=== PATIENT | female | born 1995 | race Caucasian/White ===

== ENCOUNTER → 2017-12-06 08:40 | Outpatient (CLI) | payer OTHER, SELFPAY ==
--- NOTE | 2017-12-06 08:45 | RAD_ITS ---
STUDY: X-RAY - LEFT WRIST REASON FOR EXAM: Female, 22 years old. pain s/p lifting heavy objects at work x3 days. TECHNIQUE: 4 view(s) of the wrist were obtained. COMPARISON: None. FINDINGS: Normal visualized distal radius and ulna. Normal radiocarpal articulation. Normal distal radioulnar articulation. Normal carpal bones. Normal carpal articulations. Normal carpometacarpal articulation of the thumb. Normal second through fifth carpometacarpal articulations. Normal visualized metacarpal bones. The soft tissue structures are unremarkable. RAD/Wrist min 3 Views IMPRESSION: Normal x-ray examination of the wrist. Electronically Signed: Matias Marino MD at 9:11 EDT Tel , Service support ,
== END ==
PROVIDERS: Family Provider Physician Assistant Medical; PCP Physician Assistant Medical; Visit Provider Physician Assistant
DX: M25.531 Pain in right wrist (principal)
CPT/HCPCS: 73110

== ENCOUNTER 2018-02-25 16:30 | Outpatient (RCR) | payer OTHER, SELFPAY ==
--- NOTE | 2018-01-30 18:40 | HP.OTEVAL ---
Patient's Visit Information IVONE SALGADO is a 22 year old F, referred to Occupational Therapy by DASHA Del Angel, with a diagnosis of Wrist Sprain. Date of Evaluation: 01/30/18 Occupational Therapist: Vesta aGrcia - Subjective Subjective: Pt., arrived for OT evaluation. She notd that she sprained wrist back in November. She noted two weeks later got release and another three weeks went back to job she job causing wrist pain intially. Noted that since going back to that job she start having severe pain in R wrist. She is R handed. She noted as of now she is doing other things at this time. Movement casuing back and lifitng overhead. Notes she has been icing every night and has been elvating every night. - Pain Right Wrist 5 Pain Intensity Range: 2, 8 - ROM Forearm: sup R WFL, L WNL increased pain on R to 3/10 Wrist: flexion R 0-49, L 0-79;ext R 0-39 (pain 6/10); L 0-60 Radial Abduction: R 0-63; L 0-60 ROM Comments: Radial dev on R 0-14 with increased pain to 8/10 with visible grimaces and holding breath, L 0-19; Ulnar deviation R 0-15 pain to 8/10 with increased holding breath and grimaces, L 0-30. Notes that she has increased pain with ulnar deviation. Maybe potential involvement of radioulnar ligament as well as additional ligaments. Does not seem to be direct result of injury but repetitive use and does have potential to be tendon related although appears more ligamental at this time. Pt. able to make composite fist is at 6-7/10. If pain does not reside after tx further imaging is recommended. 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 Notes it feels like knifes and needles at hitting my hand. This typically occurs at night. 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 Goal:: Ivone to increased ROM to WFL and similar to L non affected wrists 2/3 trials 75% of the time to promote increased ROM and ability to return to completed ADL/IADLs including all work related tasks by d/c. Goal:: Ivone to have no more than 1/10 pain, especially with radial or ulnar deviation, during fx tasks 4/ 5 trials 80% of the time to promote returning to work and increasing ability to complete tasks at PLOF by d/c. Goal:: Ivone to be (I) to recite and implement joint protection and correct ergonomics of R wrist to help decrease risk of further or reinjury 4/5 trials 80% of the time by d/c . Goal:: Ivone to be (I) to return to all ADl/IADls including all work tasks at PLOF 4/5 traisl 80% of the time with minimal pain by time of d/c. - Rehabilitation General Assessment: hand or fingers pain. Pain symptoms worse with radial and ulnar deviation. Pain increased to 8/10 with such movements. X-rays taken back in November indicates no fractures. ROm is limited compared to L unaffected side and strength is significantly impaired. If symptoms do not resolve by end of treatment she will need to follow up with physician. Rehabilitation Potential: Good - Anticipated Interventions Anticipated Interventions: A/AAROM/PROM, Strengthening, Edema Control, Massage, Modalities, Orthoses, Joint Protection/Energy Conservation, Ergonomic Education, Fine Motor Coord/Rohit, ADL Training, Caregiver Training, Home Program - Visit Plan Frequency: 3x /Week Duration: 4 Weeks General Plan: Ivone to be treated by OT with use of modalities for pain management, fabrication of wrist splint to be in least restrictive device, ROM, progressive strengthening, and functional tasks to promote returning to all ADL/IADls and work related tasks by d/c. TEXT: Thank you for the opportunity to evaluate your patient. For Medicare and Medicare HMO plans, please review the plan of care and approve it. It will need to be FAXED BACK to us at [phone] for Medicare purposes. Please let me know if there are questions or concerns regarding this plan of care. Physician Signature: Date:
--- NOTE | 2018-02-13 17:07 | HP.OTREVAL ---
DASHA Del Angel, It has been my pleasure to treat IVONE SALGADO over the last 7 visits for Wrist Sprain. Please see the progress note below for an update on the occupational therapy plan of care! Subjective: pt states she is doing ok- wear splint at work mostly- pt states she is hopeful to return to work when she sees the doctor 02-14-18. pt states she needs to lift 50# at work but states she doesnt have to lift that much wt. very often. 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 Objective/Function: pt demo a increase pt functional ROM of right-. Right wrist 75/75 initial was 39/49. right radial dev. 20 and ulnar dev. 25 this is a increase from 14 RD and 15 UD-pt states she is out of the splint for about two hours at a time. pt states she is sometimes sleeping with her splint on. Pt states the past two nights she has not been sleeping with her brace-. 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 Goal:: Ivone to increased ROM to WFL and similar to L non affected wrists 2/3 trials 75% of the time to promote increased ROM and ability to return to completed ADL/IADLs including all work related tasks by d/c. Goal:: Ivone to have no more than 1/10 pain, especially with radial or ulnar deviation, during fx tasks 4/ 5 trials 80% of the time to promote returning to work and increasing ability to complete tasks at PLOF by d/c. Goal:: Ivone to be (I) to recite and implement joint protection and correct ergonomics of R wrist to help decrease risk of further or reinjury 4/5 trials 80% of the time by d/c . Goal:: Ivone to be (I) to return to all ADl/IADls including all work tasks at PLOF 4/5 traisl 80% of the time with minimal pain by time of d/c. Anticipated Interventions Anticipated Interventions: A/AAROM/PROM, Strengthening, Edema Control, Massage, Modalities, Orthoses, Joint Protection/Energy Conservation, Ergonomic Education, Fine Motor Coord/Rohit, ADL Training, Caregiver Training, Home Program Please do not hesitate to contact me at [phone] by phone or if you have questions or concerns regarding this new plan of care! Sincerely, Luna Macias, OTR/L, CHT
--- NOTE | 2018-02-25 16:30 | DT_ITS ---
This patient was seen during an EMR downtime February 18, 2018 - February 25, 2018. This patient may have a combination of paper and electronic documentation or all paper documentation. All documentation is viewable within the e-chart portion of [facility] for each patient visit.
--- NOTE | 2018-03-04 14:26 | HP.OTDCSUM ---
HP - OT D/C Summary It has been my pleasure to treat IVONE SALGADO under orders from DASHA Del Angel, for the diagnosis of Wrist Sprain for a total of 8 visit(s). Please see the following information for a summary of their discharge status. - Overall Improvement % Improvement: 85 - Objective Objective/Function: Reassessment occurred on this date. Measurement are as follows: ROM wrist flexion R 0-84, L WNL; wrist ext R 0-54, L WNL. 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 She has progressed since initial evaluation and meant most goals. She will be d/c'd at this time. due to electronic downtime procedure the information from February 18- was electronically scanned into the medical record. 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 Goal:: Ivone to increased ROM to WFL and similar to L non affected wrists 2/3 trials 75% of the time to promote increased ROM and ability to return to completed ADL/IADLs including all work related tasks by d/c. Goal:: Ivone to have no more than 1/10 pain, especially with radial or ulnar deviation, during fx tasks 4/ 5 trials 80% of the time to promote returning to work and increasing ability to complete tasks at PLOF by d/c. Goal:: Ivone to be (I) to recite and implement joint protection and correct ergonomics of R wrist to help decrease risk of further or reinjury 4/5 trials 80% of the time by d/c . Goal:: Ivone to be (I) to return to all ADl/IADls including all work tasks at PLOF 4/5 traisl 80% of the time with minimal pain by time of d/c. - Plan Plan: Ivone will be d/c'd today. She is doing well. She is to continue to wear brace at work and have it off at home. She is to continue HEP for increased stability of wrist and decrease risk of reinjury, Ivone is to call with questions/ concerns. - D/C Information If there are questions or concerns regarding this patient's occupational therapy, please fell free to call me at [phone]. Thank you for the referral of this patient. Sincerely, Vesta Garcia
== END 2018-02-25 19:00 | disposition home or self-care (01) ==
LOC: OT 16:30
PROVIDERS: Family Provider Physician Assistant Medical; PCP Physician Assistant Medical; Visit Provider Physician Assistant
DX: S63.501D Unspecified sprain of right wrist, subsequent encounter (principal)
CPT/HCPCS: 97035; 97110; 97166; 97168; 97530; 97760

== ENCOUNTER → 2019-05-26 | Outpatient (CLI) | payer BC, SELFPAY ==
[2018-02-14 15:11] VITALS: BMI 32.8
== END | disposition home or self-care (01) ==
LOC: LABSPEC 17:09
PROVIDERS: Family Provider Physician Assistant Medical; PCP Physician Assistant Medical; Referring Provider Obstetrics & Gynecology; Visit Provider Obstetrics & Gynecology
DX: Z12.4 Encounter for screening for malignant neoplasm of cervix (principal)
CPT/HCPCS: 88175; G0145

== ENCOUNTER 2020-04-14 08:17 | Emergency (ER) | payer BC, SELFPAY ==
[2020-04-14 08:18] VITALS: BP 165/95; PULSE 90; RESP 16; TEMP 36.6; O2SAT 99; BMI 38.2
[2020-04-14 08:34] VITALS: BP 165/95; PULSE 90; RESP 16; TEMP 36.6; O2SAT 99
[2020-04-14 08:36] LABS: Mucous, Urine 0 SEEN /hpf (<or=2+); Red Blood Cells-Urine 0 SEEN /hpf (0-5); White Blood Cells 0 SEEN /hpf (0-5)
[2020-04-14 08:43] LABS: Absolute Lymphocyte Count 1.58 X10^3/uL (0.83-4.51); Absolute Neutrophil Count 3.9 X10^3/uL (2.0-7.7); Basophil# 0.03 X10^3/uL; Basophil% 0.5 % (0-1); Eosinophil# 0.05 X10^3/uL; Eosinophils% 0.8 % (0-5); Hemoglobin 13.2 g/dL (12.0-15.0); Lymphocyte # 1.58 X10^3/ul (4.0); Lymphocyte % 26.6 % (19-41); Mean Corpuscular Hgb 30.1 pg (27.0-32.0); Mean Corpuscular Volume 91.1 fL (81-99); Mean Platelet Vol. 10.6 fl (6.2-12.0); Monocyte% 6.7 % (0-10); NRBC Flagged by Analyzer 0 % (0-5); Neutrophil # 3.88 X10^3/uL (2.7-7.7); Neutrophil % 65.2 % (47-70); Platelet Count 217 K/mm3 (150-450); RBC Distribution Width CV 12.2 % (11.6-14.6); RBC Distribution Width SD 40.6 fl (35.1-43.9); Red Blood Count 4.39 M/mm3 (4.2-5.4)
[2020-04-14 08:48] LABS: Color, Urine Yellow (Yellow); Glucose, Dipstick Normal (Normal); Ketone-Dipstick Negative (Negative); Leukocyte Esterase-Dipstick Negative /ul (Negative); Nitrite-Dipstick Negative (Negative); Occult Blood-Urine Negative /ul (Negative); Protein-Dipstick Negative (Negative); Urine Bilirubin Dipstick Negative (Negative); Urine Clarity Clear (Clear); Urine Urobilinogen Normal (Normal)
[2020-04-14 08:51] LABS: Internal QC Validated? YES +Cl - CLEAR BKGD; Pregnancy, Serum, hCG Quali. NEGATIVE Negative
[2020-04-14 08:56] LABS: Anion Gap 3 (5-15); BUN 9 mg/dL (7-18); Calcium,Total 8.6 mg/dL (8.5-10.1); Chloride 112 mmol/L (98-107); Creatinine, Serum 0.75 mg/dL (0.55-1.02); EST Glomerular Filtration Rate 101 mL/min (>60); Est Glom Filt Rate - Afr Amer 122 mL/min (>60); Estimated Creatinine Clearance 104.98 ml/min; Glucose 92 mg/dL (74-106); Potassium 3.6 mmol/L (3.5-5.1); Sodium Level 142 mmol/L (136-145)
[2020-04-14 08:59] LABS: Squamous Epithelial Cells - UA 0-5 SEEN /hpf (5-10)
[2020-04-14 09:01] LABS: Bacteria RARE /hpf (None Seen)
--- NOTE | 2020-04-14 09:10 | CT_ITS ---
STUDY: CT ABDOMEN AND PELVIS WITHOUT CONTRAST REASON FOR EXAM: Female, 24 years old. RLQ AND RIGHT FLANK PAIN RADIATION DOSAGE (If Supplied By Facility): CTDIvol = ( 17.80 ) mGy, DLP = ( 2172.17 ) mGycm TECHNIQUE: Transaxial images were obtained from the dome of the diaphragm to the symphysis pubis without oral contrast, and without intravenous contrast. Sagittal and coronal images were reconstructed. Individualized dose optimization techniques were used for this CT. COMPARISON: None. FINDINGS: The visualized lung bases are unremarkable. The visualized portions of the heart are within normal limits. Normal liver. Normal gallbladder and extrahepatic biliary system. There is a 1 cm cyst along the inferior lateral aspect of the spleen. Mild splenomegaly. Normal pancreas. Normal bilateral adrenal glands. Normal right kidney. Normal left kidney. Normal visualized stomach. Normal small intestine. Normal colon. The appendix is visualized and appears normal. Normal abdominal aorta. Normal inferior vena cava. Normal retroperitoneum. Normal urinary bladder. A dominant follicle measuring 1.3 cm is seen in the right ovary. Normal abdominal wall. Normal osseous structures. CT/Abdomen/Pelvis W IV Cont ONLY IMPRESSION: Dominant follicle seen in the right ovary. Electronically Signed: Sudhakar Garcia, at 9:56 EDT , Service support ,
--- NOTE | 2020-04-14 09:11 | ED.VIS.GEN ---
History of Present Illness Chief Complaint: Flank Pain Informant: Patient Narrative: 24-year-old female with no reported medical problems presents with right-sided abdominal pain. She states is in her right lower quadrant. It was gradually building up over the last couple of days. Patient has not had a fever. Today she states that she had an episode of nausea and vomiting prior to arrival. She does admit to some urinary symptoms and possibly frequency. She does not have hematuria. She has no concern for . No previous surgeries in the abdomen. She has no vaginal complaints. Constipation or diarrhea. Past Medical History - Allergies and Home Meds Allergies/Adverse Reactions: Allergies No Known Allergies Allergy (Verified 04/14/20 08:17) Primary Care Physician: Lynn Davis PA [Primary Care Provider] - Prior records reviewed: Yes Surgical History: no surgical history Lives: With Family Smoking Status: Never smoker Alcohol: None Drugs: None Review of Systems General: Denies: Chills, Fever, Sweats Eyes: Denies: Visual changes - bilaterally, Diplopia ENT: Denies: Rhinorrhea, Sore throat Cardiovascular: Denies: Chest pain, Palpitations Respiratory: Denies: Dyspnea, Cough, Dyspnea on exertion Gastrointestinal: Reports: Abdominal pain, Nausea, Vomiting. Denies: Diarrhea, Melena, Hematochezia Genitourinary: Denies: Dysuria, Hematuria, Frequency Musculoskeletal: Denies: Back pain, Extremity Pain Skin: Denies: Rash, Wounds Neurological: Denies: Headache, Weakness, Numbness Physical Exam Vital Signs/Narrative: Vital Signs Temp Pulse Resp BP Pulse Ox 04/14/20 08:34 98 F 90 16 165/95 H 99 04/14/20 08:18 98 F 90 16 165/95 H 99 Inital Vital Signs reviewed: Yes General: Well nourished, Well developed, No Acute Distress Head: Normocephalic, Atraumatic Eyes: Perrl, EOMI ENT: Moist mucous membranes, No rhinorrhea Neck: Supple, Nontender Cardiovascular: Regular rate, Regular rhythm Respiratory: No distress Abdomen: Soft, Nondistended, Tender - Numbness to palpation in the right flank and right lower quadrant. Back: Nontender, Normal Inspection Extremities: Nontender, No edema Skin: Normal color, No rash Neurological: Alert, Oriented x3 Psychological: Normal affect, Normal Mood Diagnostic/Tx/Re-eval Clinical Impression(s) from Imaging Studies Abdomen/Pelvis CT 04/14/20 09:10 IMPRESSION: Dominant follicle seen in the right ovary. Electronically Signed: Sudhakar Garcia, at 9:56 EDT , Service support , Transvaginal US 04/14/20 10:03 IMPRESSION: Dominant follicle in the right ovary measuring 1.4 cm x 1.2 cm x 0.7 cm. Electronically Signed: Sudhakar Garcia, at 11:14 EDT , Service support , Laboratory Data 04/14/20 04/14/20 04/14/20 08:25 08:32 08:32 WBC 6.0 RBC 4.39 Hgb 13.2 Hct 40.0 MCV 91.1 MCH 30.1 MCHC 33.0 RDW Std Deviation 40.6 RDW Coeff of Belle 12.2 Plt Count 217 MPV 10.6 Immature Gran % (Auto) 0.200 Neut % (Auto) 65.2 Lymph % (Auto) 26.6 [place] % (Auto) 6.7 Eos % (Auto) 0.8 Baso % (Auto) 0.5 Absolute Neuts (auto) 3.9 Absolute Lymphs (auto) 1.58 Nucleated RBC % 0 Sodium 142 Potassium 3.6 Chloride 112 H Carbon Dioxide 27.0 Anion Gap 3 L BUN 9 Creatinine 0.75 Estim Creat Clear Calc 104.98 Est GFR (MDRD) Af Amer 122 Est GFR (MDRD) Non-Af 101 BUN/Creatinine Ratio 12.0 Glucose 92 Calcium 8.6 Serum , Qual Urine Color Yellow Urine Clarity Clear Urine pH 8.0 Ur Specific [place] 1.010 Urine Protein Negative Urine Glucose (UA) Normal Urine Ketones Negative Urine Occult Blood Negative Urine Nitrite Negative Urine Bilirubin Negative Urine Urobilinogen Normal Ur Leukocyte Esterase Negative Urine RBC 0 SEEN Urine WBC 0 SEEN Ur Squamous Epith Cells 0-5 SEEN Urine Bacteria RARE Urine Mucus 0 SEEN 04/14/20 08:32 WBC RBC Hgb Hct MCV MCH MCHC RDW Std Deviation RDW Coeff of [place] Plt Count MPV Immature Gran % (Auto) Neut % (Auto) Lymph % (Auto) [place] % (Auto) Eos % (Auto) Baso % (Auto) Absolute Neuts (auto) Absolute Lymphs (auto) Nucleated RBC % Sodium Potassium Chloride Carbon Dioxide Anion Gap BUN Creatinine Estim Creat Clear Calc Est GFR (MDRD) Af Amer Est GFR (MDRD) Non-Af BUN/Creatinine Ratio Glucose Calcium Serum , Qual NEGATIVE Urine Color Urine Clarity Urine pH Ur Specific [place] Urine Protein Urine Glucose (UA) Urine Ketones Urine Occult Blood Urine Nitrite Urine Bilirubin Urine Urobilinogen Ur Leukocyte Esterase Urine RBC Urine WBC Ur Squamous Epith Cells Urine Bacteria Urine Mucus - Medical Decision Making Patient was seen and evaluated on arrival for right-sided abdominal pain. Initially she was complaining of urinary complaints and I thought she could have pyelonephritis however urinalysis is clean. There is no blood or bacteria. At this point I did work-up for appendicitis. Her lab work was normal. Her CT abdomen pelvis showed an ovarian follicle. I did offer her ultrasound to better elucidate this and she did wish to have it. After ultrasound was performed the digit show an ovarian follicle. 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 If she has any worsening problems she should return to the ER. She was amenable to this plan. Patient stable for discharge. Impression: 1. Ovarian follicle 2. Abdominal pain ED Disposition - Plan for ED Patient: Disposition: Home or Assisted Living Diagnosis: Follicle cyst Prescriptions: Ibuprofen 600 mg PO Q8H PRN PRN #30 tab PRN Reason: pain Transmission Status: Received by [id number] Ondansetron [Zofran Odt] 4 mg PO Q8H PRN PRN #10 tab PRN Reason: Nausea Transmission Status: Received by [facility] Referrals: Lynn Davis PA [Primary Care Provider] -
[2020-04-14] MEDS: Ondansetron 4 MG/2 ML Vial IM (09:16)
[2020-04-14] MEDS: 0.9% Normal Saline 1,000 ML 999 ML IV (09:16)
[2020-04-14] MEDS: Morphine 4 MG/ML Syringe IV (09:16)
--- NOTE | 2020-04-14 10:03 | US_ITS ---
STUDY: ULTRASOUND OF THE FEMALE PELVIS - COMPLETE REASON FOR EXAM: Female, 24 years old. RT FLANK PAIN -- F/U CT LMP: 03/26/2020. TECHNIQUE: Transvaginal TECHNICAL QUALITY: Adequate. COMPARISON: Comparison is made with prior CT scan the abdomen and pelvis done earlier in the day. FINDINGS: The uterus is anteverted and is in a midline position. The uterus measures 6.3 cm x 3.6 cm x 2.2 cm. There is a Nabothian cyst of the cervix. The endometrium measures 8.0 mm in thickness, and is hyperechoic. There is no demonstrated endometrial mass. There is no demonstrated myometrial mass. I.U.D. - The patient does not have an I.U.D. The right ovary is visualized. The right ovary measures 3.7 cm x 3.4 cm x 2.0 cm. A dominant follicle is seen within the ovary. It measures 1.4 cm x 1.2 cm x 0.7 cm. There is no visualized right adnexal mass or complex lesion. There is normal arterial and normal venous vascularity. The left ovary is visualized. The left ovary measures 1.8 cm x 2.1 cm x 2.4 cm. There is no left ovarian cyst or ovarian mass. There is no visualized left adnexal mass or complex lesion. There is normal arterial and normal venous vascularity. There is no fluid in the cul-de-sac. US/Transvaginal Non- IMPRESSION: Dominant follicle in the right ovary measuring 1.4 cm x 1.2 cm x 0.7 cm. Electronically Signed: Sudhakar Garcia, at 11:14 EDT , Service support ,
[2020-04-14 12:04] VITALS: BP 121/65; PULSE 77; RESP 14; O2SAT 99
== END 2020-04-14 12:06 | disposition home or self-care (01) ==
PROVIDERS: Emergency Provider Student in an Organized Health Care Education/Training Program; PCP Physician Assistant Medical
DX: N83.8 Other noninflammatory disorders of ovary, fallopian tube and broad ligament (principal); R10.9 Unspecified abdominal pain
CPT/HCPCS: 74177; 76830; 80048; 81001; 84703; 85025; 93976; 96361; 96372; 96374; 99283; J7030; Q9967; A4216; J2405

== ENCOUNTER 2020-06-19 08:39 | Emergency (ER) | payer SELFPAY ==
[2020-06-19 08:40] VITALS: BP 147/82; PULSE 99; RESP 17; TEMP 37.2; O2SAT 100; BMI 38.2
--- NOTE | 2020-06-19 08:52 | ED.DCSUM_ITS ---
- ER Visit Summary Date of Service: 06/19/20 Chief Complaint: Abdominal pain History of Present Illness: The patient is a [address] Davis and Dr. Mohan. She reports that she had intermittent abdominal pain for approximately 1 month. States it lasts approximately 1 minute when it comes on. It is epigastric in location. She describes it as a sharp pain. Pain is 0 out of 10 currently and 10 out of 10 at worst. It seems to be worsened by spicy foods and relieved by milk. Reports that she is been nausea and vomited 3 times. No blood in her emesis. Her last bowel was today. Typically she goes every 2 days. She complains of frequent urination, but denies dysuria. States her last menstrual period was 4-1/2 weeks ago. She denies any vaginal bleeding or discharge. She does report she could be . She is a G0, P0. Physical Examination: Vitals: Stable. Afebrile. General: Well-nourished and well-developed. Head: Normocephalic atraumatic. Neck: Supple, no lymphadenopathy. No JVD. Nontender. Cardiovascular: Regular rate and rhythm. No murmurs. Respiratory: No respiratory distress. Clear to auscultation bilaterally. Abdominal: Soft, mild diffuse tenderness palpation that is worse in the epigastric region. No localized tenderness in the right upper or lower quadrants, nondistended, normal bowel sounds. No guarding, rebound, or peritoneal signs. Back: Nontender. Extremities: Nontender, no edema. Skin: Normal color, no rash. Neurologic: Alert and oriented ?3. Cranial nerves II through XII are intact. Normal strength and sensation. Psych: Normal affect. Test Results: CBC is normal. Chem-7 shows a chloride of 110 glucose 131. LFTs show an AST of 13. Lipase is 50. UA is negative. test is positive. Quantitative hCG shows 216. Emergency Department Course and Treatment: Patient had an IV placed. She was given Zofran IV and a GI cocktail p.o. She is resting more comfortably. Patient has no vaginal bleeding or lower abdominal pain that would be indicative of an ectopic . I do not think that an ultrasound is indicated at this time. Treatment Plan: Patient was discussed with Dr. Amanda Enrique. She will be discharged with a repeat quant in 2 days and instructed follow-up with Dr. Mohan for further evaluation. The signs and symptoms of a ectopic were discussed. She is instructed return for these. She will be discharged with Zofran and Pepcid. Disposition: To home in improved and stable condition. Impression: 1. . This note was generated with [employer] software. It may contain incorrect words, spelling, and punctuation that were not noted in review of the chart prior to signing ED Disposition - Plan for ED Patient: Instructions: ED Established Normal Symptoms Prescriptions: Famotidine [Pepcid] 20 mg PO BID #28 tab Ondansetron [Zofran Odt] 4 mg PO Q8H PRN PRN #10 tab PRN Reason: Nausea Referrals: Gerard Mohan MD [STAFF PHYSICIAN] - 2 Days
[2020-06-19 08:56] LABS: Bacteria 0 SEEN /hpf (None Seen); Mucous, Urine 0 SEEN /hpf (<or=2+); Red Blood Cells-Urine 0 SEEN /hpf (0-5)
[2020-06-19 08:57] LABS: Color, Urine Yellow (Yellow); Glucose, Dipstick Normal (Normal); Ketone-Dipstick Negative (Negative); Leukocyte Esterase-Dipstick 25 /ul (Negative); Nitrite-Dipstick Negative (Negative); Occult Blood-Urine Negative /ul (Negative); Protein-Dipstick Negative (Negative); Urine Bilirubin Dipstick Negative (Negative); Urine Clarity Clear (Clear); Urine Urobilinogen Normal (Normal)
[2020-06-19 09:03] LABS: Squamous Epithelial Cells - UA 5-10 SEEN /hpf (5-10); White Blood Cells 0-5 SEEN /hpf (0-5)
[2020-06-19] MEDS: Mag Hydrox/Al Hydrox/Simeth 30 ML UDC PO (09:04)
[2020-06-19] MEDS: 0.9% Normal Saline 1,000 ML 1000 ML IV (09:04)
[2020-06-19] MEDS: Ondansetron 4 MG/2 ML Vial IV (09:04)
[2020-06-19 09:13] LABS: Absolute Lymphocyte Count 1.63 X10^3/uL (0.83-4.51); Absolute Neutrophil Count 5.2 X10^3/uL (2.0-7.7); Basophil# 0.03 X10^3/uL; Basophil% 0.4 % (0-1); Eosinophils% 1.3 % (0-5); Hematocrit 39.7 % (37-47); Hemoglobin 12.9 g/dL (12.0-15.0); Lymphocyte # 1.63 X10^3/ul (4.0); Lymphocyte % 21.6 % (19-41); Mean Corp Hgb Conc 32.5 g/dL (32-36); Mean Corpuscular Hgb 29.9 pg (27.0-32.0); Mean Corpuscular Volume 91.9 fL (81-99); Mean Platelet Vol. 9.8 fl (6.2-12.0); Monocyte# 0.57 X10^3/uL; Monocyte% 7.5 % (0-10); NRBC Flagged by Analyzer 0 % (0-5); Neutrophil # 5.19 X10^3/uL (2.7-7.7); Neutrophil % 68.8 % (47-70); Platelet Count 249 K/mm3 (150-450); RBC Distribution Width CV 12.9 % (11.6-14.6); Red Blood Count 4.32 M/mm3 (4.2-5.4); White Blood Count 7.6 K/mm3 (4.4-11.0)
[2020-06-19 09:29] LABS: Internal QC Validated? YES +Cl - CLEAR BKGD
[2020-06-19 09:32] LABS: Pregnancy, Serum, hCG Quali. POSITIVE Negative
[2020-06-19 09:34] LABS: AST(SGOT) 13 U/L (15-37); Alanine Aminotransfer ALT/SGPT 33 U/L (13-56); Albumin, Serum 3.6 g/dL (3.2-5.0); Alkaline Phosphatase 67 U/L (45-117); Anion Gap 5 (5-15); BUN 13 mg/dL (7-18); BUN/Creat Ratio 15.7 RATIO (10-20); Calcium,Total 9.1 mg/dL (8.5-10.1); Chloride 110 mmol/L (98-107); Creatinine, Serum 0.83 mg/dL (0.55-1.02); EST Glomerular Filtration Rate 90 mL/min (>60); Est Glom Filt Rate - Afr Amer 109 mL/min (>60); Estimated Creatinine Clearance 94.86 ml/min; Globulin 3.7 g/dL (2.2-4.2); Glucose 131 mg/dL (74-106); Lipase 50 U/L (73-393); Potassium 3.9 mmol/L (3.5-5.1); Protein, Total 7.3 g/dL (6.4-8.2); Sodium Level 141 mmol/L (136-145)
[2020-06-19 09:57] LABS: hCG Titer Quant., Serum 216 mIU/mL (1-3)
== END 2020-06-19 10:30 | disposition home or self-care (01) ==
LOC: ED 09:16
PROVIDERS: Emergency Provider Emergency Medicine; PCP Physician Assistant Medical
DX: O26.899 Other specified pregnancy related conditions, unspecified trimester (principal); R10.13 Epigastric pain; Z3A.00 Weeks of gestation of pregnancy not specified
CPT/HCPCS: 80053; 81001; 83690; 84702; 84703; 85025; 96361; 96374; 99283; J7030; J2405

== ENCOUNTER → 2020-06-21 | Outpatient (CLI) | payer BC, SELFPAY ==
[2020-06-19 08:40] VITALS: BMI 38.2
[2020-06-21 11:10] LABS: hCG Titer Quant., Serum 507 mIU/mL (1-3)
== END | disposition home or self-care (01) ==
LOC: WOBLAB 09:18
PROVIDERS: PCP Physician Assistant Medical; Visit Provider Obstetrics & Gynecology
DX: N91.2 Amenorrhea, unspecified (principal)
CPT/HCPCS: 36415; 84702

== ENCOUNTER → 2020-07-05 | Outpatient (CLI) | payer BC, SELFPAY ==
[2020-06-19 08:40] VITALS: BMI 38.2
[2020-07-08 03:07] LABS: Chlamydia By Nucleic Acid AMP Negative (Negative)
[2020-07-08 08:27] LABS: Gonococcus By Nucleic Acid AMP Negative (Negative)
== END | disposition home or self-care (01) ==
PROVIDERS: Obstetrics & Gynecology
DX: Z12.4 Encounter for screening for malignant neoplasm of cervix (principal); Z11.3 Encounter for screening for infections with a predominantly sexual mode of transmission
CPT/HCPCS: 87491; 87591; 88175; G0145

== ENCOUNTER 2020-07-21 13:43 | Day surgery (SDC) | payer MEDICAID, SELFPAY ==
[2020-07-19 14:37] LABS: Hematocrit 37.1 % (37-47); Mean Corp Hgb Conc 32.3 g/dL (32-36); Mean Corpuscular Hgb 29.6 pg (27.0-32.0); Mean Corpuscular Volume 91.4 fL (81-99); Platelet Count 236 K/mm3 (150-450); RBC Distribution Width CV 12.6 % (11.6-14.6); RBC Distribution Width SD 42.3 fl (35.1-43.9); Red Blood Count 4.06 M/mm3 (4.2-5.4); White Blood Count 9.7 K/mm3 (4.4-11.0)
--- NOTE | 2020-07-21 08:54 | PCM.HP.BLA ---
History and Physical Date of Admission: 07/21/20 Date: 07/19/2020 Name: IVONE SALGADO Age: 25 Date of : 1995 HISTORY OF PRESENT ILLNESS: On 07/19/2020, Ivone Salgado, a 25 year old female 0 0 1 0 0, presented for: -- Inevitable Miscarriage -- Ivone is being seen for follow up visit. FOB is with pt for visit today. Pt had US prior to visit that showed nonviable IUP. Dr. Mohan to go over US with pt. Pt and FOB opted to do D and C. Procedure consents were signed and reviewed with pt. Medications and allergies are up tod date. ALLERGIES: No Known Allergies MEDICATIONS HISTORY: Current medications prescribed by our practice are: 1. promethazine 12.5 mg tablet, 1 or 2 pills by mouth every 6 hours as needed for nausea REVIEW OF SYSTEMS: GENERAL - Denies fever, or chills SKIN - Denies skin changes EYES - Denies visual changes EARS - Denies difficulty hearing NOSE - Denies nasal congestion or bleeding MOUTH - Denies sore throat or difficulty swallowing NECK - Denies pain or swelling RESPIRATORY - Denies shortness of breath or wheezing CARDIOVASCULAR - Denies palpitations or chest pain GASTROINTESTINAL - Denies nausea, vomiting, diarrhea, constipation GENITOURINARY - Denies dysuria, frequency of urination, incontinence of urine MUSCULOSKELETAL - Denies joint or muscle pain NEUROLOGICAL - Denies localized numbness or weakness PSYCHIATRIC - Denies depression or anxiety ENDOCRINE - Denies heat or cold intolerance, weight loss or gain HEMATO-IMMUNOLOGIC - Denies excesive bleeding with cuts PAST HISTORY: Breast/Ovarian/Colon Cancers - Maternal Grandmother had Breast Cancer approximately age 50-60 Infections - Varacella Vaccine Illnesses - no serious past illnesses Accidents - None History of Abnormal PAPS - Denies Hospitalizations - see surgery SURGICAL HISTORY: 1. T and A, 2005 2. 2012 [place] Teeth Removal MENSTRUAL HISTORY: LMP Known?- DefiniteAmount/Duration - 5 days, Regularity - Regular, Frequency - monthly days, LMP - 05/19/20, Age Onset Menarche - 13 PAST PREGNANCIES: Total Pregnancies - 1; Full Term Pregnancies - 0; Premature - 0; Abortions, Induced - 0; Abortions, Spontaneous - 1; Ectopics - 0; Multiple Births - 0; Living Children - 0 FAMILY HISTORY: MaternalGrandparent - Carcinoma of breast; MaternalGrandparent - Type 2 Diabetes; SOCIAL HISTORY: Alcohol Use - RARELY Smoking - Never Diet - no special diet Lifestyle - moderate stress lifestyle and single Exercise - active work Seat Belt Use - always Employer - [employer] 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 Threaten Antepart PLAN BY DIAGNOSIS: 1. Inevitable Miscarriage. Reviewed u/s with patient and showing 8w2d IUP without FHTs. Discussed options for treatment including expectant management vs proceeding with suction D and E and pt desires the surgery. Discussed RBAs and all questions answered.
[2020-07-21 14:01] VITALS: BP 129/78; PULSE 85; RESP 16; TEMP 36; O2SAT 99; BMI 41.8
[2020-07-21] MEDS: Lactated Ringers 1,000 ML 100 ML IV (14:26)
--- NOTE | 2020-07-21 15:15 | POC_PTH ---
PATIENT: CHUCKY PALACIOS LOC: [facility] [place] U#:[id number] AGE/SX: 25/F ROOM: RE07/21/[address]: Dr. Gerard Mohan MD : 1995 BED: DIS: 07/21/2020 SPEC #: [id number] RECD: 07/22/20 07:34 STATUS: JAMAAL REMontez #: [id number] ALMA ROSA: 07/21/20 15:[address]: Gerard Mohan DEPT: SURGICAL PATHOLOGY RECD BY: Mary Quiroz ENTERED: 07/22/20 09:01 SP TYPE: PROD CONC OTHR DR: DASHA Chery Tissues: Product of conception, NOS Procedures: Surgery Specimen Level IV HEADER OPERATION: Suction D & C PRE-OP DIAGNOSIS: Inevitable miscarriage TISSUE SUBMITTED: Products of conception MICROSCOPIC DIAGNOSIS Products of conception: Decidua and immature chorionic villi (products of conception). SJ:reena 07/23/20 MICROSCOPIC DESCRIPTION Slides are reviewed. GROSS DESCRIPTION Received in fixative is one container labeled with the patient's name and designated products of conception. The specimen consists of multiple fragments of pink hemorrhagic soft tissue that in aggregate measure 5.5 x 5 x 2 cm. tissue is not identified. Insurance Verification Specialist sections are submitted in three cassettes. / SJ:reena 07/22/20 TC:5 CPT: 39331
--- NOTE | 2020-07-21 15:19 | PCM.OPRPT ---
Report of Operation Date of Procedure: 07/21/20 Pre-Operative Diagnosis: Inevitable Miscarriage Post-Operative Diagnosis: Inevitable Miscarriage Surgery/Procedure Performed:: Suction Dilation and Evacuation Description of Surgical Findings:: 10 cm endometrial cavity with products of conception present. Type of Anesthesia:: General - LMA Anesthesiologist: Alpesh Castro Specimen's removed: Products of conception Estimated Blood Loss (mL): Minimal Fluids Replaced: Crystalloid Description of Procedure: Surgeon: Gerard Mohan MD, FACOG Indication: 25 year old patient with incomplete AB at 8 weeks 6-day weeks gestation with a 8-week 2-day IUP without FHTs. Pt has been counseled regarding the risks, benefits, and alternatives of this procedure and all questions were answered. Procedure: Patient was taken to the operating room where she was given IV sedation. The patient was prepped and draped in the usual sterile fashion. The anterior cervix was grasped with a tenaculum and cervix was dilated. An 9 mm suction curette was inserted into the cervix and all contents removed. Uterus was gently curetted and remaining tissue was removed by reinserting the suction curette. The patient tolerated the procedure well and was taken to the recovery room in satisfactory condition. Sponge, instruments and needle counts were all correct. There were no apparent complications of the surgery. Grafts/Implants Used: None - Complications None - Admit VTE Documentation VTE Present on Admission: Yes VTE Mechan Device Prophylaxis: SCD's
--- NOTE | 2020-07-21 15:23 | DCINST_ITS ---
Discharge Diet: No Restrictions Discharge Activity: Return to Normal Activity, May Shower, May Take a Tub Bath May resume sexual activity in: 2 weeks Call your doctor if you observe: Fever of 101 or Higher, Inability to urinate, Inability to have a bowel movement, Using more than one pad per hour Allergies/Adverse Reactions: Allergies No Known Allergies Allergy (Verified 07/21/20 13:58) Medications to take at Discharge Famotidine [Pepcid] 20 mg PO BID #28 tab 06/19/20 proMETHazine tablet [Phenergan tablet] 12.5 mg PO PRN PRN 07/19/20 Primary Care Physician: Lynn Davis, PA [Primary Care Provider] - Test Results: Test results from this visit will be discussed in further detail at your follow- up appointment, if applicable. Please Follow Up With: Gerard Mohan MD When: 2-3 weeks
[2020-07-21] MEDS: Lubricating Jelly 60 GM Tube 30 GM TOPICAL (15:31)
[2020-07-21 15:51] VITALS: BP 129/78; BP 145/85; PULSE 105; RESP 20; TEMP 36.2; O2SAT 99
[2020-07-21 15:55] VITALS: BP 129/78; BP 150/81; PULSE 91; RESP 18; O2SAT 100
[2020-07-21 16:00] VITALS: BP 129/78; BP 139/70; PULSE 89; RESP 16; O2SAT 100
[2020-07-21 16:05] VITALS: BP 128/82; BP 129/78; PULSE 73; RESP 16; TEMP 36.5; O2SAT 100
[2020-07-21] MEDS: HYDROcodone Bitartrate/Apap 5/325 Tablet PO (16:22)
[2020-07-21 17:29] VITALS: BP 127/76; BP 129/78; PULSE 85; RESP 16; TEMP 37.2; O2SAT 99
== END 2020-07-21 17:32 | disposition home or self-care (01) ==
LOC: SDC 13:44 → AC 13:45
PROVIDERS: PCP Physician Assistant Medical; Referring Provider Obstetrics & Gynecology; Visit Provider Obstetrics & Gynecology
PROC: (CPT 59812; principal; 2020-07-21 15:00)
DX: O03.4 Incomplete spontaneous abortion without complication (principal); K21.9 Gastro-esophageal reflux disease without esophagitis; Z79.899 Other long term (current) drug therapy
CPT/HCPCS: 01965; 59812; 36415; 85027; 86850; 86900; 86901; 87426; 88305; C9803; J2405

== ENCOUNTER 2020-09-15 12:18 | Emergency (ER) | payer BC, SELFPAY ==
[2020-09-15 12:19] VITALS: BP 162/87; PULSE 110; RESP 17; TEMP 37.6; O2SAT 98; BMI 43.2
--- NOTE | 2020-09-15 12:41 | RAD_ITS ---
STUDY: X-RAY CHEST REASON FOR EXAM: Female, 25 years old. COUGH, SHORTNESS OF BREATH X SEVERAL DAYS TECHNIQUE: Single AP portable view of the chest. COMPARISON: None. FINDINGS: The lungs are clear and expanded. There is no demonstrated pleural abnormality. Normal size heart. Normal mediastinum and renae. Normal visualized pulmonary arteries. Normal visualized aortic arch and descending thoracic aorta. Normal visualized thoracic spine. Normal visualized ribs, clavicles, and shoulders. There is no demonstrated abnormality of the visualized soft tissue structures of the upper abdomen. RAD/Chest 1 View (Portable) IMPRESSION: Normal x-ray examination of the chest. Electronically Signed: Glen Harrington, at 13:36 EST Tel , Service support ,
--- NOTE | 2020-09-15 12:43 | ED.DCSUM_ITS ---
- ER Visit Summary Date of Service: 09/15/20 Chief Complaint: Cough and sore throat History of Present Illness: The patient is a 25 F who presents with cough and sore throat that is been getting worse over the past 2 days. Patient states she has some rhinorrhea and is coughing up some sputum. Patient is unsure of the color. Patient states she is having some heaviness in her chest. Patient also admits to some palpitations. Patient admits to nausea but denies any vomiting. Patient admits to chills but denies any fevers. Patient also admits to a headache. Patient denies any loss of taste or smell. Physical Examination: Vital signs are stable except for mild tachycardia of 110. Patient is afebrile. Patient is in no acute distress. Oral mucosa is pink and moist. Oropharynx showed some mild postnasal drainage. There are no exudates. Neck is supple. Trachea is midline. There is no JVD. Heart was regular and slightly tachycardic. Lungs are clear but diminished bilaterally. There is good respiratory effort. Abdomen is soft. Bowel sounds are normal. There is no tenderness. Cranial nerves II through XII are intact. There are no focal motor or sensory deficits. Test Results: Portable 1 view chest x-ray was obtained. On my interpretation, lung richmond are clear. There is normal cardiac silhouette. Bony thorax is normal. There is no acute process noted. Radiologist also interpreted the x- ray and agrees. CBC and comprehensive metabolic profile were within normal limits. D-dimer was normal. Covid 19 rapid antigen was negative. Influenza swab was negative. Emergency Department Course and Treatment: Patient was given albuterol inhaler. Patient was feeling better on reevaluation. Patient was instructed to use her albuterol as needed. Patient was instructed to follow-up with her primary care physician in 5 to 7 days. Patient understood and was agreeable with the plan. All questions were answered. Disposition: Discharge home Impression: 1. Viral illness This note was generated with [employer] dictation software. It may contain incorrect words, spelling, and punctuation that were not noted in review of the chart prior to signing ED Disposition - Plan for ED Patient: Disposition: Home or Assisted Living Diagnosis: Viral upper respiratory tract infection with cough Instructions: ED URI, Viral, No Abx (Adult) Referrals: Susan,Lynn PA, PA [Primary Care Provider] - 3-5 Days
[2020-09-15 13:18] LABS: D-Dimer Quantitative (DVT/PE) <= 0.27 FEU/ug/m (0.27-0.49)
[2020-09-15 13:25] LABS: AST(SGOT) 21 U/L (15-37); Alanine Aminotransfer ALT/SGPT 42 U/L (13-56); Albumin, Serum 3.7 g/dL (3.2-5.0); Alkaline Phosphatase 85 U/L (45-117); Anion Gap 4 (5-15); BUN 15 mg/dL (7-18); Calcium,Total 8.8 mg/dL (8.5-10.1); Chloride 110 mmol/L (98-107); Creatinine, Serum 0.71 mg/dL (0.55-1.02); EST Glomerular Filtration Rate 107 mL/min (>60); Est Glom Filt Rate - Afr Amer 129 mL/min (>60); Estimated Creatinine Clearance 109.94 ml/min; Globulin 3.6 g/dL (2.2-4.2); Glucose 106 mg/dL (74-106); Potassium 3.9 mmol/L (3.5-5.1); Protein, Total 7.3 g/dL (6.4-8.2); Sodium Level 142 mmol/L (136-145)
[2020-09-15 13:30] VITALS: PULSE 103; RESP 15
[2020-09-15 13:45] LABS: Absolute Lymphocyte Count 1.17 X10^3/uL (0.83-4.51); Basophil# 0.02 X10^3/uL; Basophil% 0.2 % (0-1); Eosinophil# 0.21 X10^3/uL; Eosinophils% 2.6 % (0-5); Hematocrit 39.6 % (37-47); Hemoglobin 12.8 g/dL (12.0-15.0); Lymphocyte # 1.17 X10^3/ul (4.0); Lymphocyte % 14.3 % (19-41); Mean Corp Hgb Conc 32.3 g/dL (32-36); Mean Corpuscular Hgb 29.6 pg (27.0-32.0); Mean Corpuscular Volume 91.5 fL (81-99); Mean Platelet Vol. 10.5 fl (6.2-12.0); Monocyte# 0.84 X10^3/uL; Monocyte% 10.2 % (0-10); NRBC Flagged by Analyzer 0 % (0-5); Neutrophil # 5.95 X10^3/uL (2.7-7.7); Neutrophil % 72.5 % (47-70); Platelet Count 251 K/mm3 (150-450); RBC Distribution Width CV 13.1 % (11.6-14.6); RBC Distribution Width SD 42.9 fl (35.1-43.9); Red Blood Count 4.33 M/mm3 (4.2-5.4); White Blood Count 8.2 K/mm3 (4.4-11.0)
[2020-09-15 14:59] VITALS: BP 147/79; PULSE 103; RESP 21; O2SAT 96
== END 2020-09-15 15:00 | disposition home or self-care (01) ==
PROVIDERS: Emergency Provider Emergency Medicine; PCP Physician Assistant Medical
DX: J06.9 Acute upper respiratory infection, unspecified (principal)
CPT/HCPCS: 71045; 80053; 85025; 85379; 87426; 87804; 94640; 99285; A4216

== ENCOUNTER 2021-01-10 14:50 | Emergency (ER) | payer OTHER, SELFPAY ==
[2021-01-10 14:52] VITALS: BP 158/86; PULSE 98; RESP 18; TEMP 36.8; O2SAT 100; BMI 43.2
[2021-01-10 16:09] LABS: Absolute Lymphocyte Count 2.17 X10^3/uL (0.83-4.51); Basophil# 0.04 X10^3/uL; Basophil% 0.3 % (0-1); Eosinophil# 0.18 X10^3/uL; Eosinophils% 1.4 % (0-5); Hematocrit 37.3 % (37-47); Hemoglobin 12.4 g/dL (12.0-15.0); Lymphocyte # 2.17 X10^3/ul (0.83-4.51); Lymphocyte % 16.4 % (19-41); Mean Corp Hgb Conc 33.2 g/dL (32-36); Mean Corpuscular Hgb 29.3 pg (27.0-32.0); Mean Corpuscular Volume 88.2 fL (81-99); Mean Platelet Vol. 9.9 fl (6.2-12.0); Monocyte# 0.73 X10^3/uL; Monocyte% 5.5 % (0-10); NRBC Flagged by Analyzer 0 % (0-5); Neutrophil # 10.02 X10^3/uL (2.7-7.7); Neutrophil % 75.9 % (47-70); Platelet Count 241 K/mm3 (150-450); RBC Distribution Width SD 42.1 fl (35.1-43.9); Red Blood Count 4.23 M/mm3 (4.2-5.4); White Blood Count 13.2 K/mm3 (4.4-11.0)
[2021-01-10] MEDS: Ondansetron 4 MG/2 ML Vial IV (16:10)
[2021-01-10] MEDS: Acetaminophen 500 MG Tablet 1000 MG PO (16:10)
[2021-01-10] MEDS: 0.9% Normal Saline 1,000 ML 1000 ML IV (16:10)
[2021-01-10 16:12] LABS: Mucous, Urine 0 SEEN /hpf (<or=2+); Red Blood Cells-Urine 0 SEEN /hpf (0-5); White Blood Cells 0 SEEN /hpf (0-5)
[2021-01-10 16:20] LABS: Color, Urine Yellow (Yellow); Glucose, Dipstick Normal (Normal); Ketone-Dipstick Negative (Negative); Leukocyte Esterase-Dipstick Negative /ul (Negative); Nitrite-Dipstick Negative (Negative); Occult Blood-Urine Negative /ul (Negative); Protein-Dipstick Negative (Negative); Urine Bilirubin Dipstick Negative (Negative); Urine Clarity Clear (Clear); Urine Urobilinogen Normal (Normal); Urine pH 6.5 (5.0 - 8.0)
[2021-01-10 16:28] LABS: Bacteria 1+ /hpf (None Seen); Squamous Epithelial Cells - UA 0-5 SEEN /hpf (5-10)
[2021-01-10 16:40] LABS: ALB/GLOB Ratio 0.9 RATIO (0.9-2.4); AST(SGOT) 6 U/L (15-37); Alanine Aminotransfer ALT/SGPT 17 U/L (13-56); Albumin, Serum 3.4 g/dL (3.2-5.0); Alkaline Phosphatase 65 U/L (45-117); Anion Gap 9 (5-15); BUN 6 mg/dL (7-18); BUN/Creat Ratio 10.2 RATIO (10-20); Calcium,Total 8.8 mg/dL (8.5-10.1); Chloride 106 mmol/L (98-107); Creatinine, Serum 0.59 mg/dL (0.55-1.02); EST Glomerular Filtration Rate 133 mL/min (>60); Est Glom Filt Rate - Afr Amer 161 mL/min (>60); Globulin 3.9 g/dL (2.2-4.2); Glucose 76 mg/dL (74-106); Potassium 3.3 mmol/L (3.5-5.1); Protein, Total 7.3 g/dL (6.4-8.2); Sodium Level 139 mmol/L (136-145)
--- NOTE | 2021-01-10 16:59 | ED.VISSUMM ---
- ER Visit Summary Date of Service: 01/10/21 Chief Complaint: Abdominal pain History of Present Illness: The patient is a [address] Davis. She is a G2, P0 at 12 weeks 6 days by ultrasound. She sees Dr. Mohan for this. She reports that approximately 10 hours ago she had the onset of a sharp suprapubic pain. States it will last 30 to 40 seconds at a time. Pain Zeta 10 at worst and 5-10 currently. Is worsened by movement and bending over. Is relieved by remaining still and laying flat. She reports that she was nauseated and vomited last night. She has not vomited today, but she does remain nauseated. No diarrhea. Her last problem was today. No melena hematochezia. No dysuria or frequency. No vaginal bleeding or discharge. Physical Examination: Vitals: Stable. Afebrile. General: Well-nourished and well-developed. Head: Normocephalic atraumatic. Neck: Supple, no lymphadenopathy. No JVD. Nontender. Cardiovascular: Regular rate and rhythm. No murmurs. Respiratory: No respiratory distress. Clear to auscultation bilaterally. Abdominal: Soft, mild suprapubic tenderness to palpation, nondistended, normal bowel sounds. No guarding, rebound, or peritoneal signs. Back: Nontender. Extremities: Nontender, no edema. Skin: Normal color, no rash. Neurologic: Alert and oriented ?3. Cranial nerves II through XII are intact. Normal strength and sensation. Psych: Normal affect. Test Results: CBC shows a white count of 13.2 with 76 segmented neutrophils and 16 lymphocytes. Chem-7 shows a potassium of 3.3 and BUN of 6. LFTs show an AST of 6. UA shows 1+ bacteria but no evidence of infection otherwise. This was sent for culture. Emergency Department Course and Treatment: Patient had an IV placed. She is given a liter normal saline. She was given Zofran IV and Tylenol p.o. She is resting comfortably. heart tones were 152. Treatment Plan: Patient will be discharged with Zofran. Instructed to follow-up with her primary care physician in 1 to 2 days if not improving. Return to the emergency department for any worsening symptoms. Disposition: To home in improved and stable condition. Impression: 1. Abdominal pain, uncertain cause. 2. First trimester . This note was generated with [employer] software. It may contain incorrect words, spelling, and punctuation that were not noted in review of the chart prior to signing ED Disposition - Plan for ED Patient: Disposition: Home or Assisted Living Instructions: ED Abdominal Pain Unkn Cause Fem Prescriptions: Ondansetron [Zofran Odt] 4 mg PO Q8H PRN PRN #10 tablet PRN Reason: Nausea Prescription Printed Referrals: Gerard Mohan MD [STAFF PHYSICIAN] - 1-2 Days if not improving Lynn Davis PA [Primary Care Provider] - 1-2 Days if not improving
[2021-01-10 17:35] VITALS: BP 133/58; PULSE 92; RESP 18; O2SAT 100
== END 2021-01-10 17:41 | disposition home or self-care (01) ==
LOC: ED 15:49
PROVIDERS: Emergency Provider Emergency Medicine; PCP Physician Assistant Medical
DX: O26.891 Other specified pregnancy related conditions, first trimester (principal); R10.30 Lower abdominal pain, unspecified; Z3A.12 12 weeks gestation of pregnancy
CPT/HCPCS: 80053; 81001; 85025; 96361; 96374; 99285; J7030; A4216; J2405

== ENCOUNTER 2021-01-31 22:06 | Emergency (ER) | payer OTHER, SELFPAY ==
[2021-01-31 22:07] VITALS: BP 136/91; PULSE 101; RESP 16; TEMP 36.4; O2SAT 98; BMI 44.6
--- NOTE | 2021-01-31 22:42 | US_ITS ---
STUDY: SECOND AND THIRD TRIMESTER OBSTETRICAL ULTRASOUND REASON FOR EXAM: Female, 25 years old spotting and cramps today TECHNIQUE: Transvaginal PRIOR ULTRASOUND: None. FINDINGS: There is a single intrauterine fetus. The fetus is in a cephalic presentation. There is demonstrated cardiac activity with a heart rate of 162 bpm. There is a normal amniotic fluid volume. The largest amniotic fluid pocket measures 4.3 cm. The placenta is posterior and not low-lying. There are Grade 0 placental changes. The cervix measures 3 cm in length. Trace free fluid within the endocervical canal. The adnexal regions are not visualized. BPD: 3.2 cm = 16 weeks, 0 day(s) HC: 12.9 cm = 13 weeks, 3 day(s) AC: 10.2 cm = 16 weeks, 1 day(s) FL: 1.9cm = 15 weeks, 5 day(s) EGA by ultrasound: 16 weeks 0 day(s) PABLO by ultrasound: 07/18/21 Estimated weight: 141 grams Weight percentile: 49% US/Transvaginal w/Preg US IMPRESSION: Living intrauterine with estimated gestational age of 16 weeks and 0 days. Trace free fluid within the endocervical canal. Cervical os is closed. Electronically Signed: Pablo Real MD at 23:49 EDT Tel , Service support ,
--- NOTE | 2021-01-31 22:48 | NURSING ---
Reports she was bit by lab rat at work and started on atb - see med list
--- NOTE | 2021-01-31 23:22 | ED.VIS.FEGU ---
HPI HPI - Female History of Present Illness Chief Complaint: Vag Bleeding Informant: patient Pain Pain: Positive for Pelvic Pain and Vaginal Pain Onset: Today and Hours Context: Sudden Onset Timing: Continuous and Waxes and wanes Quality: Positive for Cramping (Described as severe menstrual cramp) Location: - (Lower pelvic/abdominal area centrally) Current Severity: Mild Maximum Severity: Severe Worsened by: - (Nothing) Relieved by: - (Nothing) Bleeding Issue: Positive for Vaginal bleeding; Negative for Passing clots and Passing tissue Onset: Hours Context: Sudden Onset Timing: Continuous Current Severity: Spotting Severity: Mild Maximum Severity: Spotting Associated Symptoms Associated Symptoms: Positive for Frequency; Negative for Dysuria, Urgency and Hematuria Test: Positive and Serum Sexually: Positive for Active and Single Partner Control: No control P: 0 Ab: 1 Narrative Narrative: Patient is a 25-year-old G2, P0 AB 1 (spontaneous) female with a positive blood who presents with cramping lower pelvic abdominal pain that started at approximately 2030. She has had vaginal spotting since. She denies passage of clots or tissue. She denies history of STD. She reports nothing makes the pain better or worse. She does report nausea without vomiting or diarrhea. She does report frequency without dysuria or hematuria. She denies aura the staff symptoms. She denies cardiac respiratory symptoms. Prior similar symptoms: No Recent Illness/Hospitalization: No PFSH [facility] Medical History (Updated 02/01/21 @ 00:[address] Cristi Guadarrama MD) Spontaneous Home Medications famotidine 20 mg PO BID #28 tab 06/19/20 [Rx Last Taken Unknown] clindamycin HCl 300 mg PO Q8H 01/31/21 [History Last Taken Unknown] Allergy/AdvReac Type Severity Reaction Status Date / Time No Known Allergies Allergy Verified 01/31/21 22:10 Social History (Updated 01/31/21 @ 23:[address] Cristi Guadarrama MD) household members: significant other Smoking Status: Never smoker alcohol intake: never substance use type: does not use ROS ROS ED Constitutional Constitutional ED: Denies chills, fever(s), subjective or sweats Eyes Eyes: Denies blurry vision or change in vision ENT ENT ED: Denies ear pain, rhinorrhea or sore throat Cardiovascular Cardiovascular: Denies chest pain or palpitations Respiratory/Chest Respiratory/Chest: Denies cough, dyspnea or dyspnea on exertion Gastrointestinal Gastrointestinal: Reports abdominal pain and nausea; Denies constipation, diarrhea, melena or vomiting Genitourinary Genitourinary ED: Reports urinary frequency and vaginal bleeding; Denies dysuria or hematuria Musculoskeletal Musculoskeletal: Denies arthralgias, myalgias or neck pain Integumentary Denies rash Neurologic Neurologic: Denies headache(s), paresthesias or weakness Endocrine Endocrinology: Denies polydipsia, polyphagia or polyuria Hematologic/Lymphatic Hematologic/Lymphatic: Denies easy bleeding or easy bruising EXAM Physical Exam Const Vital Signs: 01/31/21 22:07 Temperature 97.5 F L Temperature Source Temporal Pulse Rate 101 H Respiratory Rate 16 Blood Pressure 136/91 H Blood Pressure Mean 106 Pulse Ox 98 Oxygen Delivery Method Room Air Positive well nourished, well developed and obese General Appearance ED: well developed and NAD Nutritional Appearance: obese HEENT Reports moist mucous membranes HEENT Narrative: Nares patent without discharge. Right and left ear appear normal. Posterior pharynx unremarkable. Eyes PERRL and EOMs intact bilaterally General Eye ED: Negative for pale conjunctiva or scleral icterus Neck no lymphadenopathy, supple and no JVD Resp normal respiratory effort and clear to auscultation bilaterally Cardio regular rate, regular rhythm, S1 normal heart sound, no murmurs and no JVD GI soft to palpation, non-distended and no masses Auscultation: normoactive bowel sounds Palpation: tender suprapubic; Negative for guarding or rigid no CVA tenderness and external exam normal Narrative: The service is oblong. There is no active bleeding. There is scant amount of blood in the vaginal vault. Patient has significant discomfort on bimanual exam. Due to body habitus and discomfort bimanual exam is limited. External Female Exam: normal appearance of the urethra; Negative for inguinal lymphadenopathy Speculum Exam - Vagina: vaginal bleeding; Negative for tissue present in vagina or vaginal mass Speculum Exam - Cervix: nulliparous Bimanual Exam - Vag & Uterus: other Limited as previously described Back/Spine no CVA tenderness Thoracic Spine / Upper Back: thoracic spinal tenderness Lumbar Spine / Lower Back: lumbar spinal tenderness Neuro oriented x3 and no sensory deficits noted Sensorium / Orientation: alert Motor Exam: strength 5/5 throughout Psych mental status grossly normal Skin no rashes or lesions noted and no wounds MDM MDM MDM Narrative Medical decision making narrative: Ultrasound was obtained to assess for viability, position of placenta and if there is any other abnormality noted. Patient has a positive blood. RhoGam is not needed. Radiography Diagnostic Testing: Radiology Impression Obstetrics Ultrasound 01/31/21 22:42 IMPRESSION: Living intrauterine with estimated gestational age of 16 weeks and 0 days. Trace free fluid within the endocervical canal. Cervical os is closed. Electronically Signed: Pablo Real MD at 23:49 EDT Tel , Service support , Ultrasound reveals a single live intrauterine . The cervical os is closed. There is trace of fluid noted in the endocervical canal. 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 Discharge Plan Triage Chief Complaint: Vag Bleeding ED Provider: Cristi Guadarrama Dx/Rx/DC Orders Clinical Impression: Threatened in second trimester Instructions: Bleeding During Early Prescriptions: No Action famotidine 20 MG tablet 20 mg PO BID Qty: 28 RF: 0 clindamycin HCl 300 mg Capsule 300 mg PO Q8H RF: 0 Primary Care Provider: Lynn Davis Referrals: Gerard Mohan MD [STAFF PHYSICIAN] - 1 Week Lynn Davis PA [Primary Care Provider] - Disposition Disposition: Home, self care
[2021-02-01 00:26] VITALS: PULSE 98; RESP 16; TEMP 36.6; O2SAT 98
[2021-02-01 00:28] VITALS: BP 129/73; PULSE 88; RESP 14; TEMP 36.7; O2SAT 99
== END 2021-02-01 00:56 | disposition home or self-care (01) ==
LOC: ED 02-01 00:49
PROVIDERS: Emergency Provider Emergency Medicine; PCP Physician Assistant Medical
DX: O20.0 Threatened abortion (principal); O99.212 Obesity complicating pregnancy, second trimester; Z3A.16 16 weeks gestation of pregnancy
CPT/HCPCS: 76817; 99284; A4216

== ENCOUNTER 2021-02-07 09:00 | Emergency (ER) | payer OTHER, SELFPAY ==
[2021-02-07 09:00] VITALS: BP 138/87; PULSE 95; RESP 18; TEMP 36.6; O2SAT 100; BMI 44.6
[2021-02-07 09:02] VITALS: BP 138/87; PULSE 95; RESP 18; TEMP 36.6; O2SAT 100
--- NOTE | 2021-02-07 09:18 | ED.VIS.FEGU ---
HPI HPI - Female History of Present Illness Chief Complaint: Complaint Informant: patient Narrative Narrative: Patient presents with urinary retention and dysuria. She states that around 3 AM she stopped urinating. She was having dysuria yesterday. And now she has not been able to urinate. She is having some lower abdominal discomfort. She denies any history of urinary tract infections in the past but she is currently 17 weeks gestation. She has had no issues with this up until now. She denies having a fever. No nausea or vomiting. [facility] Medical History Spontaneous Home Medications famotidine 20 mg PO BID #28 tab 06/19/20 [Rx Last Taken Unknown] clindamycin HCl 300 mg PO Q8H 01/31/21 [History Last Taken Unknown] Allergy/AdvReac Type Severity Reaction Status Date / Time No Known Allergies Allergy Verified 02/07/21 09:02 Social History household members: significant other Smoking Status: Never smoker alcohol intake: never substance use type: does not use ROS ROS ED Constitutional Constitutional ED: Denies chills or fever(s) Eyes Eyes: Denies blurry vision, change in vision or diplopia ENT ENT ED: Denies ear pain, rhinorrhea or sore throat Cardiovascular Cardiovascular: Denies chest pain or palpitations Respiratory/Chest Respiratory/Chest: Denies cough, dyspnea or sputum Gastrointestinal Gastrointestinal: Denies abdominal pain, diarrhea, nausea or vomiting Genitourinary Genitourinary ED: Reports dysuria and other Details: Urinary retention Musculoskeletal Musculoskeletal: Denies back pain or neck pain Integumentary Denies change in pigmentation or rash Neurologic Neurologic: Denies headache(s), numbness or weakness Psychiatric Psychiatric: Denies anxiety or depression Endocrine Endocrinology: Denies polydipsia or polyuria EXAM Physical Exam Const Vital Signs: 02/07/21 09:00 02/07/21 09:02 Temperature 98 F 98 F Temperature Source Temporal Temporal Pulse Rate 95 95 Respiratory Rate 18 18 Blood Pressure 138/87 H 138/87 H Blood Pressure Mean 104 104 Pulse Ox 100 100 Oxygen Delivery Method Room Air Room Air Positive well nourished and well developed General Appearance ED: well developed and NAD HEENT Reports moist mucous membranes normocephalic and atraumatic; Negative for tenderness Eyes PERRL and EOMs intact bilaterally Neck supple and no JVD Chest Wall Chest: Negative for tenderness Resp normal respiratory effort and clear to auscultation bilaterally Effort and Inspection: Negative for respiratory distress Cardio regular rate, regular rhythm and no murmurs Rate: regular rate Rhythm: regular rhythm GI soft to palpation GI Narrative: Gravid appropriate to dates. There is some suprapubic tenderness. Palpation: soft Back/Spine no CVA tenderness and no thoracic nor lumbar tenderness Cervical Spine: Negative for cervical spine tenderness Extremity normal to inspection and full ROM General Extremety ED: Negative for tenderness Neuro oriented x3, CN's II-XII intact bilaterally and no sensory deficits noted Sensorium / Orientation: awake and alert Motor Exam: strength 5/5 throughout Psych mental status grossly normal Skin no rashes or lesions noted MDM MDM MDM Narrative Medical decision making narrative: I did a bedside ultrasound and it shows the bladder is pretty full of urine. The fetus still has good movement. heart tones were around 145. Noble catheter was placed and she had 1300 cc of urine that returned. Urinalysis has no white blood cells, no bacteria, no leukocytes or nitrates. I did discuss with Dr. Yessi Blair, on-call for [employer]. They will follow up with the patient later this week. The patient will go home with a Noble catheter and leg bag. Lab Data Labs: Laboratory Results - last 24 hr 02/07/21 09:34 Urine Color Yellow Urine Clarity Clear Urine pH 7.0 Ur Specific [place] 1.010 Urine Protein Negative Urine Glucose (UA) Normal Urine Ketones Negative Urine Occult Blood Negative Urine Nitrite Negative Urine Bilirubin Negative Urine Urobilinogen Normal Ur Leukocyte Esterase Negative Urine RBC 0 SEEN Urine WBC 0 SEEN Ur Squamous Epith Cells 0 SEEN Urine Bacteria 0 SEEN Urine Mucus 0 SEEN Discharge Plan Triage Chief Complaint: Complaint ED Provider: Fredo Proctor Dx/Rx/DC Orders Clinical Impression: Acute urinary retention Instructions: ED Urinary Retention, Female Prescriptions: No Action famotidine 20 MG tablet 20 mg PO BID Qty: 28 RF: 0 clindamycin HCl 300 mg Capsule 300 mg PO Q8H RF: 0 Primary Care Provider: Lynn Davis Referrals: Yessi Blair DO [STAFF PHYSICIAN] - Lynn Davis PA [Primary Care Provider] - Disposition Disposition: Home, self care
[2021-02-07 09:43] LABS: Bacteria 0 SEEN /hpf (None Seen); Mucous, Urine 0 SEEN /hpf (<or=2+); Red Blood Cells-Urine 0 SEEN /hpf (0-5); Squamous Epithelial Cells - UA 0 SEEN /hpf (5-10); White Blood Cells 0 SEEN /hpf (0-5)
[2021-02-07 09:44] LABS: Color, Urine Yellow (Yellow); Glucose, Dipstick Normal (Normal); Ketone-Dipstick Negative (Negative); Leukocyte Esterase-Dipstick Negative /ul (Negative); Nitrite-Dipstick Negative (Negative); Occult Blood-Urine Negative /ul (Negative); Protein-Dipstick Negative (Negative); Urine Bilirubin Dipstick Negative (Negative); Urine Clarity Clear (Clear); Urine Urobilinogen Normal (Normal)
[2021-02-07 10:56] VITALS: BP 141/74; PULSE 98; RESP 16; O2SAT 100
== END 2021-02-07 10:58 | disposition home or self-care (01) ==
PROVIDERS: Emergency Provider Emergency Medicine; PCP Physician Assistant Medical
DX: O26.892 Other specified pregnancy related conditions, second trimester (principal); R33.9 Retention of urine, unspecified; Z3A.17 17 weeks gestation of pregnancy
CPT/HCPCS: 51702; 81001; 99283

== ENCOUNTER → 2021-03-28 16:34 | Outpatient (CLI) | payer OTHER, SELFPAY ==
[2021-03-28 16:37] LABS: Mucous, Urine 0 SEEN /hpf (<or=2+); Red Blood Cells-Urine 0 SEEN /hpf (0-5); Squamous Epithelial Cells - UA 0 SEEN /hpf (5-10); White Blood Cells 0 SEEN /hpf (0-5)
[2021-03-28 17:04] LABS: Color, Urine Straw (Yellow); Glucose, Dipstick Normal (Normal); Ketone-Dipstick Negative (Negative); Leukocyte Esterase-Dipstick Negative /ul (Negative); Nitrite-Dipstick Negative (Negative); Occult Blood-Urine 10 /ul (Negative); Protein-Dipstick Negative (Negative); Specific Gravity, Urine 1.015 (1.002-1.030); Urine Bilirubin Dipstick Negative (Negative); Urine Clarity Clear (Clear); Urine Urobilinogen Normal (Normal)
[2021-03-28 17:21] LABS: Bacteria RARE /hpf (None Seen)
== END ==
PROVIDERS: PCP Physician Assistant Medical; Visit Provider Obstetrics & Gynecology
DX: O26.892 Other specified pregnancy related conditions, second trimester (principal); R30.0 Dysuria; R25.2 Cramp and spasm; Z3A.00 Weeks of gestation of pregnancy not specified
CPT/HCPCS: 81001; 87086; 87088

== ENCOUNTER 2021-05-12 19:45 | Outpatient (CLI) | payer OTHER, SELFPAY ==
[2021-05-12 20:09] VITALS: BP 136/63; PULSE 106; TEMP 37.3
[2021-05-12 20:14] VITALS: BMI 48.2
--- NOTE | 2021-05-13 09:14 | OB.TRI.NOTE ---
HPI - General HPI Narrative CHUCKY SALGADO, is a 25 F who presents to labor and delivery at 30+ weeks gestation due to decreased movement. At work early in the day she had a cage door hit her in the abdomen and she was concerned that this may have caused the decreased movement. She denies any vaginal bleeding or leaking of fluid and is having very minimal contractions. PFSH PFSH Medical History Spontaneous Home Medications famotidine 20 mg PO BID #28 tab 06/19/20 [Rx Last Taken Unknown] clindamycin HCl 300 mg PO Q8H 01/31/21 [History Last Taken Unknown] Allergy/AdvReac Type Severity Reaction Status Date / Time No Known Allergies Allergy Verified 05/12/21 20:15 Social History household members: significant other Smoking Status: Never smoker alcohol intake: never substance use type: does not use NST FHR Rate Baby A NST Reactive:: Yes FHR Category:: Category I Assessment & Plan (1) Decreased movement: PLAN: 30+ week intrauterine with decreased movement. Reactive nonstress test. No evidence of trauma. Maternal blood type is a positive. Home-going instructions given. Continue present appointment schedule in the office.
== END 2021-05-12 20:45 | disposition home or self-care (01) ==
LOC: WPOUT 19:50 → WP 19:51
PROVIDERS: PCP Physician Assistant Medical; Visit Provider Obstetrics & Gynecology
DX: O36.8190 Decreased fetal movements, unspecified trimester, not applicable or unspecified (principal); Z3A.30 30 weeks gestation of pregnancy
CPT/HCPCS: 59025; 59050; 99218; G0378

== ENCOUNTER 2021-05-26 16:40 | Outpatient (CLI) | payer OTHER, SELFPAY ==
[2021-05-26 17:20] VITALS: TEMP 36.7; O2SAT 98
[2021-05-26 17:21] VITALS: BP 141/66; PULSE 97
[2021-05-26 17:40] VITALS: BMI 48.6
[2021-05-26 18:04] LABS: ROM Internal Control Test YES-OK TO RESULT pt. (Internal QC); ROM Patient Test Negative (Negative)
--- NOTE | 2021-05-26 20:00 | OB.TRI.HP_ITS ---
HPI - General HPI Narrative CHUCKY SALGADO, is a 25 F who presents with c/o leaking of fluid at 31 2/7wga [facility] Medical History Spontaneous Home Medications ferrous sulfate [iron] 325 mg PO DAILY 05/26/21 [History Last Taken 06/22/21 06:00] vit-iron fum-folic ac [ Fa] 1 tab PO DAILY 05/26/21 [History Last Taken 06/22/21 06:00] famotidine 20 mg PO BID 06/22/21 [History Last Taken 06/22/21 06:00] Allergy/AdvReac Type Severity Reaction Status Date / Time No Known Allergies Allergy Verified 05/26/21 17:42 Social History household members: significant other Smoking Status: Never smoker alcohol intake: never substance use type: does not use NST FHR Rate Baby A Baseline: 135 Variability:: Moderate Accelerations:: None and 15 x 15 Decelerations:: None NST Reactive:: Yes FHR Category:: Category I Uterine Activity:: 0/10 Assessment & Plan (1) : QUALIFIERS: Weeks of gestation: 32 weeks Qualified Code(s): Z3A.32 - 32 weeks gestation of PLAN: ROM plus neg No labor d/c home
== END 2021-05-26 18:43 | disposition home or self-care (01) ==
LOC: WPOUT 16:53 → WP 16:53
PROVIDERS: Visit Provider Obstetrics & Gynecology
DX: Z34.83 Encounter for supervision of other normal pregnancy, third trimester (principal); Z3A.32 32 weeks gestation of pregnancy
CPT/HCPCS: 59025; 59050; 84112; 99218; G0378

== ENCOUNTER 2021-06-07 14:20 | Outpatient (CLI) | payer OTHER, SELFPAY ==
[2021-06-07] VITALS (7 sets, daily range): BP systolic 121–149; BP diastolic 57–73; PULSE 89–97; TEMP 36.3–36.8; O2SAT 99–100; BMI 49.1
[2021-06-07 15:13] LABS: ROM Internal Control Test YES-OK TO RESULT pt. (Internal QC); ROM Patient Test Negative (Negative)
[2021-06-07 16:29] LABS: Mucous, Urine 0 SEEN /hpf (<or=2+); Red Blood Cells-Urine 0 SEEN /hpf (0-5); White Blood Cells 0 SEEN /hpf (0-5)
[2021-06-07 16:38] LABS: Color, Urine Straw (Yellow); Glucose, Dipstick Normal (Normal); Ketone-Dipstick Negative (Negative); Leukocyte Esterase-Dipstick Negative /ul (Negative); Nitrite-Dipstick Negative (Negative); Occult Blood-Urine 10 /ul (Negative); Protein-Dipstick Negative (Negative); Urine Bilirubin Dipstick Negative (Negative); Urine Clarity Clear (Clear); Urine Urobilinogen Normal (Normal)
[2021-06-07 16:48] LABS: Bacteria 1+ /hpf (None Seen); Squamous Epithelial Cells - UA 0-5 SEEN /hpf (5-10)
--- NOTE | 2021-06-07 20:30 | OB.TRI.NOTE ---
HPI - General HPI Narrative CHUCKY SALGADO, is a 25 F who presents at 34 weeks gestation with c/o leaking of fluid. PFSH PFSH Medical History Spontaneous Home Medications ferrous sulfate [iron] 325 mg PO DAILY 05/26/21 [History Last Taken 06/22/21 06:00] vit-iron fum-folic ac [ Fa] 1 tab PO DAILY 05/26/21 [History Last Taken 06/22/21 06:00] famotidine 20 mg PO BID 06/22/21 [History Last Taken 06/22/21 06:00] Allergy/AdvReac Type Severity Reaction Status Date / Time No Known Allergies Allergy Verified 05/26/21 17:42 Social History household members: significant other Smoking Status: Never smoker alcohol intake: never substance use type: does not use NST FHR Rate Baby A Baseline: 140 Variability:: Moderate Accelerations:: 15 x 15 Decelerations:: None NST Reactive:: Yes FHR Category:: Category I Uterine Activity:: 0/10 Assessment & Plan (1) : QUALIFIERS: Weeks of gestation: 34 weeks Qualified Code(s): Z3A.34 - 34 weeks gestation of PLAN: U/A neg ROM plus negative False labor d/c home
== END 2021-06-07 17:20 | disposition home or self-care (01) ==
LOC: WPOUT 14:27 → WP 14:27
PROVIDERS: Referring Provider Obstetrics & Gynecology; Visit Provider Obstetrics & Gynecology
DX: O47.03 False labor before 37 completed weeks of gestation, third trimester (principal); Z3A.34 34 weeks gestation of pregnancy
CPT/HCPCS: 59025; 59050; 81001; 84112; 87086; 87088; 99218; G0378

== ENCOUNTER 2021-06-22 08:30 | Outpatient (CLI) | payer OTHER, SELFPAY ==
[2021-06-22 09:12] VITALS: BP 139/76; PULSE 95
[2021-06-22 09:20] VITALS: BMI 48.9
--- NOTE | 2021-06-22 18:08 | OB.TRI.NOTE ---
HPI - General HPI Narrative CHUCKY SALGADO, is a 25 F who presents to labor and delivery at 36+ weeks gestation with some contractions. She is concerned that she has in labor. PFSH PFSH Medical History Spontaneous Home Medications ferrous sulfate [iron] 325 mg PO DAILY 05/26/21 [History Last Taken 06/22/21 06:00] vit-iron fum-folic ac [ Fa] 1 tab PO DAILY 05/26/21 [History Last Taken 06/22/21 06:00] famotidine 20 mg PO BID 06/22/21 [History Last Taken 06/22/21 06:00] Allergy/AdvReac Type Severity Reaction Status Date / Time No Known Allergies Allergy Verified 05/26/21 17:42 Social History household members: significant other Smoking Status: Never smoker alcohol intake: never substance use type: does not use NST FHR Rate Baby A NST Reactive:: Yes FHR Category:: Category I Uterine Activity:: Minimal activity noted Assessment & Plan (1) False labor, antepartum: PLAN: 36+ week intrauterine with some false labor. No change of cervix after monitoring. Reactive nonstress test. There was a small deceleration noted and biophysical is to be done in the office today. Labor instructions given.
== END 2021-06-22 10:15 | disposition home or self-care (01) ==
LOC: WPOUT 08:34 → WP 08:35
PROVIDERS: Referring Provider Obstetrics & Gynecology; Visit Provider Obstetrics & Gynecology
DX: O47.03 False labor before 37 completed weeks of gestation, third trimester (principal); Z3A.36 36 weeks gestation of pregnancy
CPT/HCPCS: 59025; 59050; 99218; G0378

== ENCOUNTER 2021-07-04 09:25 | Outpatient (CLI) | payer OTHER, SELFPAY ==
[2021-07-04 09:37] VITALS: BMI 49.5
[2021-07-04 09:53] VITALS: BP 135/72; PULSE 100; TEMP 36.6; O2SAT 98
[2021-07-04 09:54] VITALS: PULSE 94; O2SAT 97
[2021-07-04 10:16] LABS: ROM Internal Control Test YES-OK TO RESULT pt. (Internal QC); ROM Patient Test Negative (Negative)
[2021-07-04 10:38] VITALS: BP 128/71; PULSE 86
[2021-07-04] MEDS: Acetaminophen 500 MG Tablet 1000 MG PO (10:46)
[2021-07-04 11:02] VITALS: BP 131/60; PULSE 87
[2021-07-04 11:39] VITALS: BP 130/74; PULSE 86
[2021-07-04 11:59] VITALS: BP 129/60; PULSE 86
[2021-07-04 13:46] LABS: Absolute Lymphocyte Count 1.78 X10^3/uL (0.83-4.51); Absolute Neutrophil Count 9.2 X10^3/uL (2.0-7.7); Basophil# 0.04 X10^3/uL; Basophil% 0.3 % (0-1); Eosinophil# 0.05 X10^3/uL; Eosinophils% 0.4 % (0-5); Hematocrit 36.8 % (37-47); Hemoglobin 12.1 g/dL (12.0-15.0); Lymphocyte # 1.78 X10^3/ul (0.83-4.51); Lymphocyte % 14.9 % (19-41); Mean Corp Hgb Conc 32.9 g/dL (32-36); Mean Corpuscular Hgb 28.3 pg (27.0-32.0); Mean Corpuscular Volume 86.2 fL (81-99); Mean Platelet Vol. 10.1 fl (6.2-12.0); Monocyte# 0.81 X10^3/uL; Monocyte% 6.8 % (0-10); NRBC Flagged by Analyzer 0 % (0-5); Neutrophil # 9.21 X10^3/uL (2.7-7.7); Neutrophil % 76.8 % (47-70); Platelet Count 232 K/mm3 (150-450); RBC Distribution Width CV 14.3 % (11.6-14.6); RBC Distribution Width SD 44.7 fl (35.1-43.9); Red Blood Count 4.27 M/mm3 (4.2-5.4)
[2021-07-04 13:52] LABS: Bacteria 0 SEEN /hpf (None Seen); Mucous, Urine 0 SEEN /hpf (<or=2+); White Blood Cells 0 SEEN /hpf (0-5)
[2021-07-04 14:03] LABS: Color, Urine Yellow (Yellow); Glucose, Dipstick Normal (Normal); Ketone-Dipstick Negative (Negative); Leukocyte Esterase-Dipstick Negative /ul (Negative); Nitrite-Dipstick Negative (Negative); Occult Blood-Urine 10 /ul (Negative); Protein-Dipstick Negative (Negative); Specific Gravity, Urine 1.015 (1.002-1.030); Urine Bilirubin Dipstick Negative (Negative); Urine Clarity Sl. Cloudy (Clear); Urine Urobilinogen Normal (Normal)
[2021-07-04 14:06] LABS: Protein, Urine (Random) < 6.0 mg/dL (<11.9); Protein:Creat Ratio 122 mg/g CRE (0-200)
[2021-07-04 14:07] LABS: ALB/GLOB Ratio 0.6 RATIO (0.9-2.4); AST(SGOT) 10 U/L (15-37); Alanine Aminotransfer ALT/SGPT 12 U/L (13-56); Albumin, Serum 2.5 g/dL (3.2-5.0); Alkaline Phosphatase 101 U/L (45-117); Anion Gap 8 (5-15); BUN 8 mg/dL (7-18); BUN/Creat Ratio 14.5 RATIO (10-20); Calcium,Total 8.9 mg/dL (8.5-10.1); Chloride 109 mmol/L (98-107); Creatinine, Serum 0.55 mg/dL (0.55-1.02); EST Glomerular Filtration Rate 143 mL/min (>60); Est Glom Filt Rate - Afr Amer 173 mL/min (>60); Estimated Creatinine Clearance 141.92 ml/min; Globulin 4.3 g/dL (2.2-4.2); Glucose 114 mg/dL (74-106); LDH 164 U/L (84-246); Potassium 3.6 mmol/L (3.5-5.1); Protein, Total 6.8 g/dL (6.4-8.2); Sodium Level 138 mmol/L (136-145)
[2021-07-04 14:09] LABS: Red Blood Cells-Urine 0-5 SEEN /hpf (0-5); Squamous Epithelial Cells - UA 0-5 SEEN /hpf (5-10)
[2021-07-04] MEDS: cycloBENZAPRine HCl 10 MG Tablet PO (14:11)
--- NOTE | 2021-07-05 16:13 | PCM.PN.BLA ---
Progress Note Patient presenting to rule out spontaneous rupture membranes. ROM negative. Patient also reporting headache, described as surrounding a tight band around the head. Reports vision changes that have been present for several weeks, related to prescription of glasses. Denies nausea, vomiting, chest pain, shortness of breath, right upper quadrant pain. Patient seen and examined by myself. Reflexes 2 out of 4, no clonus, no right upper quadrant tenderness. Cervix 1 cm. status reassuring, no regular contractions. Cervix unchanged after several hours. CBC, CMP, LDH, urine protein creatinine ratio are within normal limits. No evidence of labor or preeclampsia. Discharge home with follow-up this week.
== END 2021-07-04 15:39 | disposition home or self-care (01) ==
LOC: WPOUT 09:34 → WP 09:34
PROVIDERS: Referring Provider Student in an Organized Health Care Education/Training Program; Visit Provider Student in an Organized Health Care Education/Training Program
DX: O26.899 Other specified pregnancy related conditions, unspecified trimester (principal); R51.9 Headache, unspecified; Z3A.00 Weeks of gestation of pregnancy not specified
CPT/HCPCS: 59025; 59050; 80053; 81001; 82570; 83615; 84112; 84156; 85025; 99218; G0378

== ENCOUNTER 2021-07-07 06:55 | Inpatient (IN) | payer OTHER, SELFPAY ==
[2021-07-07] VITALS (8 sets, daily range): BP systolic 136–147; BP diastolic 66–85; PULSE 86–98; TEMP 36.4–37.2; O2SAT 100; BMI 49.8
[2021-07-07] MEDS: Lactated Ringers 1,000 ML 50 ML IV (07:55)
[2021-07-07 08:13] LABS: Absolute Lymphocyte Count 1.33 X10^3/uL (0.83-4.51); Absolute Neutrophil Count 9.5 X10^3/uL (2.0-7.7); Basophil# 0.03 X10^3/uL; Basophil% 0.3 % (0-1); Eosinophil# 0.07 X10^3/uL; Eosinophils% 0.6 % (0-5); Hemoglobin 12.6 g/dL (12.0-15.0); Lymphocyte # 1.33 X10^3/ul (0.83-4.51); Lymphocyte % 11.4 % (19-41); Mean Corp Hgb Conc 32.3 g/dL (32-36); Mean Corpuscular Hgb 28.1 pg (27.0-32.0); Mean Corpuscular Volume 87.1 fL (81-99); Mean Platelet Vol. 10.7 fl (6.2-12.0); Monocyte% 5.2 % (0-10); NRBC Flagged by Analyzer 0 % (0-5); Neutrophil # 9.51 X10^3/uL (2.7-7.7); Neutrophil % 81.6 % (47-70); Platelet Count 242 K/mm3 (150-450); RBC Distribution Width CV 14.1 % (11.6-14.6); Red Blood Count 4.48 M/mm3 (4.2-5.4); White Blood Count 11.6 K/mm3 (4.4-11.0)
[2021-07-07 08:20] LABS: Bedside Glucose 175 mg/dL (70-110)
[2021-07-07 08:28] LABS: ALB/GLOB Ratio 0.6 RATIO (0.9-2.4); AST(SGOT) 10 U/L (15-37); Alanine Aminotransfer ALT/SGPT 14 U/L (13-56); Albumin, Serum 2.6 g/dL (3.2-5.0); Alkaline Phosphatase 98 U/L (45-117); Anion Gap 11 (5-15); BUN 10 mg/dL (7-18); BUN/Creat Ratio 14.9 RATIO (10-20); Calcium,Total 9.2 mg/dL (8.5-10.1); Chloride 108 mmol/L (98-107); Creatinine, Serum 0.67 mg/dL (0.55-1.02); EST Glomerular Filtration Rate 114 mL/min (>60); Est Glom Filt Rate - Afr Amer 138 mL/min (>60); Globulin 4.1 g/dL (2.2-4.2); Glucose 198 mg/dL (74-106); LDH 144 U/L (84-246); Potassium 3.7 mmol/L (3.5-5.1); Protein, Total 6.7 g/dL (6.4-8.2); Sodium Level 139 mmol/L (136-145)
[2021-07-07] MEDS: miSOPROStol 25 MCG TABLET PO ×4 (08:38→22:11)
[2021-07-07 09:46] LABS: Bedside Glucose 113 mg/dL (70-110)
[2021-07-07 10:58] LABS: Bedside Glucose 81 mg/dL (70-110)
[2021-07-07] MEDS: Acetaminophen 500 MG Tablet PO ×2 (12:45→18:55)
[2021-07-07] MEDS: Mag Hydrox/Al Hydrox/Simeth 30 ML UDC PO ×2 (15:36→19:31)
[2021-07-07 15:46] LABS: Bedside Glucose 85 mg/dL (70-110)
[2021-07-07 17:25] LABS: Bedside Glucose 85 mg/dL (70-110)
[2021-07-07] MEDS: Ondansetron 4 MG/2 ML Vial IV (17:41)
[2021-07-07] MEDS: 0.9% Saline Lock 10 ML Syringe IV (17:41)
[2021-07-07 22:10] LABS: Bedside Glucose 102 mg/dL (70-110)
[2021-07-08] VITALS (44 sets, daily range): BP systolic 114–156; BP diastolic 55–88; PULSE 80–109; TEMP 36.1–37.2; O2SAT 94–100
[2021-07-08] MEDS: Acetaminophen 500 MG Tablet PO ×2 (01:01→15:47)
[2021-07-08] MEDS: Mag Hydrox/Al Hydrox/Simeth 30 ML UDC PO ×5 (01:01→20:24)
[2021-07-08] MEDS: Lactated Ringers 1,000 ML 50 ML IV (01:02)
[2021-07-08] MEDS: miSOPROStol 25 MCG TABLET PO (02:06)
[2021-07-08 02:15] LABS: Bedside Glucose 88 mg/dL (70-110)
[2021-07-08 06:55] LABS: Bedside Glucose 98 mg/dL (70-110)
[2021-07-08] MEDS: Ondansetron 4 MG/2 ML Vial IV ×2 (07:08→15:50)
[2021-07-08] MEDS: Oxytocin 30 units/NS 500 ml 30 UNITS/500 ML IV.SOLN IV (08:30)
--- NOTE | 2021-07-08 08:43 | HP.PCM_ITS ---
History and Physical Date of Admission: 07/07/21 ACOG ANTEPARTUM RECORD - HISTORY AND PHYSICAL (07/08/2021) Name: IVONE SALGADO History of this : This is a 25 year old [id number] presents at 38 wks + 2 days gestation for induction for uncontrolled blood sugars and gestational diabetes. Patient initially had a negative gestational diabetes screen but recent ultrasound showed edema of the scalp and repeat gestational diabetes screen was positive. Given this it was decided to proceed with induction. OB Physician: Gerard Mohan MD 's Physician: UNDECIDED ...................................................................... : 1995 Age: 25 Address: [address] [place] [address] [place] [address] Phone: H) [phone] (O) [phone] Insurance Carrier: VLADIMIR [id number] Emergency Contact: REYNALDO CEDEÑO [phone] ...................................................................... Final PABLO: 07/19/21 By Ultrasound: 6 weeks 6 days PARITY: (G-Total Pregnancies P-Fullterm,Premature,Induced AB,Spont AB, Ectopics, Multiple,Living) PABLO CONFIRMATION: By LMP: 09/30/20 Final PABLO: 07/19/21 OB PROBLEM LIST: and epidural planned; office chilbirth and classes enc. Declines genetic screening and carrier Past depression/anxiety with treatment Past hx of UTI's Presumed GDM noted 38+ weeks SO/FOB has a 5 year old son Tested positive for COVID mid-November 2020 ALLERGIES: No Known Allergies MEDICATIONS: cephalexin 500 mg tablet four times daily for 1 week nystatin-triamcinolone 100,000 unit/gram-0.1 % topical ointment Apply to affected area twice daily and massage for 2 minutes Pepcid 40 mg tablet Gummies 400 mcg-35 mg-25 mg-5 mg chewable tablet daily SOCIAL HISTORY: Smoking - Never Alcohol Use - denies drinking Diet - no special diet Lifestyle - moderate stress lifestyle and single Exercise - active work Employer - 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 Illicit Drug Use - None Sexual Activity - [employer] Residence - lives with boyfriend Place of - [place], [place] Hours Worked - 40 hours per week Spouse-Sig Other Name - Larry Plunkett Spouse-Sig Other Occupation - [employer] Spouse-Sig Other Phone No - [phone] PRIOR DELIVERY HISTORY DEL DATE GEST LAB WT LB WT OZ TYPE ANES LABOR TX 04 Nov 20 8 0 0 0 Sab General D+E ANTEPARTUM FLOW CHART VISIT GE RTC FU F F CT U U DATE WK MD WKS HT PN HR M SS BP ED WT CT GL D EF ST __ ____ ___ __ __ ___ __ __ __ ___ __ __ __ ___ __ 20 Jun 38 JMW 1 37 V + + 108/84 0 305 - - 1 75 -2 15 Oct 37 + + 112/56 sl 304 - - 13 Jun 37 JMW 1 37 V + + 134/70 1+ 305 - - ft 50 -2 08 Oct 36 CM 1 V + + 128/76 sl 299 - 3+ 06 Oct 36 JMW 1 36 V + + 130/86 sl 298 - - 29 Sep 35 JMW 1 35 + + 100/86 sl 298 - - 15 May 33 JMW 2 35 + + 134/76 sl 298 - - May 16 JMW 2 30 + + 126/80 sl 291 tr - 10 May 14 SHM 2 30 ? + + 138/76 sl 287 ne ne Apr 08 SHM 4 24 ? + + 134/80 sl 282 - - 14 Mar 05 JMW 4 20 + + 116/74 sl 274 - - January 31 JMW 3 17 + + 132/74 0 266 - - January 28 CM 4 +U ? 136/74 0 268 ne ne Dec 25 JM 4 10 - on 132/76 0 265 ne ne Nov 20 JM 4 6 - on 110/70 261 tr - ANTEPARTUM NOTE(S): Jul 06 2021: induce for uncontrlled GDM; BPP 04/24Jul 01 2021: Jun 29 2021: 1 hour PG today; GBS done; weekly NST Jun 24 2021: Jun 22 2021: BPP Today,Good FM for last 2 hrs, BPP 04/24Jun 15 2021: feeling lightheaded today and having hastings. AM Jun 01 2021: Feeling tired,occasional cramping May 11 2021: Low Backache,low pressure after working her shift Apr 26 2021: Mar 28 2021: see note Feb 28 2021: L ankle pain/edema, US OK Feb 09 2021: ER follow-up/[facility] Cath removed Jan 24 2021: Dec 27 2020: Nov 29 2020: see note COMPREHENSIVE ANTEPARTUM NOTE(S): Jul 06 2021: Ivone here for PNV. FM good. Edema check good. Still having nausea. CB Jul 06 2021: Ivone is here with her mother at 38.1 weeks for visit and NST for GDM. NST done w some difficulty due to body habitus. Nurse remained w her during entire time to maintain tracing by holding US. Ivone was LF for NST causing unexpected N& V. NST reactive per Dr BATES. Scheduled for cytotec induction for 07-07-21 at 0700 with pt to call [facility] at 0500. Understanding voiced. All induction papers Jul 01 2021: Ivone is here for a NST at 37 w 3 d. She states that she is doing well, but is tired and has been noticing increase in mild irregular cramping and BH ctx's. She has noted small amounts of ight brown spotting when she wipes since Sunday , when she had a vaginal exam. No red vaginal discharge. She denies LoF. Slight edema noted below knees and hands. She denies headaches/visual disturbances/epi Jun 29 2021: Ivone here PNV 37 weeks. FM good. Still having nausea. Has some concerns with vision issues for the past 2-3 weeks. She is sweating a lot. Slight edema from socks. CB Jun 24 2021: 36/3w. NST today for scalp and abdominal edema seen on US Sunday. REACTIVE. REpeat US done today - BPP 04/24. On US today scalp edema vs mass of right maxillary region/right face noted. Unable to determine if this is a mass vs. large cheek vs dependent scalp edema pooling due to position. Discussed with Dr. Roberto THIBODEAUX - [facility], prepare for weekend adm Jun 24 2021: Ivone is here for a NST at 36 w 3 d. She states familiarity with NST/EEFM . Ivone state she feels good FM. She denies spotting/LoF. She feels irregular cramping. Slight edema noted below knees. She spent some time in [facility] on 06/22/2021, and had a PNV and BPP that day as well in the office. She states that since Sunday, she has been nauseated, but is able to eat and drinks, she has not vo Jun 01 2021: Ivone presents here today for PNV and reports that she is tired from working the way she has to at work everyday. She wears multiple layers of PPE and has excessive sweating due to same and has a hard time hydrating with only two breaks and lunch(which she adds that she does not always get). Otherwise doing well. [place] May 26 2021: Ivone calling @ 32 wks 2 days w/concerns of possible leaking fluid, has changed a pantyliner 6 x today d/t being wet. Feeling more pelvic pressure, back pain. Good FM. No spotting. Discussion w/Dr. Raquel Obrien going to OB. Sent to OB for evaluation May 11 2021: Ivone presents here today with spouse for PNV. Reports that she has been having increased low backache/low abdominal pressure mainly noted after her 8 hour shift at work, as she does a lot of lifting, bending and w alking with her job. We had already provider her with a lifting restriction of 20-25 pounds earlier in this . Denies burning/pain with urination or other concerns at this time Apr 27 2021: Entry for 04/26/21: Pt also c/o external vaginal irritation. Exam performed, findings c/w yeast and associated dermatitis. Rx nystatin/TAC cream provided. US - EFW 1159g (38th%), heart and spine views seen and normal appearing Apr 26 2021: Ivone is here for PNV following US. Feeling well with good FM. Is having some problems with heartburn. Pepcid works only briefly but does help to drink milk. Also, having problems with constipation. Takes a Colace at HS. Has had to strain for BMs and is causing some bleeding when she wipes. Slight edema noted. States that is definitely a problem when she works as she is on her feet all d Apr 26 2021: A pos. Glucola, CBC today. Plan weekly monitoring at 34w given maternal BMI >40 per ACOG. Mar 28 2021: Ivone is being seen for PNV. Mother is with pt today. 23 weeks and 6 days. Pt states she is very tired and having sharp pains in lower back going down right leg. Pt also states she had cramping 03/26. AM Mar 28 2021: Urine dip shows trace blood. Sent to [facility] with pt being agreeable to this as [facility] already picked up labs today, has [employer] insurance. Urine sent for urinalysis and culture. LMT Mar 28 2021: Reports intermittent cramping over the weekend and dysuria. No cramping today. Prior hx UTI. Send U/A, Ucx today. PTL precautions reviewed. Discussed labor analgesia, epidural planned. Pt to take childbirth class soon. Feb 28 2021: Ivone is here for a PNV at 19 wks w/ mother. Good FM. Sl edema present in L ankle only. Pt states ankle is painful to touch, concerned about sl discoloration on L foot that has been present for 1 week. No other concerns expressed. Baby is a girl. MK Feb 09 2021: Ivone presents here today for PNV and ED follow-up from [facility] Catheter placed due to urinary retention and low back pain. Reports feeling better with not being at work this week, with all the walking and bending she does at work. 100 cc clear urine urine removed from catheter and urine sent for C and S to [facility]. 14 fr [facility] Catheter with 8 cc water in bulb removed, and catheter removed without Jan 24 2021: Ivone is here with SO for PNV. States she is not able to hydrate like she wants due to work. Still with some occasional N/V. Having c/o lower abd pain and cramping but no vag discharge or LOF. Urine neg/neg. LSS Jan 24 2021: 14/6w visit. Patient with many questions. Addressed cramping - reassurance provided occasional cramping is normal. If cramping worsens or becomes more consistent she is to notify office/provider. Back pain - recommend stretching and yoga, can try belly band for some support. Work concerns - discussed not being in the radiation area at work. Encouraged water intake, if not able at work every day to Dec 27 2020: Ivone is here for PNV. States that her N/V is manageable. Able to eat and take fluids. Does have some vomiting with vitamin. Is now taking it at night and cause less N/V. Discussed small freq meals all day rather than 3 larger meals. Keeping crackers at bedside. No complaints for today. Genetic packet given. Urine neg/neg. LSS Dec 27 2020: 10wk, PNP wnl. Pt given letter for light duty and hydration at work as work is not letting her hydrate. BONNIE Dec 03 2020: TELEHEALTH NOB VISIT, 40 MINUTE DURATION. Ivone is a 25 year old A1 with an PABLO of 07/19/2021, current GA is 7 w 3 d. She resides with SO/FOB, Larry Plunkett. Larry has a 5 year old son from a previous relationship, and he has his son every other weekend. Ivone states that they are happy about the . Ivone is currently staying at home from her job at [employer], as she REVIEW OF SYSTEMS: GENERAL - Denies fever, or chills SKIN - Denies rash, new skin lesions, or change in moles EYES - Denies blurred vision, or change in visual acuity EARS - Denies ear pain, or difficulty hearing NOSE - Denies nasal congestion, discharge, or bleeding MOUTH - Denies sore throat, or difficulty swallowing NECK - Denies pain or swelling RESPIRATORY - Denies shortness of breath, cough, wheezing CARDIOVASCULAR - Denies palpitations, chest pain, orthopnea, PND, peripheral edema, syncope or claudication GASTROINTESTINAL - Denies nausea, vomiting, diarrhea, constipation, Denies abdominal pain, melena and or bright red blood GENITOURINARY - Denies dysuria, frequency of urination, urgency, or hesitancy MUSCULOSKELETAL - Denies joint or muscle pain, or back pain NEUROLOGICAL - Denies localized numbness, weakness, or tingling PSYCHIATRIC - Denies depression, anxiety, substance abuse or suicide attempts ENDOCRINE - Denies heat or cold intolerance, weight loss or gain, increasing thirst HEMATO-IMMUNOLOGIC - Denies easy bruising, bleeding, oral ulcerations or recurrent infections GENETICS SCREENING: Age 35+ years: No Thalassemia: No Neural Tube Defect: No Down Syndrome: No KEYANA-SACHS: No Sickle Cell Disease: No Hemophilia: No Musc. Dystrophy: No Cystic Fibrosis: No-declines screening Isabelle Chorea: No Mental Retardation: No Fragile X: No Other genetic: No Other defects: No SABs/still births: No Drugs since LMP: No INFECTION HISTORY: High risk AIDS: No High risk Hepatitis: No Exposed to TB: No Exposed to Herpes: No Rash/viral illness since LMP: No History of STD: No MENSTRUAL HISTORY: *Menses Amount/Duration: 7 to 10 daysMenses Regularity: RegularFrequency: monthlyMenarche (Age Onset): 13* PAST SUMMARY: PARITY: 1. Total Pregnancies............ 2 2. Full Term Pregnancies........ 0 3. Premature.................... 0 4. Abortions - Induced.......... 0 5. Abortions - Spontaneous...... 1 6. Ectopics..................... 0 7. Multiple Births.............. 0 8. Living Children.............. 0 PAST #1: Date of :.................. 07/21/20 Gestation Weeks:................ 8 Length of labor(hours):......... 0 Sex:............................ Weight-lbs:............... 0 Weight-oz:................ 0 Type of Delivery:............... Sab Type of Anesthesia:............. General Place of Delivery:.............. [facility] Treatment of Labor?:.... D+E Comment: PHYSICAL EXAMINATION General Appearence: 25 yo female in no acute distress Vital Signs: AF, VSS Heart: RRR without rubs or gallops Lungs: CTA x 2 Breasts: deferred Abdomen: gravid Pelvis: Cervix: FT/50 Presentation: cephalic Station: -2 Fetus: Size: AGA Movement: present Heart: present LAB TEST(S) ORDERED SINCE:10/22/20 07/08/2021 BEDSIDE GLUCOSE 07/07/2021 TYPE AND SCREEN 07/07/2021 LDH 07/07/2021 COVID 19 AG RAPID (RN COLLECT) 07/07/2021 COMPREHENSIVE METABOLIC PROFIL 07/07/2021 CBC W/DIFF, AUTOMATED 07/07/2021 BEDSIDE GLUCOSE 07/04/2021 URINALYSIS, COMPLETE 07/04/2021 TEST CODE CHANGE 07/04/2021 STREP GP B CULTURE 07/04/2021 PROTEIN+CREATININE RATIO,URINE 07/04/2021 LDH 07/04/2021 GEST. DIABETES 1-HR SCREEN 07/04/2021 COMPREHENSIVE METABOLIC PROFIL 07/04/2021 CBC WITH DIFFERENTIAL/PLATELET 07/04/2021 CBC W/DIFF, AUTOMATED 07/04/2021 (ROM) RUPTURE OF MEMBRANES 06/09/2021 URINE CULTURE 06/07/2021 URINALYSIS, COMPLETE 06/07/2021 (ROM) RUPTURE OF MEMBRANES 05/26/2021 (ROM) RUPTURE OF MEMBRANES 04/27/2021 GEST. DIABETES 1-HR SCREEN 04/27/2021 CBC WITH DIFFERENTIAL/PLATELET 03/30/2021 URINE CULTURE 03/28/2021 URINALYSIS, COMPLETE 02/11/2021 URINE CULTURE, ROUTINE 12/01/2020 NTI URINE TUBE (SHIELDS) 12/01/2020 MICROSCOPIC EXAMINATION 12/01/2020 CBC/D/PLT+RPR+UA+RH+ABO+RUB... 11/25/2020 CHLAMYDIA/GC AMPLIFICATION == ==== Order Observation Description Value Ref_Range A* Site == ==== BEDSIDE GLUCOSE NOTE [facility] BEDSIDE GLUCOSE FINGERSTICK GLU 98 mg/dL 70-110 POCL MANAGEMENT OF PATIENT CARE PER NURSING PROTOCOL BEDSIDE GLUCOSE NOTE [facility] BEDSIDE GLUCOSE FINGERSTICK GLU 88 mg/dL 70-110 POCL MANAGEMENT OF PATIENT CARE PER NURSING PROTOCOL BEDSIDE GLUCOSE NOTE [facility] BEDSIDE GLUCOSE FINGERSTICK GLU 102 mg/dL 70-110 POCL MANAGEMENT OF PATIENT CARE PER NURSING PROTOCOL BEDSIDE GLUCOSE NOTE [facility] BEDSIDE GLUCOSE FINGERSTICK GLU 85 mg/dL 70-110 POCL MANAGEMENT OF PATIENT CARE PER NURSING PROTOCOL BEDSIDE GLUCOSE NOTE [facility] BEDSIDE GLUCOSE FINGERSTICK GLU 85 mg/dL 70-110 POCL MANAGEMENT OF PATIENT CARE PER NURSING PROTOCOL BEDSIDE GLUCOSE NOTE [facility] BEDSIDE GLUCOSE FINGERSTICK GLU 81 mg/dL 70-110 POCL MANAGEMENT OF PATIENT CARE PER NURSING PROTOCOL BEDSIDE GLUCOSE NOTE [facility] BEDSIDE GLUCOSE FINGERSTICK GLU 113 mg/dL 70-110 H POCL MANAGEMENT OF PATIENT CARE PER NURSING PROTOCOL BEDSIDE GLUCOSE NOTE [facility] BEDSIDE GLUCOSE FINGERSTICK GLU 175 mg/dL 70-110 H POCL MANAGEMENT OF PATIENT CARE PER NURSING PROTOCOL Labor [facility]~[address] [place], [address]~ TYPE AND SCRE AB SCREEN GEL NEGATIVE ML LDH NOTE [facility] LDH LDH 144 U/L 84-246 ML COMPREHENSIVE M NOTE [facility] COMPREHENSIVE M GLU 198 mg/dL 74-106 H ML Fasting Glucose result greater than or equal to 126 mg/dL suggests DIABETES MELLITUS per A.D.A. criteria. Please note revised GLUCOSE reference range effective 10/19/2017. COMPREHENSIVE M BUN 10 mg/dL 7-18 ML COMPREHENSIVE M CREAT,SERUM 0.67 mg/dL 0.55-1.02 ML The validity of the calculated GFR GFRAA in patients over 70 years has not been determined. Clinical correlation is essential. COMPREHENSIVE M EST GFR 114 mL/min >60 ML Non- GFR Calc COMPREHENSIVE M EST GFR - AA 138 mL/min >60 ML GFR Calc COMPREHENSIVE M ECRCL 116.50 ml/min ML COMPREHENSIVE M BUN/CRE 14.9 RATIO 10-20 ML COMPREHENSIVE M T PROT 6.7 g/dL 6.4-8.2 ML COMPREHENSIVE M ALB 2.6 g/dL 3.2-5.0 L ML COMPREHENSIVE M GLOB 4.1 g/dL 2.2-4.2 ML COMPREHENSIVE M A/G 0.6 RATIO 0.9-2.4 L ML COMPREHENSIVE M CA,TOTAL 9.2 mg/dL 8.5-10.1 ML COMPREHENSIVE M AST 10 U/L 15-37 L ML COMPREHENSIVE M ALK P 98 U/L 45-117 ML COMPREHENSIVE M ALT 14 U/L 13-56 ML COMPREHENSIVE M T BILI 0.20 mg/dL 0.20-1.00 ML For patients on eltrombopag therapy, use of Dimension [place] TBIL is not recommended. COMPREHENSIVE M NA 139 mmol/L 136-145 ML COMPREHENSIVE M POTASSIUM 3.7 mmol/L 3.5-5.1 ML COMPREHENSIVE M CL 108 mmol/L 98-107 H ML COMPREHENSIVE M CO2 20.0 mmol/L 21.0-32.0 L ML COMPREHENSIVE M GAP 11 5-15 ML COVID 19 AG RAP NOTE [facility] CBC W/DIFF, AUT NOTE [facility] CBC W/DIFF, AUT WBC 11.6 K/mm3 4.4-11.0 H ML CBC W/DIFF, AUT RBC 4.48 M/mm3 4.2-5.4 ML CBC W/DIFF, AUT HGB 12.6 g/dL 12.0-15.0 ML CBC W/DIFF, AUT HCT 39.0 37-47 ML CBC W/DIFF, AUT MCV 87.1 fL 81-99 ML CBC W/DIFF, AUT MCH 28.1 pg 27.0-32.0 ML CBC W/DIFF, AUT MCHC 32.3 g/dL 32-36 ML CBC W/DIFF, AUT RDW CV 14.1 11.6-14.6 ML CBC W/DIFF, AUT RDW SD 45.0 fl 35.1-43.9 H ML CBC W/DIFF, AUT PLT 242 K/mm3 150-450 ML CBC W/DIFF, AUT MPV 10.7 fl 6.2-12.0 ML CBC W/DIFF, AUT NEUT% 81.6 47-70 H ML CBC W/DIFF, AUT LY% 11.4 19-41 L ML CBC W/DIFF, AUT MONO% 5.2 0-10 ML CBC W/DIFF, AUT EO% 0.6 0-5 ML CBC W/DIFF, AUT BASO% 0.3 0-1 ML CBC W/DIFF, AUT IG% 0.900 0.0-0.9 ML IG% - Immature Granulocytes (promyelocytes, myelocytes and metamyelocytes) > 1% indicates that a LEFT SHIFT is Present. CBC W/DIFF, AUT ABSOLUTE NEUT 9.5 X10 3/uL 2.0-7.7 H ML CBC W/DIFF, AUT ABSOLUTE LYMPH 1.33 X10 3/uL 0.83-4.51 ML CBC W/DIFF, AUT NUCLEATED RBC 0 0-5 ML URINALYSIS, COM NOTE [facility] URINALYSIS, COM WBC 0 SEEN /hpf 0-5 ML URINALYSIS, COM RBC 0-5 SEEN /hpf 0-5 ML URINALYSIS, COM EPI,SQUAMOUS 0-5 SEEN /hpf 5-10 ML URINALYSIS, COM BACTERIA 0 SEEN /hpf None Seen ML URINALYSIS, COM MUCUS 0 SEEN /hpf <or=2+ ML PROTEIN+CREATIN NOTE [facility] PROTEIN+CREATIN UR CREAT 47.70 mg/dL NO RANGE EST. ML PROTEIN+CREATIN PROTEIN,UR.RAN. < 6.0 mg/dL <11.9 ML PROTEIN+CREATIN PROT:CRE RATIO 122 mg/g CRE 0-200 ML CBC W/DIFF, AUT NOTE [facility] CBC W/DIFF, AUT WBC 12.0 K/mm3 4.4-11.0 H ML CBC W/DIFF, AUT RBC 4.27 M/mm3 4.2-5.4 ML CBC W/DIFF, AUT HGB 12.1 g/dL 12.0-15.0 ML CBC W/DIFF, AUT HCT 36.8 37-47 L ML CBC W/DIFF, AUT MCV 86.2 fL 81-99 ML CBC W/DIFF, AUT MCH 28.3 pg 27.0-32.0 ML CBC W/DIFF, AUT MCHC 32.9 g/dL 32-36 ML CBC W/DIFF, AUT RDW CV 14.3 11.6-14.6 ML CBC W/DIFF, AUT RDW SD 44.7 fl 35.1-43.9 H ML CBC W/DIFF, AUT PLT 232 K/mm3 150-450 ML CBC W/DIFF, AUT MPV 10.1 fl 6.2-12.0 ML CBC W/DIFF, AUT NEUT% 76.8 47-70 H ML CBC W/DIFF, AUT LY% 14.9 19-41 L ML CBC W/DIFF, AUT MONO% 6.8 0-10 ML CBC W/DIFF, AUT EO% 0.4 0-5 ML CBC W/DIFF, AUT BASO% 0.3 0-1 ML CBC W/DIFF, AUT IG% 0.800 0.0-0.9 ML IG% - Immature Granulocytes (promyelocytes, myelocytes and metamyelocytes) > 1% indicates that a LEFT SHIFT is Present. CBC W/DIFF, AUT ABSOLUTE NEUT 9.2 X10 3/uL 2.0-7.7 H ML CBC W/DIFF, AUT ABSOLUTE LYMPH 1.78 X10 3/uL 0.83-4.51 ML CBC W/DIFF, AUT NUCLEATED RBC 0 0-5 ML LDH NOTE [facility] LDH LDH 164 U/L 84-246 ML COMPREHENSIVE M NOTE [facility] COMPREHENSIVE M GLU 114 mg/dL 74-106 H ML Fasting Glucose result from 100 to 125 mg/dL suggests IMPAIRED HOMEOSTASIS per A.D.A. criteria. Please note revised GLUCOSE reference range effective 10/19/2017. [facility] M BUN 8 mg/dL 7-18 ML COMPREHENSIVE M CREAT,SERUM 0.55 mg/dL 0.55-1.02 ML The validity of the calculated GFR GFRAA in patients over 70 years has not been determined. Clinical correlation is essential. [facility] M EST GFR 143 mL/min >60 ML Non- GFR Calc COMPREHENSIVE M EST GFR - AA 173 mL/min >60 ML GFR Calc COMPREHENSIVE M ECRCL 141.92 ml/min ML COMPREHENSIVE M BUN/CRE 14.5 RATIO 10-20 ML COMPREHENSIVE M T PROT 6.8 g/dL 6.4-8.2 ML COMPREHENSIVE M ALB 2.5 g/dL 3.2-5.0 L ML COMPREHENSIVE M GLOB 4.3 g/dL 2.2-4.2 H ML [facility] M A/G 0.6 RATIO 0.9-2.4 L ML COMPREHENSIVE M CA,TOTAL 8.9 mg/dL 8.5-10.1 ML COMPREHENSIVE M AST 10 U/L 15-37 L ML COMPREHENSIVE M ALK P 101 U/L 45-117 ML COMPREHENSIVE M ALT 12 U/L 13-56 L ML COMPREHENSIVE M T BILI 0.30 mg/dL 0.20-1.00 ML For patients on eltrombopag therapy, use of Dimension [place] TBIL is not recommended. COMPREHENSIVE M NA 138 mmol/L 136-145 ML COMPREHENSIVE M POTASSIUM 3.6 mmol/L 3.5-5.1 ML COMPREHENSIVE M CL 109 mmol/L 98-107 H ML COMPREHENSIVE M CO2 21.0 mmol/L 21.0-32.0 ML COMPREHENSIVE M GAP 8 5-15 ML (ROM) RUPTURE O NOTE [facility] (ROM) RUPTURE O ROM Negative Negative ML Amniotic fluid not present indicates No Rupture of Membranes at time of specimen collection. CBC WITH DIFFER WBC 12.4 x10E3/uL 3.4-10.8 H LC_CB CBC WITH DIFFER RBC 4.09 x10E6/uL 3.77-5.28 LC_CB CBC WITH DIFFER HEMOGLOBIN 11.9 g/dL 11.1-15.9 LC_CB CBC WITH DIFFER HEMATOCRIT 36.1 % 34.0-46.6 LC_CB CBC WITH DIFFER MCV 88 fL 79-97 LC_CB CBC WITH DIFFER MCH 29.1 pg 26.6-33.0 LC_CB CBC WITH DIFFER MCHC 33.0 g/dL 31.5-35.7 LC_CB CBC WITH DIFFER RDW 14.1 % 11.7-15.4 LC_CB CBC WITH DIFFER PLATELETS 243 x10E3/uL 150-450 LC_CB CBC WITH DIFFER NEUTROPHILS 80 % Not Estab. LC_CB CBC WITH DIFFER LYMPHS 13 % Not Estab. LC_CB CBC WITH DIFFER MONOCYTES 5 % Not Estab. LC_CB CBC WITH DIFFER EOS 1 % Not Estab. LC_CB CBC WITH DIFFER BASOS 0 % Not Estab. LC_CB CBC WITH DIFFER IMMATURE CELLS LC_CB CBC WITH DIFFER NEUTROPHILS (ABSOLUTE) 9.9 x10E3/uL 1.4-7.0 H LC_CB CBC WITH DIFFER LYMPHS (ABSOLUTE) 1.7 x10E3/uL 0.7-3.1 LC_CB CBC WITH DIFFER MONOCYTES(ABSOLUTE) 0.6 x10E3/uL 0.1-0.9 LC_CB CBC WITH DIFFER EOS (ABSOLUTE) 0.1 x10E3/uL 0.0-0.4 LC_CB CBC WITH DIFFER BASO (ABSOLUTE) 0.0 x10E3/uL 0.0-0.2 LC_CB CBC WITH DIFFER IMMATURE GRANULOCYTES 1 % Not Estab. LC_CB CBC WITH DIFFER IMMATURE GRANS (ABS) 0.1 x10E3/uL 0.0-0.1 LC_CB CBC WITH DIFFER NRBC LC_CB CBC WITH DIFFER HEMATOLOGY COMMENTS: LC_CB GEST. DIABETES GESTATIONAL DIABETES SCR 163 mg/dL 65-139 H LC_CB According to ADA, a glucose threshold of >139 mg/dL after 50-gram load identifies approximately 80% of women with gestational diabetes mellitus, while the sensitivity is further increased to approximately 90% by a threshold of >129 mg/dL. STREP GP B CULT STREP GP B CULTURE Negative Negative LC_CB Centers for Disease Control and Prevention (CDC) and [place] [employer] Gynec[employer] (ACOG) guidelines for prevention of group B streptococcal (GBS) disease specify co-collection of a vaginal and rectal swab specimen to maximize sensitivity of GBS detection. Per the CDC and ACOG, swabbing both the lower vagina and rectum substantially increases the yield of detection compared with sampling the vagina alone. . Penicillin G, ampicillin, or cefazolin are indicated for intrapartum prophylaxis of GBS colonization. Reflex susceptibility testing should be performed prior to use of clindamycin only on GBS isolates from penicillin-allergic women who are considered a high risk for anaphylaxis. Treatment with vancomycin without additional testing is warranted if resistance to clindamycin is noted. TEST CODE [place] TEST CODE CHANGE LC_CB Please note that the Microbiology test code was changed to reflect the specimen source or transport received. URINE CULTURE NOTE [facility] URINALYSIS, COM NOTE [facility] URINALYSIS, COM WBC 0 SEEN /hpf 0-5 ML URINALYSIS, COM RBC 0 SEEN /hpf 0-5 ML URINALYSIS, COM EPI,SQUAMOUS 0-5 SEEN /hpf 5-10 ML URINALYSIS, COM BACTERIA 1+ /hpf None Seen ML URINALYSIS, COM MUCUS 0 SEEN /hpf <or=2+ ML (ROM) RUPTURE O NOTE [facility] (ROM) RUPTURE O ROM Negative Negative ML Amniotic fluid not present indicates No Rupture of Membranes at time of specimen collection. (ROM) RUPTURE O NOTE [facility] (ROM) RUPTURE O ROM Negative Negative ML Amniotic fluid not present indicates No Rupture of Membranes at time of specimen collection. CBC WITH DIFFER WBC 11.4 x10E3/uL 3.4-10.8 H LC_CB CBC WITH DIFFER RBC 3.89 x10E6/uL 3.77-5.28 LC_CB CBC WITH DIFFER HEMOGLOBIN 11.4 g/dL 11.1-15.9 LC_CB CBC WITH DIFFER HEMATOCRIT 33.4 % 34.0-46.6 L LC_CB CBC WITH DIFFER MCV 86 fL 79-97 LC_CB CBC WITH DIFFER MCH 29.3 pg 26.6-33.0 LC_CB CBC WITH DIFFER MCHC 34.1 g/dL 31.5-35.7 LC_CB CBC WITH DIFFER RDW 13.0 % 11.7-15.4 LC_CB CBC WITH DIFFER PLATELETS 226 x10E3/uL 150-450 LC_CB CBC WITH DIFFER NEUTROPHILS 78 % Not Estab. LC_CB CBC WITH DIFFER LYMPHS 15 % Not Estab. LC_CB CBC WITH DIFFER MONOCYTES 5 % Not Estab. LC_CB CBC WITH DIFFER EOS 1 % Not Estab. LC_CB CBC WITH DIFFER BASOS 0 % Not Estab. LC_CB CBC WITH DIFFER IMMATURE CELLS LC_CB CBC WITH DIFFER NEUTROPHILS (ABSOLUTE) 8.9 x10E3/uL 1.4-7.0 H LC_CB CBC WITH DIFFER LYMPHS (ABSOLUTE) 1.7 x10E3/uL 0.7-3.1 LC_CB CBC WITH DIFFER MONOCYTES(ABSOLUTE) 0.6 x10E3/uL 0.1-0.9 LC_CB CBC WITH DIFFER EOS (ABSOLUTE) 0.1 x10E3/uL 0.0-0.4 LC_CB CBC WITH DIFFER BASO (ABSOLUTE) 0.0 x10E3/uL 0.0-0.2 LC_CB CBC WITH DIFFER IMMATURE GRANULOCYTES 1 % Not Estab. LC_CB CBC WITH DIFFER IMMATURE GRANS (ABS) 0.1 x10E3/uL 0.0-0.1 LC_CB CBC WITH DIFFER NRBC LC_CB CBC WITH DIFFER HEMATOLOGY COMMENTS: LC_CB GEST. DIABETES GESTATIONAL DIABETES SCR 126 mg/dL 65-139 LC_CB According to ADA, a glucose threshold of >139 mg/dL after 50-gram load identifies approximately 80% of women with gestational diabetes mellitus, while the sensitivity is further increased to approximately 90% by a threshold of >129 mg/dL. URINE CULTURE NOTE GORDON URINALYSIS, COM NOTE GORDON URINALYSIS, COM WBC 0 SEEN /hpf 0-5 ML URINALYSIS, COM RBC 0 SEEN /hpf 0-5 ML URINALYSIS, COM EPI,SQUAMOUS 0 SEEN /hpf 5-10 ML URINALYSIS, COM BACTERIA RARE /hpf None Seen ML URINALYSIS, COM MUCUS 0 SEEN /hpf <or=2+ ML URINE CULTURE, URINE CULTURE, ROUTINE Final report A LC_CB URINE CULTURE, RESULT 1 Escherichia coli A LC_CB Greater than 100,000 colony forming units per mL Cefazolin <=4 ug/mL Cefazolin with an KARIE <=16 predicts susceptibility to the oral agents cefaclor, cefdinir, cefpodoxime, cefprozil, cefuroxime, cephalexin, and loracarbef when used for therapy of uncomplicated urinary tract infections due to E. coli, Klebsiella pneumoniae, and Proteus mirabilis. URINE CULTURE, ANTIMICROBIAL SUSCEPTIBI LC_CB S = Susceptible; I = Intermediate; R = Resistant P = Positive; N = Negative MICS are expressed in micrograms per mL Antibiotic RSLT#1 RSLT#2 RSLT#3 RSLT#4 Amoxicillin/Clavulanic Acid S Ampicillin S Cefepime S Ceftriaxone S Cefuroxime S Ciprofloxacin S Ertapenem S Gentamicin S Imipenem S Levofloxacin S Meropenem S Nitrofurantoin S Piperacillin/Tazobactam S Tetracycline R Tobramycin S Trimethoprim/Sulfa S CBC/D/PLT+RPR+U TSH 0.619 uIU/mL 0.450-4.500 LC_CB CBC/D/PLT+RPR+U HBSAG SCREEN Negative Negative LC_CB CBC/D/PLT+RPR+U RPR Non Reactive Non Reactive LC_CB CBC/D/PLT+RPR+U RUBELLA ANTIBODIES, IGG 1.33 index Immune >0.99 LC_CB Non-immune <0.90 Equivocal 0.90 - 0.99 Immune >0.99 CBC/D/PLT+RPR+U ABO GROUPING A LC_CB CBC/D/PLT+RPR+U RH FACTOR Positive LC_CB Please note: Prior records for this patient's ABO / Rh type are not available for additional verification. CBC/D/PLT+RPR+U ANTIBODY SCREEN Negative Negative LC_CB CBC/D/PLT+RPR+U HIV SCREEN 4TH GENERATIO Non Reactive Non Reactive LC_CB CBC/D/PLT+RPR+U WBC 7.6 x10E3/uL 3.4-10.8 LC_CB CBC/D/PLT+RPR+U RBC 4.43 x10E6/uL 3.77-5.28 LC_CB CBC/D/PLT+RPR+U HEMOGLOBIN 12.9 g/dL 11.1-15.9 LC_CB CBC/D/PLT+RPR+U HEMATOCRIT 39.0 % 34.0-46.6 LC_CB CBC/D/PLT+RPR+U MCV 88 fL 79-97 LC_CB CBC/D/PLT+RPR+U MCH 29.1 pg 26.6-33.0 LC_CB CBC/D/PLT+RPR+U MCHC 33.1 g/dL 31.5-35.7 LC_CB CBC/D/PLT+RPR+U RDW 13.2 % 11.7-15.4 LC_CB CBC/D/PLT+RPR+U PLATELETS 276 x10E3/uL 150-450 LC_CB CBC/D/PLT+RPR+U NEUTROPHILS 70 % Not Estab. LC_CB CBC/D/PLT+RPR+U LYMPHS 22 % Not Estab. LC_CB CBC/D/PLT+RPR+U MONOCYTES 6 % Not Estab. LC_CB CBC/D/PLT+RPR+U EOS 1 % Not Estab. LC_CB CBC/D/PLT+RPR+U BASOS 0 % Not Estab. LC_CB CBC/D/PLT+RPR+U IMMATURE CELLS LC_CB CBC/D/PLT+RPR+U NEUTROPHILS (ABSOLUTE) 5.4 x10E3/uL 1.4-7.0 LC_CB CBC/D/PLT+RPR+U LYMPHS (ABSOLUTE) 1.7 x10E3/uL 0.7-3.1 LC_CB CBC/D/PLT+RPR+U MONOCYTES(ABSOLUTE) 0.5 x10E3/uL 0.1-0.9 LC_CB CBC/D/PLT+RPR+U EOS (ABSOLUTE) 0.1 x10E3/uL 0.0-0.4 LC_CB CBC/D/PLT+RPR+U BASO (ABSOLUTE) 0.0 x10E3/uL 0.0-0.2 LC_CB CBC/D/PLT+RPR+U IMMATURE GRANULOCYTES 1 % Not Estab. LC_CB CBC/D/PLT+RPR+U IMMATURE GRANS (ABS) 0.0 x10E3/uL 0.0-0.1 LC_CB CBC/D/PLT+RPR+U NRBC LC_CB CBC/D/PLT+RPR+U HEMATOLOGY COMMENTS: LC_CB CBC/D/PLT+RPR+U SPECIFIC GRAVITY 1.008 1.005-1.030 LC_CB CBC/D/PLT+RPR+U PH 7.0 5.0-7.5 LC_CB CBC/D/PLT+RPR+U URINE-COLOR Yellow Yellow LC_CB CBC/D/PLT+RPR+U APPEARANCE Clear Clear LC_CB CBC/D/PLT+RPR+U WBC ESTERASE Trace Negative A LC_CB CBC/D/PLT+RPR+U PROTEIN Negative Negative/Trace LC_CB CBC/D/PLT+RPR+U GLUCOSE Negative Negative LC_CB CBC/D/PLT+RPR+U KETONES Negative Negative LC_CB CBC/D/PLT+RPR+U OCCULT BLOOD Negative Negative LC_CB CBC/D/PLT+RPR+U BILIRUBIN Negative Negative LC_CB CBC/D/PLT+RPR+U UROBILINOGEN,SEMI-QN 0.2 mg/dL 0.2-1.0 LC_CB CBC/D/PLT+RPR+U NITRITE, URINE Negative Negative LC_CB CBC/D/PLT+RPR+U MICROSCOPIC EXAMINATION See below: LC_CB Microscopic was indicated and was performed. MICROSCOPIC EXA WBC 0-5 /hpf 0 - 5 LC_CB MICROSCOPIC EXA RBC None seen /hpf 0 - 2 LC_CB MICROSCOPIC EXA EPITHELIAL CELLS (NON RE 0-10 /hpf 0 - 10 LC_CB MICROSCOPIC EXA EPITHELIAL CELLS (RENAL) LC_CB MICROSCOPIC EXA CASTS LC_CB MICROSCOPIC EXA CAST TYPE LC_CB MICROSCOPIC EXA CRYSTALS LC_CB MICROSCOPIC EXA CRYSTAL TYPE LC_CB MICROSCOPIC EXA MUCUS THREADS Present Not Estab. LC_CB MICROSCOPIC EXA BACTERIA Few None seen/Few LC_CB MICROSCOPIC EXA YEAST LC_CB MICROSCOPIC EXA TRICHOMONAS LC_CB NTI URINE TUBE NTI URINE TUBE (SHIELDS) LC_CB . A urine culture transport was received with no test indicated. If testing is required on this specimen, please contact the [facility] Client Inquiry/Technical Services Department to obtain a Request for Written Authorization Form. CHLAMYDIA/GC AM CHLAMYDIA TRACHOMATIS, N Negative Negative LC_=G CHLAMYDIA/GC AM NEISSERIA GONORRHOEAE, N Negative Negative LC_=G == ==== Impression /Plan: 38 wks + 3 days intrauterine for Cytotec induction. Preparations in progress for delivery.
[2021-07-08] MEDS: Lactated Ringers 500 ML 999 ML IV (09:48)
[2021-07-08 10:31] LABS: Bedside Glucose 85 mg/dL (70-110)
[2021-07-08] MEDS: fentaNYL-bupivacaine (epidural) 100 ML BAG EPIDURAL ×3 (10:47→20:26)
[2021-07-08 12:59] LABS: Hepatitis C Antibody Non-Reactive (Nonreactive)
[2021-07-08] MEDS: Lactated Ringers 1,000 ML 200 ML IV ×3 (13:46→23:21)
[2021-07-08 15:15] LABS: Bedside Glucose 68 mg/dL (70-110)
[2021-07-08 18:41] LABS: Bedside Glucose 80 mg/dL (70-110)
[2021-07-08] MEDS: 0.9% Saline Lock 10 ML Syringe IV (20:24)
[2021-07-08 22:35] LABS: Bedside Glucose 79 mg/dL (70-110)
[2021-07-09] VITALS (34 sets, daily range): BP systolic 85–147; BP diastolic 34–76; PULSE 94–147; RESP 16–18; TEMP 36.1–38.4; O2SAT 16–100
[2021-07-09] MEDS: fentaNYL-bupivacaine (epidural) 100 ML BAG EPIDURAL ×2 (00:47→05:52)
[2021-07-09] MEDS: Lactated Ringers 500 ML 999 ML IV ×2 (00:48→14:31)
[2021-07-09 02:01] LABS: Bedside Glucose 79 mg/dL (70-110)
--- NOTE | 2021-07-09 02:08 | PCM.PN.OB ---
Subjective Subjective Patient has progressed to approximately 5 to 6 cm and 75% effaced but still -2 station. Pitocin at 20 throughout the day after rupture of membranes at approximately 08 30. Penicillin prophylaxis started late last evening when it became apparent delivery was not eminent soon. Given increasing maternal fatigue and Pitocin at 20 units throughout the day it was decided to stop the Pitocin during the night and restart at 5 AM. At present heart tones are reassuring but in the 1 60-1 65 range. Patient is sleeping comfortably now. If no progress will need to consider . Objective Data Objective Data Vital Signs: Vital Signs Temp Pulse BP Pulse Ox 99.1 F 107 H 138/64 H 98 07/09/21 01:55 07/09/21 01:55 07/09/21 01:55 07/09/21 01:55 Weight: 299 lb 13.259 oz Body Mass Index (BMI) 49.8 Intake & Output: Intake and Output for Last 24 Hours 07/07/21 07/08/21 07/09/21 23:59 23:59 23:59 Intake Total 7016.99 / 7016.99 635 / 635 Output Total 1000 / 1000 Balance 6016.99 / 6016.99 635 / 635 Lab / Micro Data Result Diagrams: 07/07/21 07:55 07/07/21 07:55 Labs: Laboratory Results - last 24 hr 07/07/21 15:30: Hepatitis C Antibody Non-Reactive 07/08/21 01:59: POC Glucose 88 07/08/21 06:31: POC Glucose 98 07/08/21 10:22: POC Glucose 85 07/08/21 14:49: POC Glucose 68 L 07/08/21 18:26: POC Glucose 80 07/08/21 22:27: POC Glucose 79 07/09/21 01:57: POC Glucose 79 Micro: Microbiology 07/07/21 07:55 Nasal Secretion SARS-CoV-2 Antigen (Rapid) - Final
[2021-07-09] MEDS: Penicillin G 3,000,000 Units 50 ML 100 UNITS IV ×2 (03:28→08:41)
[2021-07-09] MEDS: Ondansetron 4 MG/2 ML Vial IV ×3 (03:58→18:43)
[2021-07-09] MEDS: 0.9% Saline Lock 10 ML Syringe IV (03:58)
[2021-07-09] MEDS: Mag Hydrox/Al Hydrox/Simeth 30 ML UDC PO ×2 (04:08→09:16)
[2021-07-09] MEDS: Lactated Ringers 1,000 ML 200 ML IV ×3 (04:49→21:13)
[2021-07-09 07:10] LABS: Bedside Glucose 113 mg/dL (70-110)
[2021-07-09] MEDS: Acetaminophen 500 MG Tablet PO (08:13)
[2021-07-09 10:15] LABS: Bedside Glucose 127 mg/dL (70-110)
--- NOTE | 2021-07-09 10:29 | PN.OBGYN_ITS ---
Subjective Subjective Patient has progressed to 7 cm but still at -2 station. Now with occasional late decelerations and maternal fever of 101. Given no prospect of delivery soon with failure to descend will proceed with section for failure to progress and increasing stress. Patient and family agree. Discussed risks, bene fits, alternatives of procedure and all questions were answered. Objective Data Objective Data Vital Signs: Vital Signs Temp Pulse Resp BP Pulse Ox 97.9 F 136 H 16 147/64 H 100 07/09/21 10:10 07/09/21 10:10 07/09/21 10:10 07/09/21 10:10 07/09/21 10:10 Oxygen Delivery Method Room Air Weight: 299 lb 13.259 oz Body Mass Index (BMI) 49.8 Intake & Output: Intake and Output for Last 24 Hours 07/07/21 07/08/21 07/09/21 23:59 23:59 23:59 Intake Total 7016.99 / 7016.99 3034.53 / 3034.53 Output Total 1000 / 1000 600 / 600 Balance 6016.99 / 6016.99 2434.53 / 2434.53 Lab / Micro Data Result Diagrams: 07/07/21 07:55 07/07/21 07:55 Labs: Laboratory Results - last 24 hr 07/07/21 15:30: Hepatitis C Antibody Non-Reactive 07/08/21 10:22: POC Glucose 85 07/08/21 14:49: POC Glucose 68 L 07/08/21 18:26: POC Glucose 80 07/08/21 22:27: POC Glucose 79 07/09/21 01:57: POC Glucose 79 07/09/21 06:54: POC Glucose 113 H 07/09/21 10:03: POC Glucose 127 H Micro: Microbiology 07/07/21 07:55 Nasal Secretion SARS-CoV-2 Antigen (Rapid) - Final
[2021-07-09] MEDS: Methylergonovine 0.2 MG/ML Ampul IM (10:55)
--- NOTE | 2021-07-09 11:34 | EX.PCM.OBRPT ---
Assessment & Plan (1) Acute post-operative pain: Maternal Data Information Final PABLO: 07/19/21 Final PABLO Source: US <20 weeks Gestational age: 38w 4d [place] Doctor Who Attended Delivery: Axel Betts Details Operative Information Date of Procedure: 07/09/21 Pre-Operative Diagnosis: Failure to Progress, Increasing Stress, Gestational Diabetes Post-Operative Diagnosis: Failure to Progress, Increasing Stress, Gestational Diabetes Indications for : Arrrest of Descent, Nonreassuring Status and Isolated Maternal Fever Classification: GET Procedure Type: low transverse sales director #1: Claudine Toro Type of Anesthesia: Epidural Anesthesiologist: Talon Howard Antibiotic Given: Ancef 3 grams IV x1 and Zithromax 500 mg/5 mL X1 Drain: Noble to straight drain Estimated Blood Loss: 750 cc Fluids Replaced: Crystalloid Findings Description of Procedure: Surgeon: Gerard Mohan MD, FACOG Indication: This is a 25-year-old who presented for induction for gestational diabetes with kak-ay-epcwbid blood sugars. Baby was also noted to have edematous scalp on ultrasound recently. Given this it was decided to proceed with the Cytotec and rupture of membranes induction which started 2 days ago. Rupture of membranes was completed approximately 26 hours ago. Patient slowly progressed to 7 cm but station did not progress past -2 station. Further, there was increasing issues with occasional late deceleration and very recently maternal temperature was 101 ?F. The patient has been counseled regarding the risk and indications of this procedure including the possibility of bleeding infection and injury to surrounding structures such as bowel bladder. All questions were answered. Procedure: Patient was taken to the operating room where after spinal anesthesia was placed, the patient was prepped and draped in usual sterile fashion and a Noble catheter was placed. The abdomen was entered through a Pfannenstiel incision and peritoneum was entered bluntly. After developing a bladder flap on the lower uterine segment a low transverse incision was made on the uterus and head was easily delivered onto the operative field the nose mouth and oropharynx were bulb suctioned. Subsequently a viable female infant was born with Apgars of 4/6/8. The infant was noted to cry move all extremities vigorously on the operative field. The umbilical cord was doubly clamped and ligated and handed to the nursery personnel who were present for the delivery. Placenta was meconium-stained and delivered and noted to be 3 vessels and normal otherwise. Uterus was exteriorized and remaining placental tissue was removed. The uterus was then closed in 2 layers first with running locked 0 Vicryl suture followed by a second imbricating layer with 0 Vicryl suture. 0 Vicryl suture was then used in a horizontal mattress interrupted fashion to affect final hemostasis of the uterine incision line. Normal fallopian tubes and ovaries were visualized and the uterus was returned to the pelvis. Hemostasis was noted and rectus abdominis muscles were reapproximated in the midline with interrupted Number 0 Vicryl suture in a horizontal mattress fashion. Fascia was closed with running Number 1 PDS Strata fix suture. Subcutaneous tissue was irrigated with copious amounts of saline solution and then closed in 2 layers with running 3-0 Vicryl suture. Skin was closed with 4-0 monocryl suture in a running subcuticular fashion. Steri strips and a Mepilex dressing were placed across the incision. The patient tolerated the procedure well and was taken to the recovery room in satisfactory condition. Sponge, needle, and instrument counts were all reportedly correct. EBL was 750 cc. Ancef 3 gms and azithromycin IV were given prior to the procedure. Spicemen to Pathology: Meconium stained placenta to be sent with transport team Complications: None Presentation: Positive for Vertex Amniotic Membrane Rupture Type: Artificial Amniotic Fluid Description: Moderate meconium Placental Delivery Description: Spontaneous Placenta Disposition: Sent with transport team Specimen(s) Sent to Pathology: None Cord Vessel Description: 3 Vessels Cord Entanglement: Around neck x 1, loose Cord Gases: ABG and VBG Infant A Gender: Female (1 minute): 4 (5 minute): 6 ( 8 at 10 minutes) Complications Risks of Surgery Discussed w/Patient: Bleeding, Infection and Injury to surrounding structure(s) including bowel and bladder Complications: None
--- NOTE | 2021-07-09 11:44 | PCM.DC ---
Discharge Instructions Diet Discharge Diet: No restrictions Activity May resume sexual activity in: 4-6 weeks Lifting Restrictions: 20 pounds Dressing / Incision Call your doctor if your incision/area has: Continuous Slow Oozing, Sudden Increased Bleeding, Increased Pain/ Swelling, Increased Redness and Foul Smelling Discharge Call your doctor if you observe: Fever of 101 or Higher, Inability to urinate, Inability to have a bowel movement and Using more than 1 pad per hour Follow Up Care Please Follow Up With: Gerard Mohan MD When: Call [phone] for appointment to be seen in 2 weeks. Test Results: Test results from this visit will be discussed in further detail at your follow-up appointment, if applicable. Discharge Plan Admission Admit Date/Time: 07/07/21 06:55 Primary Reason for Your Visit: Obstetrical Delivery Attending Provider: Daren Blair Primary Care Provider: Care Physician,Wendy Primary Discharge Orders/Prescriptions Prescriptions: New oxycodone 5 mg capsule 5 mg PO Q6H PRN (Reason: pain) 7 Days Qty: 14 RF: 0 docusate sodium 100 mg tablet 100 mg PO BID PRN (Reason: constipation) Qty: 60 RF: 1 Continued vit-iron fum-folic ac 60 mg iron-1 mg Tablet 1 tab PO DAILY RF: 0 ferrous sulfate [iron] 325 mg (65 mg iron) Tablet 325 mg PO DAILY RF: 0 famotidine 20 MG tablet 20 mg PO BID RF: 0 Referrals / Follow Up: Care Physician,No Primary [Primary Care Provider] - Disposition Disposition (needs filled in before D/C Order can be placed): Home, Self Care
[2021-07-09] MEDS: Oxytocin 30 units/NS 500 ml 30 UNITS/500 ML IV.SOLN 167 UNITS IV (11:50)
[2021-07-09 12:40] LABS: Absolute Lymphocyte Count 0.19 X10^3/uL (0.83-4.51); Absolute Neutrophil Count 4.6 X10^3/uL (2.0-7.7); Basophil# 0.01 X10^3/uL; Basophil% 0.2 % (0-1); Hematocrit 33.6 % (37-47); Lymphocyte # 0.19 X10^3/ul (0.83-4.51); Lymphocyte % 3.9 % (19-41); Mean Corp Hgb Conc 32.7 g/dL (32-36); Mean Corpuscular Hgb 28.4 pg (27.0-32.0); Mean Corpuscular Volume 86.8 fL (81-99); Mean Platelet Vol. 10.5 fl (6.2-12.0); Monocyte# 0.02 X10^3/uL; Monocyte% 0.4 % (0-10); NRBC Flagged by Analyzer 0 % (0-5); Neutrophil # 4.59 X10^3/uL (2.7-7.7); Neutrophil % 94.5 % (47-70); POSITIVE DIFFERENTIAL YES; POSITIVE MORPHOLOGY YES; Platelet Count 162 K/mm3 (150-450); RBC Distribution Width CV 14.3 % (11.6-14.6); RBC Distribution Width SD 45.3 fl (35.1-43.9); Red Blood Count 3.87 M/mm3 (4.2-5.4); White Blood Count 4.9 K/mm3 (4.4-11.0)
[2021-07-09 12:41] LABS: Differential Indicated SCAN CRITERIA MET
[2021-07-09] MEDS: Acetaminophen 500 MG Tablet 1000 MG PO ×2 (12:44→18:00)
[2021-07-09] MEDS: Ketorolac 30 MG/ML Syringe IV ×2 (12:44→18:01)
[2021-07-09 12:57] LABS: Differential Comment SCANNED
[2021-07-09 13:51] LABS: Bedside Glucose 89 mg/dL (70-110)
[2021-07-09] MEDS: Lactated Ringers 1,000 ML 100 ML IV (13:52)
[2021-07-09 15:04] LABS: Lactic Acid 3.7 mmol/L (0.4-1.9)
--- NOTE | 2021-07-09 15:45 | NURSING ---
pt instructed on how to use inc spirometer. and using it at this time.
--- NOTE | 2021-07-09 16:07 | NURSING ---
updated on lactic acid results, order to give a 500cc bolus bolus given
[2021-07-09] MEDS: Cefazolin 1 GM/50 ML BAG IV (17:48)
--- NOTE | 2021-07-09 18:25 | PCM.PN.OB ---
Subjective Subjective Patient feeling better after feeling poorly immediately after surgery. Blood pressures have stabilized after approximately 1-1/2 L of IV fluid. Lactic acid elevated just after surgery and plan to repeat in the next 1 to 2 hours with CBC. Patient skin turned bright red immediately after returning to her room. Suspicious for reaction to azithromycin. Now afebrile. Continuing Ancef 2 more doses postoperatively and will continue to monitor closely. Objective Data Objective Data Vital Signs: Vital Signs Temp Pulse Resp BP Pulse Ox 97.7 F L 108 H 16 107/42 L 99 07/09/21 17:37 07/09/21 17:37 07/09/21 17:37 07/09/21 17:37 07/09/21 17:37 Oxygen Delivery Method Room Air Weight: 299 lb 13.259 oz Body Mass Index (BMI) 49.8 Intake & Output: Intake and Output for Last 24 Hours 07/07/21 07/08/21 07/09/21 23:59 23:59 23:59 Intake Total 7016.99 / 7016.99 5642.86 / 5642.86 Output Total 1000 / 1000 950 / 950 Balance 6016.99 / 6016.99 4692.86 / 4692.86 Lab / Micro Data Result Diagrams: 07/09/21 12:13 07/07/21 07:55 Labs: Laboratory Results - last 24 hr 07/08/21 18:26: POC Glucose 80 07/08/21 22:27: POC Glucose 79 07/09/21 01:57: POC Glucose 79 07/09/21 06:54: POC Glucose 113 H 07/09/21 10:03: POC Glucose 127 H 07/09/21 12:13: WBC 4.9, RBC 3.87 L, Hgb 11.0 L, Hct 33.6 L, MCV 86.8, MCH 28.4, MCHC 32.7, RDW Std Deviation 45.3 H, RDW Coeff of Belle 14.3, Plt Count 162, MPV 10.5, Immature Gran % (Auto) 1.000 H, Neut % (Auto) 94.5 H, Lymph % (Auto) 3.9 L, [place] % (Auto) 0.4, Eos % (Auto) 0.0, Baso % (Auto) 0.2, Absolute Neuts (auto) 4.6, Absolute Lymphs (auto) 0.19 L, Nucleated RBC % 0, Differential Comment SCANNED 07/09/21 13:20: POC Glucose 89 07/09/21 14:26: Lactic Acid 3.7 H* Micro: Microbiology 07/07/21 07:55 Nasal Secretion SARS-CoV-2 Antigen (Rapid) - Final
[2021-07-09 18:30] LABS: Reflex Lactate? Y
[2021-07-09] MEDS: Pantoprazole Sodium 20 MG Tablet PO (18:43)
[2021-07-09 19:17] LABS: Absolute Lymphocyte Count 0.32 X10^3/uL (0.83-4.51); Absolute Neutrophil Count 15.9 X10^3/uL (2.0-7.7); Basophil# 0.05 X10^3/uL; Basophil% 0.3 % (0-1); Eosinophil# 0.18 X10^3/uL; Hematocrit 33.4 % (37-47); Hemoglobin 10.6 g/dL (12.0-15.0); Lymphocyte # 0.32 X10^3/ul (0.83-4.51); Lymphocyte % 1.8 % (19-41); Mean Corp Hgb Conc 31.7 g/dL (32-36); Mean Corpuscular Hgb 28.3 pg (27.0-32.0); Mean Corpuscular Volume 89.1 fL (81-99); Mean Platelet Vol. 10.2 fl (6.2-12.0); Monocyte# 0.66 X10^3/uL; Monocyte% 3.8 % (0-10); NRBC Flagged by Analyzer 0 % (0-5); Neutrophil % 91.7 % (47-70); POSITIVE DIFFERENTIAL YES; POSITIVE MORPHOLOGY YES; Platelet Count 165 K/mm3 (150-450); RBC Distribution Width CV 14.5 % (11.6-14.6); RBC Distribution Width SD 46.9 fl (35.1-43.9); Red Blood Count 3.75 M/mm3 (4.2-5.4); White Blood Count 17.4 K/mm3 (4.4-11.0)
[2021-07-09 19:21] LABS: Differential Indicated SCAN CRITERIA MET
[2021-07-09 19:55] LABS: Lactic Acid 2.8 mmol/L (0.4-1.9)
[2021-07-09] MEDS: Enoxaparin 40 MG/0.4 ML Syringe SC (23:19)
[2021-07-10] VITALS (11 sets, daily range): BP systolic 99–117; BP diastolic 51–64; PULSE 84–99; RESP 16–18; TEMP 36.1–37.1; O2SAT 96–100
[2021-07-10] MEDS: Ketorolac 30 MG/ML Syringe IV ×2 (00:13→06:18)
[2021-07-10] MEDS: Acetaminophen 500 MG Tablet 1000 MG PO ×4 (00:13→22:26)
--- NOTE | 2021-07-10 00:39 | NURSING ---
This RN encouraged pt to pump multiple times when in room, pump set up at bedside. Education provided on importance of starting to pump if planning to breastfeed infant, pt verbalized understanding and declined at this time.
[2021-07-10 01:30] LABS: Absolute Lymphocyte Count 0.63 X10^3/uL (0.83-4.51); Absolute Neutrophil Count 16.8 X10^3/uL (2.0-7.7); Basophil# 0.07 X10^3/uL; Basophil% 0.4 % (0-1); Hematocrit 29.3 % (37-47); Hemoglobin 9.3 g/dL (12.0-15.0); Lymphocyte # 0.63 X10^3/ul (0.83-4.51); Lymphocyte % 3.4 % (19-41); Mean Corp Hgb Conc 31.7 g/dL (32-36); Mean Corpuscular Hgb 28.4 pg (27.0-32.0); Mean Corpuscular Volume 89.6 fL (81-99); Mean Platelet Vol. 10.7 fl (6.2-12.0); Monocyte% 3.8 % (0-10); NRBC Flagged by Analyzer 0 % (0-5); Neutrophil # 16.84 X10^3/uL (2.7-7.7); Neutrophil % 90.3 % (47-70); POSITIVE MORPHOLOGY YES; Platelet Count 137 K/mm3 (150-450); RBC Distribution Width CV 14.6 % (11.6-14.6); RBC Distribution Width SD 48.3 fl (35.1-43.9); Red Blood Count 3.27 M/mm3 (4.2-5.4); White Blood Count 18.6 K/mm3 (4.4-11.0)
[2021-07-10 01:34] LABS: Differential Indicated SCAN CRITERIA MET
[2021-07-10 01:39] LABS: Lactic Acid 2.6 mmol/L (0.4-1.9)
[2021-07-10] MEDS: Cefazolin 1 GM/50 ML BAG IV (01:51)
[2021-07-10 02:03] LABS: Differential Comment SCANNED
[2021-07-10] MEDS: Lactated Ringers 1,000 ML 200 ML IV (02:13)
[2021-07-10] MEDS: Lactated Ringers 1,000 ML 100 ML IV (04:28)
[2021-07-10 05:09] LABS: Reflex Lactate? Y
[2021-07-10 06:45] LABS: Bedside Glucose 93 mg/dL (70-110)
[2021-07-10] MEDS: Pantoprazole Sodium 20 MG Tablet PO ×2 (08:15→22:26)
--- NOTE | 2021-07-10 09:45 | PCM.PN.OB ---
Subjective Subjective Patient without complaints. Tolerating diet well. Positive flatus. Minimal vaginal bleeding. Feeling much better today. Objective Data Objective Data Hemoglobin stable. White count appropriate. Lactic acid decreasing appropriately. No fevers since delivery and good urine output. Vital Signs: Vital Signs Temp Pulse Resp BP Pulse Ox 97.5 F L 86 16 101/60 100 07/10/21 07:50 07/10/21 07:50 07/10/21 07:50 07/10/21 07:50 07/10/21 07:50 Oxygen Delivery Method Room Air Weight: 299 lb 13.259 oz Body Mass Index (BMI) 49.8 Intake & Output: Intake and Output for Last 24 Hours 07/08/21 07/09/21 07/10/21 23:59 23:59 23:59 Intake Total 7016.99 / 7016.99 6927.86 / 6927.86 1696.67 / 1696.67 Output Total 1000 / 1000 1750 / 1750 1000 / 1000 Balance 6016.99 / 6016.99 5177.86 / 5177.86 696.67 / 696.67 Lab / Micro Data Result Diagrams: 07/10/21 01:06 07/07/21 07:55 Labs: Laboratory Results - last 24 hr 07/09/21 10:03: POC Glucose 127 H 07/09/21 12:13: WBC 4.9, RBC 3.87 L, Hgb 11.0 L, Hct 33.6 L, MCV 86.8, MCH 28.4, MCHC 32.7, RDW Std Deviation 45.3 H, RDW Coeff of Belle 14.3, Plt Count 162, MPV 10.5, Immature Gran % (Auto) 1.000 H, Neut % (Auto) 94.5 H, Lymph % (Auto) 3.9 L, [place] % (Auto) 0.4, Eos % (Auto) 0.0, Baso % (Auto) 0.2, Absolute Neuts (auto) 4.6, Absolute Lymphs (auto) 0.19 L, Nucleated RBC % 0, Differential Comment SCANNED 07/09/21 13:20: POC Glucose 89 07/09/21 14:26: Lactic Acid 3.7 H* 07/09/21 19:05: WBC 17.4 H, RBC 3.75 L, Hgb 10.6 L, Hct 33.4 L, MCV 89.1, MCH 28.3, MCHC 31.7 L, RDW Std Deviation 46.9 H, RDW Coeff of Belle 14.5, Plt Count 165, MPV 10.2, Immature Gran % (Auto) 1.400 H, Neut % (Auto) 91.7 H, Lymph % (Auto) 1.8 L, [place] % (Auto) 3.8, Eos % (Auto) 1.0, Baso % (Auto) 0.3, Absolute Neuts (auto) 15.9 H, Absolute Lymphs (auto) 0.32 L, Nucleated RBC % 0, Differential Comment 07/09/21 19:05: Lactic Acid 2.8 H* 07/10/21 01:06: WBC 18.6 H, RBC 3.27 L, Hgb 9.3 L, Hct 29.3 L, MCV 89.6, MCH 28.4, MCHC 31.7 L, RDW Std Deviation 48.3 H, RDW Coeff of Belle 14.6, Plt Count 137 L, MPV 10.7, Immature Gran % (Auto) 2.100 H, Neut % (Auto) 90.3 H, Lymph % (Auto) 3.4 L, [place] % (Auto) 3.8, Eos % (Auto) 0.0, Baso % (Auto) 0.4, Absolute Neuts (auto) 16.8 H, Absolute Lymphs (auto) 0.63 L, Nucleated RBC % 0, Differential Comment SCANNED 07/10/21 01:06: Lactic Acid 2.6 H* 07/10/21 06:24: POC Glucose 93 Micro: Microbiology 07/07/21 07:55 Nasal Secretion SARS-CoV-2 Antigen (Rapid) - Final Assessment & Plan (1) Failure of descent in labor, delivered, current hospitalization: (2) delivery delivered: PLAN: Doing well postoperative day #1 status post section for increasing stress and failure to descend. Fever noted immediately pre and postop has resolved. Continue to monitor closely. Anticipate release tomorrow if good progress continues. We will repeat CBC and lactic acid tomorrow a.m. to confirm stable and improving.
[2021-07-10] MEDS: Senna/Docusate Sodium 1 Tablet PO (09:49)
[2021-07-10] MEDS: oxyCODONE 5 MG Tablet PO ×2 (12:08→17:12)
[2021-07-10] MEDS: Ibuprofen 600 MG Tablet PO ×2 (13:10→19:57)
[2021-07-10] MEDS: Enoxaparin 40 MG/0.4 ML Syringe SC (22:29)
[2021-07-11] MEDS: Ibuprofen 600 MG Tablet PO ×3 (01:14→12:57)
[2021-07-11 01:15] VITALS: BP 114/61; PULSE 102; RESP 18; TEMP 36.8; O2SAT 97
[2021-07-11] MEDS: Acetaminophen 500 MG Tablet 1000 MG PO ×2 (05:12→11:06)
[2021-07-11 05:58] VITALS: BP 117/55; PULSE 101; RESP 18; O2SAT 98
--- NOTE | 2021-07-11 07:30 | NURSING ---
report given to Tristian Darling RN who is assuming care of pt at this time
[2021-07-11 07:45] LABS: Absolute Lymphocyte Count 0.94 X10^3/uL (0.83-4.51); Absolute Neutrophil Count 15.5 X10^3/uL (2.0-7.7); Basophil# 0.04 X10^3/uL; Basophil% 0.2 % (0-1); Eosinophils% 0.6 % (0-5); Hematocrit 29.3 % (37-47); Hemoglobin 9.3 g/dL (12.0-15.0); Lymphocyte # 0.94 X10^3/ul (0.83-4.51); Lymphocyte % 5.4 % (19-41); Mean Corp Hgb Conc 31.7 g/dL (32-36); Mean Corpuscular Hgb 28.4 pg (27.0-32.0); Mean Corpuscular Volume 89.6 fL (81-99); Mean Platelet Vol. 10.7 fl (6.2-12.0); Monocyte# 0.56 X10^3/uL; Monocyte% 3.2 % (0-10); NRBC Flagged by Analyzer 0 % (0-5); Platelet Count 168 K/mm3 (150-450); RBC Distribution Width CV 14.7 % (11.6-14.6); Red Blood Count 3.27 M/mm3 (4.2-5.4); White Blood Count 17.4 K/mm3 (4.4-11.0)
[2021-07-11] MEDS: Pantoprazole Sodium 20 MG Tablet PO (08:06)
--- NOTE | 2021-07-11 08:16 | PCM.PN.OB ---
Subjective Subjective Patient with mild central substernal chest pain this morning. Improving. Stable. Denies weakness, visual changes, shortness of breath Objective Data Objective Data Vital Signs: Vital Signs Temp Pulse Resp BP Pulse Ox 98.3 F 101 H 18 117/55 L 98 07/11/21 01:15 07/11/21 05:58 07/11/21 05:58 07/11/21 05:58 07/11/21 05:58 Oxygen Delivery Method Room Air Weight: 299 lb 13.259 oz Body Mass Index (BMI) 49.8 Intake & Output: Intake and Output for Last 24 Hours 07/09/21 07/10/21 07/11/21 23:59 23:59 23:59 Intake Total 6954.69 / 6954.69 1950.00 / 1950.00 Output Total 1750 / 1750 1000 / 1000 Balance 5204.69 / 5204.69 950.00 / 950.00 Lab / Micro Data Result Diagrams: 07/11/21 07:30 07/07/21 07:55 Labs: Laboratory Results - last 24 hr 07/11/21 07:30: WBC 17.4 H, RBC 3.27 L, Hgb 9.3 L, Hct 29.3 L, MCV 89.6, MCH 28.4, MCHC 31.7 L, RDW Std Deviation 48.0 H, RDW Coeff of Belle 14.7 H, Plt Count 168, MPV 10.7, Immature Gran % (Auto) 1.600 H, Neut % (Auto) 89.0 H, Lymph % (Auto) 5.4 L, [place] % (Auto) 3.2, Eos % (Auto) 0.6, Baso % (Auto) 0.2, Absolute Neuts (auto) 15.5 H, Absolute Lymphs (auto) 0.94, Nucleated RBC % 0 Micro: Microbiology 07/07/21 07:55 Nasal Secretion SARS-CoV-2 Antigen (Rapid) - Final Physical Exam Const alert, oriented x3, no apparent distress, average body habitus, healthy appearing and well nourished HEENT normocephalic and moist oral mucous membranes Head and Scalp: atraumatic Face and Sinus: normal facial exam Neck full ROM Resp normal respiratory effort, no retractions and no use of accessory muscles Extremity normal to inspection, full ROM and no clubbing, cyanosis or edema Psych mental status grossly normal, affect normal, speech normal and activity/motor behavior normal Assessment & Plan (1) delivery delivered: PLAN: Postoperative day 2 status post primary section. Patient with substernal chest pain lactic acid trending downward. CBC stable. Vital signs stable. We will continue to monitor. Baby in special care nursery for jaundice and now on room air.
[2021-07-11 08:18] LABS: Lactic Acid 1.3 mmol/L (0.4-1.9)
[2021-07-11 08:26] VITALS: BP 122/64; PULSE 90; RESP 18; TEMP 36.4; O2SAT 97
--- NOTE | 2021-07-11 08:56 | PCM.DC.BLA ---
Discharge Summary Date of Admission: 07/08/21 Date of Discharge: 07/11/21 Summary: Patient arrived on 07/08/2021 for induction of labor at term. Patient progressed to 10 cm dilated but had nonreassuring heart tones and primary section was performed on 07/09/2021. Patient with fever and chest pain with postoperative recovery lactic acid initially elevated within normal limits and trended downward. Later became asymptomatic and had routine recovery. Discharge home on 07/11/2021 Physical Exam Const alert, oriented x3, no apparent distress, average body habitus, no limitations and healthy appearing Neck full ROM Resp normal respiratory effort, normal air movement, no retractions and no use of accessory muscles Psych mental status grossly normal, thought process normal, cooperative, affect normal and speech normal Meaningful Use Info Meaningful Use Diagnoses (Choose all that apply): None applicable Discharge Plan Admission Admit Date/Time: 07/07/21 06:55 Primary Reason for Your Visit: Obstetrical Delivery Attending Provider: Daren Blair Primary Care Provider: Care Physician,No Primary Discharge Orders/Prescriptions Prescriptions: New oxycodone 5 mg capsule 5 mg PO Q6H PRN (Reason: pain) 7 Days Qty: 14 RF: 0 docusate sodium 100 mg tablet 100 mg PO BID PRN (Reason: constipation) Qty: 60 RF: 1 Continued vit-iron fum-folic ac 60 mg iron-1 mg Tablet 1 tab PO DAILY RF: 0 ferrous sulfate [iron] 325 mg (65 mg iron) Tablet 325 mg PO DAILY RF: 0 famotidine 20 MG tablet 20 mg PO BID RF: 0 Referrals / Follow Up: Care Physician,No Primary [Primary Care Provider] - Disposition Disposition (needs filled in before D/C Order can be placed): Home, Self Care
[2021-07-11] MEDS: Senna/Docusate Sodium 1 Tablet PO (11:06)
[2021-07-11 12:00] VITALS: BP 129/86; PULSE 90; RESP 18; TEMP 36.7; O2SAT 97
== END 2021-07-11 15:02 | disposition home or self-care (01) | DRG 787 ==
PROVIDERS: Obstetrics & Gynecology; Admitting Provider Obstetrics & Gynecology; Referring Provider Obstetrics & Gynecology; Visit Provider Obstetrics & Gynecology
DX: O24.429 Gestational diabetes mellitus in childbirth, unspecified control (principal); O86.4 Pyrexia of unknown origin following delivery; O76 Abnormality in fetal heart rate and rhythm complicating labor and delivery; O77.0 Labor and delivery complicated by meconium in amniotic fluid; O69.81X0 Labor and delivery complicated by cord around neck, without compression, not applicable or unspecified; Z3A.38 38 weeks gestation of pregnancy; Z37.0 Single live birth; O90.89 Other complications of the puerperium, not elsewhere classified; R07.9 Chest pain, unspecified
CPT/HCPCS: 36415; 59025; 59050; 80053; 82962; 83605; 83615; 85025; 86803; 86850; 86900; 86901; 87426; 99218; J7120; A4216; G0378; J2405

== ENCOUNTER → 2021-08-09 | Outpatient (CLI) | payer OTHER, SELFPAY | END | disposition home or self-care (01) | LOC: LABSPEC 13:34 | PROVIDERS: Visit Provider Obstetrics & Gynecology | DX: O86.00 Infection of obstetric surgical wound, unspecified (principal) | CPT/HCPCS: 87070; 87205 ==

== ENCOUNTER 2022-01-16 16:28 | Emergency (ER) | payer OTHER, SELFPAY ==
[2022-01-16 16:29] VITALS: BP 152/94; PULSE 114; RESP 20; TEMP 36.9; O2SAT 100; BMI 47.8
--- NOTE | 2022-01-16 16:41 | EKG12_ITS ---
Test Reason : Blood Pressure : / mmHG Vent. Rate : 106 BPM Atrial Rate : 106 BPM P-R Int : 162 ms QRS Dur : 096 ms QT Int : 338 ms P-R-T Axes : 043 013 028 degrees QTc Int : 448 ms Sinus tachycardia Otherwise normal ECG Confirmed by MEME TRAN, KAY ([id number]), editor school photograph ELIZABETH JERNIGAN ([id number]) on 01/18/2022 9:46:26 AM Referred By: JONH Confirmed By:KAY VALENTINE MD
--- NOTE | 2022-01-16 17:00 | RAD_ITS ---
STUDY: X-RAY CHEST REASON FOR EXAM: Female, 26 years old. Technologist Notes Chest pain starting today on augmentin for sinus infection since the weekend, diarrhea cp TECHNIQUE: XR Chest 2 Views COMPARISON: 09.15.20 FINDINGS: There is no demonstrated pleural abnormality. Normal size heart. Normal mediastinum and renae. Normal visualized pulmonary arteries. Normal visualized aortic arch and descending thoracic aorta. Normal visualized thoracic spine. Normal visualized ribs, clavicles, and shoulders. There is no demonstrated abnormality of the visualized soft tissue structures of the upper abdomen. RAD/Chest PA and Lateral IMPRESSION: There are no acute findings. Electronically Signed: Sabas Bryant MD at 17:24 EDT ,
[2022-01-16 17:12] LABS: Absolute Lymphocyte Count 2.08 X10^3/uL (0.83-4.51); Absolute Neutrophil Count 10.3 X10^3/uL (2.0-7.7); Basophil# 0.04 X10^3/uL; Basophil% 0.3 % (0-1); D-Dimer Quantitative (DVT/PE) < 0.27 FEU/ug/m (0.27-0.49); Eosinophil# 0.07 X10^3/uL; Eosinophils% 0.5 % (0-5); Hematocrit 38.6 % (37-47); Hemoglobin 12.4 g/dL (12.0-15.0); Lymphocyte # 2.08 X10^3/ul (0.83-4.51); Lymphocyte % 15.7 % (19-41); Mean Corp Hgb Conc 32.1 g/dL (32-36); Mean Corpuscular Hgb 27.3 pg (27.0-32.0); Mean Platelet Vol. 10.5 fl (6.2-12.0); Monocyte# 0.72 X10^3/uL; Monocyte% 5.4 % (0-10); NRBC Flagged by Analyzer 0 % (0-5); Neutrophil # 10.32 X10^3/uL (2.7-7.7); Neutrophil % 77.7 % (47-70); Platelet Count 344 K/mm3 (150-450); RBC Distribution Width CV 14.7 % (11.6-14.6); RBC Distribution Width SD 45.4 fl (35.1-43.9); Red Blood Count 4.54 M/mm3 (4.2-5.4); White Blood Count 13.3 K/mm3 (4.4-11.0)
--- NOTE | 2022-01-16 17:12 | EDS_ITS ---
HPI History of Present Illness Chief Complaint: Chest Pain Detail of Chief Complaint: Midsternal chest discomfort Informant: patient Onset/Context/Timing Onset: Hours Activity at onset: sudden Timing: Continuous Quality: Positive for Aching Location: Substernal Current Severity: Mild Maximum Severity: Moderate Worsened By: Nothing Relieved By: Nothing Associated Symptoms: Positive for - (Denies leg pain, swelling discoloration. Has no history of VTE); Negative for Nausea, Vomiting, Diaphoresis, Dyspnea, Cough, Fever, Lightheadedness, Acid Reflux and Palpitations Narrative Prior Similar Symptoms: No Recent Illness/Hospitalization: Yes (Sinus infection on third course of antibiotics since the beginning of November) CVD Risk Factors: Negative for Hypertension, Diabetes, Hypercholesterolemia, Family History 1' </=55 and Smoking PE Risk Factors: Negative for Recent Travel/Surgery, Recent Immobilization, Prior DVT or PE, Cancer and OCP + Smoking + >/=35 TAD Risk Factors: Negative for Marfan's Syndrome, Hypertension and Family History PFSH PFS Medical History Acute bronchitis Acute urinary retention Anxiety Attention deficit disorder of childhood with hyperactivity Contact with or suspected exposure to other viral communicable disease Decreased movement Depression False labor, antepartum Fungal dermatitis Gestational diabetes Right wrist sprain Spontaneous Threatened in second trimester Home Medications ferrous sulfate [iron] 325 mg PO DAILY 05/26/21 [History Last Taken 07/07/21] vit-iron fum-folic ac 1 tab PO DAILY 05/26/21 [History Last Taken 07/07/21] famotidine 20 mg PO BID 06/22/21 [History Last Taken 07/07/21] docusate sodium 100 mg PO BID PRN #60 tab 07/09/21 [Rx Last Taken Unknown] oxycodone 5 mg PO Q6H PRN 7 Days #14 cap 07/09/21 [Rx Last Taken Unknown] amoxicillin 875 mg-potassium clavulanate 125 mg tablet 1 tab PO Q12H 10 Days #20 tab 01/09/22 [Rx Last Taken Unknown] Allergy/AdvReac Type Severity Reaction Status Date / Time azithromycin Allergy Rash Verified 01/16/22 16:34 Surgical History H/O adenoidectomy Hx of dilation and curettage Hx of tonsillectomy [place] teeth extracted Social History household members: significant other Smoking Status: Never smoker alcohol intake: never substance use type: does not use ROS ROS ED Constitutional Constitutional ED: Denies chills, fever(s), subjective, sweats or weight loss Eyes Eyes: Denies blurry vision, change in vision or diplopia ENT ENT ED: Denies ear pain, rhinorrhea or sore throat Cardiovascular Cardiovascular: Reports as per HPI; Denies orthopnea or paroxysmal nocturnal dyspnea Respiratory/Chest Respiratory/Chest: Denies cough, dyspnea, dyspnea on exertion, orthopnea or paroxysmal nocturnal dyspnea Gastrointestinal Gastrointestinal: Denies abdominal pain, diarrhea, melena, nausea or vomiting Genitourinary Genitourinary ED: Denies dysuria, hematuria or urinary frequency Musculoskeletal Musculoskeletal: Denies arthralgias, back pain, myalgias or neck pain Integumentary Denies abscess, Abrasions or rash Neurologic Neurologic: Denies headache(s) or weakness Psychiatric Psychiatric: Denies anxiety or depression Endocrine Endocrinology: Denies polydipsia, polyphagia or polyuria Hematologic/Lymphatic Hematologic/Lymphatic: Denies easy bleeding or easy bruising EXAM Physical Exam Const Vital Signs: 01/16/22 16:29 01/16/22 17:29 01/16/22 17:50 Temperature 98.4 F Temperature Source Oral Pulse Rate 114 H 98 Respiratory Rate 20 H 19 H Respiratory Effort Normal Non-Labored Blood Pressure 152/94 H 138/90 H Blood Pressure Mean 113 106 Pulse Ox 100 98 Oxygen Delivery Method Room Air Room Air 01/16/22 18:00 01/16/22 19:09 Temperature Temperature Source Pulse Rate 96 92 Respiratory Rate 17 18 Respiratory Effort Blood Pressure 128/78 H 140/76 H Blood Pressure Mean 94 97 Pulse Ox 97 96 Oxygen Delivery Method Room Air Room Air Positive well nourished, well developed and obese General Appearance ED: well developed and NAD; Negative for pallor Nutritional Appearance: obese HEENT Reports TM's clear and moist mucous membranes HEENT Narrative: Uvula midline. There is no erythema or exudate. There is no angioedema. normocephalic and atraumatic Tympanic Membrane ED: Yes TM's clear Eyes PERRL and EOMs intact bilaterally General Eye ED: Negative for pale conjunctiva or scleral icterus Neck no lymphadenopathy, supple and no JVD Chest Wall inspection of chest normal and palpation of chest normal Resp normal respiratory effort and clear to auscultation bilaterally Effort and Inspection: respiratory distress Cardio regular rhythm, S1 normal heart sound, S2 normal heart sound and no murmurs Rate: tachycardic GI normal to inspection, nondistended, normoactive bowel sounds, soft to palpation, non-tender and non-distended; Negative for hepatosplenomegaly GI Narrative: Negative clinical Pedraza sign Back/Spine no CVA tenderness Extremity normal to inspection Extremity Narrative: There is no asymmetry, swelling, discoloration, leg vein distention, palpable cords or tenderness along the distribution of the deep venous system. General Extremety ED: Negative for edema or tenderness General Extremity: Negative for edema Neuro oriented x3, CN's II-XII intact bilaterally and no sensory deficits noted Sensorium / Orientation: awake and alert Motor Exam: strength 5/5 throughout Psych mental status grossly normal Skin no rashes or lesions noted and no wounds General Skin Exam: Negative for jaundice or pallor MDM MDM MDM Narrative Medical decision making narrative: Patient presents with chest pain. She is on control pills. She has missed some control pills. We will need to obtain serum hCG. She has not missed her menses. Differential would include cardiac chest pain versus [place] cardiac. Patient is not PERC negative; therefore, a D-dimer was obtained. CBC was obtained to rule out anemia and evaluate white count. Chest x-ray to determine if there is a pulmonary cause i.e. pneumonia, pneumothorax. Lab Data Attestation: I reviewed the patient's lab results. Lab results narrative: White count is elevated which is nonspecific. D-dimer is less than 0.27 which is negative for PE. Troponin is less than 3 which is negative for cardiac etiology of her chest pain. Basic metabolic panels are marked for slight elevation of glucose of 139 normal at 1.5. Labs: Laboratory Results - last 24 hr 01/16/22 01/16/22 01/16/22 16:50 16:50 16:50 WBC 13.3 H RBC 4.54 Hgb 12.4 Hct 38.6 MCV 85.0 MCH 27.3 MCHC 32.1 RDW Std Deviation 45.4 H RDW Coeff of Belle 14.7 H Plt Count 344 MPV 10.5 Immature Gran % (Auto) 0.400 Neut % (Auto) 77.7 H Lymph % (Auto) 15.7 L [place] % (Auto) 5.4 Eos % (Auto) 0.5 Baso % (Auto) 0.3 Absolute Neuts (auto) 10.3 H Absolute Lymphs (auto) 2.08 Nucleated RBC % 0 D-Dimer Quant (PE/DVT) < 0.27 L Sodium 141 Potassium 3.2 L Chloride 108 H Carbon Dioxide 26.0 Anion Gap 7 BUN 8 Creatinine 0.80 Estim Creat Clear Calc 96.73 Est GFR (MDRD) Af Amer 111 Est GFR (MDRD) Non-Af 92 BUN/Creatinine Ratio 9.9 L Glucose 139 H Lactic Acid Calcium 8.5 Total Bilirubin 0.30 AST 11 L ALT 20 Alkaline Phosphatase 94 Troponin I High Sens < 3 L Total Protein 7.9 Albumin 3.6 Globulin 4.3 H Albumin/Globulin Ratio 0.8 L 01/16/22 16:50 WBC RBC Hgb Hct MCV MCH MCHC RDW Std Deviation RDW Coeff of [place] Plt Count MPV Immature Gran % (Auto) Neut % (Auto) Lymph % (Auto) [place] % (Auto) Eos % (Auto) Baso % (Auto) Absolute Neuts (auto) Absolute Lymphs (auto) Nucleated RBC % D-Dimer Quant (PE/DVT) Sodium Potassium Chloride Carbon Dioxide Anion Gap BUN Creatinine Estim Creat Clear Calc Est GFR (MDRD) Af Amer Est GFR (MDRD) Non-Af BUN/Creatinine Ratio Glucose Lactic Acid 1.5 Calcium Total Bilirubin AST ALT Alkaline Phosphatase Troponin I High Sens Total Protein Albumin Globulin Albumin/Globulin Ratio Radiography Chest X-Ray - ED: 2 View, Read by ED Physician (Independently interpreted by me at 1712), Normal, Heart, Lungs, Mediastinum, Bony Structures and No Acute Disease Diagnostic Testing: Clinical Impression(s) from Imaging Studies Chest X-Ray 01/16/22 17:00 IMPRESSION: There are no acute findings. Electronically Signed: Sabas Bryant MD at 17:24 EDT , EKG Initial EKG: Attestation: I personally reviewed and interpreted this EKG as follows: Interpretation: Sinus Tachycardia Comments: Rate is 106. [place] 160 ms. QS duration 96 ms. QT duration 3 and 38 ms. [place] normal. The EKG is normal other than a rapid rate. Discharge Plan Triage Chief Complaint: Chest Pain ED Provider: Cristi Guadarrama Dx/Rx/DC Orders Clinical Impression: Central chest pain, Sinus tachycardia, Dyspnea, Elevated blood pressure reading Instructions: ED Chest Pain, Noncardiac, ED Dyspnea, ED Hypertension, To Be Confirmed Prescriptions: No Action amoxicillin-pot clavulanate 875-125 mg tablet 1 tab PO Q12H 10 Days Qty: 20 RF: 0 vit-iron fum-folic ac 60 mg iron-1 mg Tablet 1 tab PO DAILY RF: 0 ferrous sulfate [iron] 325 mg (65 mg iron) Tablet 325 mg PO DAILY RF: 0 famotidine 20 MG tablet 20 mg PO BID RF: 0 oxycodone 5 mg capsule 5 mg PO Q6H PRN (Reason: pain) 7 Days Qty: 14 RF: 0 docusate sodium 100 mg tablet 100 mg PO BID PRN (Reason: constipation) Qty: 60 RF: 1 Referrals: Dariel Clarke MD [STAFF PHYSICIAN] - 5-7 Days Disposition Disposition: Home, Self Care
--- NOTE | 2022-01-16 17:22 | CM.ED ---
SW Note SW noted on tracker patient had no PCP. ZI met with patient. SHe has a PCP at [facility]. No further issues or needs identified. Marlee KEEN
[2022-01-16 17:25] LABS: ALB/GLOB Ratio 0.8 RATIO (0.9-2.4); AST(SGOT) 11 U/L (15-37); Alanine Aminotransfer ALT/SGPT 20 U/L (13-56); Albumin, Serum 3.6 g/dL (3.2-5.0); Alkaline Phosphatase 94 U/L (45-117); Anion Gap 7 (5-15); BUN 8 mg/dL (7-18); BUN/Creat Ratio 9.9 RATIO (10-20); Calcium,Total 8.5 mg/dL (8.5-10.1); Chloride 108 mmol/L (98-107); EST Glomerular Filtration Rate 92 mL/min (>60); Est Glom Filt Rate - Afr Amer 111 mL/min (>60); Estimated Creatinine Clearance 96.73 ml/min; Globulin 4.3 g/dL (2.2-4.2); Glucose 139 mg/dL (74-106); Lactic Acid 1.5 mmol/L (0.4-1.9); Potassium 3.2 mmol/L (3.5-5.1); Protein, Total 7.9 g/dL (6.4-8.2); Sodium Level 141 mmol/L (136-145); Troponin-I HS < 3 pg/mL (3.0-54.0)
[2022-01-16 17:29] VITALS: BP 138/90; PULSE 98; RESP 19; O2SAT 98
[2022-01-16 18:00] VITALS: BP 128/78; PULSE 96; RESP 17; O2SAT 97
[2022-01-16 19:09] VITALS: BP 140/76; PULSE 92; RESP 18; O2SAT 96
[2022-01-16 20:56] VITALS: BP 133/89; PULSE 96; RESP 23; O2SAT 99
== END 2022-01-16 21:07 | disposition home or self-care (01) ==
PROVIDERS: Emergency Provider Emergency Medicine; Visit Provider Emergency Medicine
DX: R07.89 Other chest pain (principal); R03.0 Elevated blood-pressure reading, without diagnosis of hypertension
CPT/HCPCS: 71046; 80053; 83605; 84484; 85025; 85379; 93005; 99285; A4216

== ENCOUNTER 2024-06-20 21:44 | Emergency (ER) | payer OTHER, SELFPAY ==
[2024-06-20 21:45] VITALS: BP 139/75; PULSE 104; RESP 16; TEMP 36.9; O2SAT 100; BMI 40.6
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
[2024-06-20 23:00] LABS: Mucous, Urine 0 SEEN /hpf (<or=2+); Red Blood Cells-Urine 0 SEEN /hpf (0-5); Squamous Epithelial Cells - UA 0 SEEN /hpf (5-10); White Blood Cells 0 SEEN /hpf (0-5)
[2024-06-20 23:03] LABS: Absolute Lymphocyte Count 2.32 X10^3/uL (0.83-4.51); Absolute Neutrophil Count 8.9 X10^3/uL (2.0-7.7); Basophil# 0.04 X10^3/uL; Basophil% 0.3 % (0-1); Eosinophil# 0.15 X10^3/uL; Eosinophils% 1.2 % (0-5); Hematocrit 36.1 % (37-47); Hemoglobin 11.6 g/dL (12.0-15.0); Lymphocyte # 2.32 X10^3/ul (0.83-4.51); Lymphocyte % 18.7 % (19-41); Mean Corp Hgb Conc 32.1 g/dL (32-36); Mean Corpuscular Hgb 28.6 pg (27.0-32.0); Mean Corpuscular Volume 88.9 fL (81-99); Mean Platelet Vol. 10.3 fl (6.2-12.0); Monocyte# 0.93 X10^3/uL; Monocyte% 7.5 % (0-10); NRBC Flagged by Analyzer 0 % (0-5); Neutrophil # 8.88 X10^3/uL (2.7-7.7); Neutrophil % 71.8 % (47-70); Platelet Count 232 K/mm3 (150-450); RBC Distribution Width CV 13.3 % (11.6-14.6); RBC Distribution Width SD 43.1 fl (35.1-43.9); Red Blood Count 4.06 M/mm3 (4.2-5.4); White Blood Count 12.4 K/mm3 (4.4-11.0)
[2024-06-20 23:09] LABS: Color, Urine Yellow (Yellow); Glucose, Dipstick Normal (Normal); Ketone-Dipstick Negative (Negative); Leukocyte Esterase-Dipstick Negative /ul (Negative); Nitrite-Dipstick Negative (Negative); Occult Blood-Urine Negative /ul (Negative); Protein-Dipstick Negative (Negative); Specific Gravity, Urine 1.005 (1.002-1.030); Urine Bilirubin Dipstick Negative (Negative); Urine Clarity Clear (Clear); Urine Urobilinogen Normal (Normal)
[2024-06-20 23:16] LABS: Bacteria RARE /hpf (None Seen)
[2024-06-20 23:17] LABS: Anion Gap 4 (5-15); BUN 9 mg/dL (7-18); BUN/Creat Ratio 12.7 RATIO (10-20); Calcium,Total 8.9 mg/dL (8.5-10.1); Chloride 111 mmol/L (98-107); Creatinine, Serum 0.71 mg/dL (0.55-1.02); EST Glomerular Filtration Rate 104 mL/min (>60); Est Glom Filt Rate - Afr Amer 126 mL/min (>60); Estimated Creatinine Clearance 147.61 ml/min; Glucose 93 mg/dL (74-106); Potassium 3.3 mmol/L (3.5-5.1); Sodium Level 142 mmol/L (136-145)
[2024-06-20 23:40] LABS: hCG Titer Quant., Serum 41181 mIU/mL (1-3)
[2024-06-21 01:15] VITALS: BP 128/55; PULSE 101; RESP 16; O2SAT 99
[2024-06-21] MEDS: Potassium Chloride Oral Tablet 20 MEQ 40 MEQ PO (01:56)
[2024-06-21 02:59] VITALS: BP 126/74; PULSE 81; RESP 16; TEMP 36.9; O2SAT 99
== END 2024-06-21 03:00 | disposition home or self-care (01) ==
PROVIDERS: Emergency Provider Surgery; PCP Family Medicine; Visit Provider Surgery
DX: O26.891 Other specified pregnancy related conditions, first trimester (principal); R10.2 Pelvic and perineal pain; R10.30 Lower abdominal pain, unspecified; O99.281 Endocrine, nutritional and metabolic diseases complicating pregnancy, first trimester; E87.6 Hypokalemia; V43.02XA Car driver injured in collision with other type car in nontraffic accident, initial encounter; Y92.481 Parking lot as the place of occurrence of the external cause; Z3A.01 Less than 8 weeks gestation of pregnancy; Z79.899 Other long term (current) drug therapy
CPT/HCPCS: 76817; 80048; 81001; 84702; 85025; 86900; 86901; 99282; A4216

== ENCOUNTER 2024-12-24 06:30 | Outpatient (CLI) | payer OTHER, SELFPAY ==
[2024-12-24 06:36] VITALS: BMI 48.5
[2024-12-24 06:48] VITALS: BP 121/57; PULSE 88
[2024-12-24 07:50] LABS: Mucous, Urine 0 SEEN /hpf (<or=2+); Squamous Epithelial Cells - UA 0 SEEN /hpf (5-10)
[2024-12-24 07:56] LABS: Color, Urine Straw (Yellow); Glucose, Dipstick Normal (Normal); Ketone-Dipstick Negative (Negative); Leukocyte Esterase-Dipstick Negative /ul (Negative); Nitrite-Dipstick Negative (Negative); Occult Blood-Urine Negative /ul (Negative); Protein-Dipstick Negative (Negative); Urine Bilirubin Dipstick Negative (Negative); Urine Clarity Clear (Clear); Urine Urobilinogen Normal (Normal)
[2024-12-24 08:04] LABS: White Blood Cells 0-5 SEEN /hpf (0-5)
[2024-12-24 08:05] LABS: Bacteria 1+ /hpf (None Seen); Red Blood Cells-Urine 0-5 SEEN /hpf (0-5)
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
== END 2024-12-24 08:40 | disposition home or self-care (01) ==
LOC: WPOUT 06:35 → WP 06:36
PROVIDERS: PCP Family Medicine; Referring Provider Obstetrics & Gynecology; Visit Provider Obstetrics & Gynecology
DX: Z04.3 Encounter for examination and observation following other accident (principal); W01.0XXA Fall on same level from slipping, tripping and stumbling without subsequent striking against object, initial encounter; Y93.E1 Activity, personal bathing and showering; O47.03 False labor before 37 completed weeks of gestation, third trimester; Z3A.33 33 weeks gestation of pregnancy
CPT/HCPCS: 59025; 59050; 81001; 99221; G0378

== ENCOUNTER 2024-12-25 09:20 | Outpatient (CLI) | payer OTHER, SELFPAY ==
[2024-12-25] VITALS (51 sets, daily range): BP systolic 124–142; BP diastolic 55–71; PULSE 80–97; RESP 14; TEMP 37.2; O2SAT 97–100
[2024-12-25 10:20] LABS: Color, Urine Straw (Yellow); Glucose, Dipstick Normal (Normal); Ketone-Dipstick Negative (Negative); Leukocyte Esterase-Dipstick 25 /ul (Negative); Nitrite-Dipstick Negative (Negative); Occult Blood-Urine Negative /ul (Negative); Protein-Dipstick Negative (Negative); Specific Gravity, Urine 1.005 (1.002-1.030); Urine Bilirubin Dipstick Negative (Negative); Urine Clarity Clear (Clear); Urine Urobilinogen Normal (Normal)
[2024-12-25 10:31] LABS: ROM Internal Control Test YES-OK TO RESULT pt. (Internal QC); ROM Patient Test Negative (Negative); Record Kit Lot#, ROM+ K3294
--- NOTE | 2024-12-25 12:52 | OB.TRI.HP_ITS ---
HPI - General General Date of Service: 12/25/24 HPI Narrative CHUCKY PALACIOS, is a 29 F who presents ctxs and possible LOF. Maternal Data Information PABLO Calculator Estimated Delivery Date Method Current WG Current Estimate 02/08/25 Manual 33w 4d PFSH PFSH Medical History Acute bronchitis Acute urinary retention Anxiety Attention deficit disorder of childhood with hyperactivity Contact with or suspected exposure to other viral communicable disease Decreased movement Depression False labor, antepartum Fungal dermatitis Gestational diabetes Right wrist sprain Spontaneous Threatened in second trimester Home Medications ?Medication ?Instructions ?Recorded ?Last Taken ?Type ferrous sulfate 325 mg (65 mg 325 mg PO DAILY anemia 0 05/26/21 07/07/21 History iron) tablet (iron) vit with calcium-iron 1 tab PO DAILY pregnanc y 05/26/21 07/07/21 History fum-folic acid 60 mg iron-1 mg tablet famotidine 20 mg tablet 20 mg PO BID heart burn 03/0707/07/21 History docusate sodium 100 mg tablet 100 mg PO BID PRN consti pation #60 07/09/21 Unknown Rx tabs oxycodone 5 mg capsule 5 mg PO Q6H PRN pain 7 days #14 07/09/21 Unknown Rx caps Allergy/AdvReac Type Severity Reaction Status Date / Time azithromycin Allergy Rash Verified 06/20/24 21:46 Surgical History H/O adenoidectomy Hx of dilation and curettage Hx of tonsillectomy [place] teeth extracted Social History household members: significant other Smoking Status: Never smoker alcohol intake: never substance use type: does not use History Elective abortions Hx Para 0 Spontaneous abortions Hx # Term Pregnancies Ectopic pregnancies Hx # Pregnancies Multiple births # of living children Physical Exam Const alert and oriented x3 GI soft to palpation, non-tender and non-distended Inspection: gravid external exam normal Narrative: cvx - 1/50/-3 NST FHR Rate Baby A Baseline: 140 Variability:: Moderate Accelerations:: 15 x 15 Decelerations:: Variable NST Reactive:: Yes Uterine Activity:: Irregular Assessment & Plan (1) Threatened premature labor: QUALIFIERS: Trimester: third trimester Qualified Code(s): O47.03 - False labor before 37 completed weeks of gestation, third trimester PLAN: Plan No evidence PTL. Reactive NST.
== END 2024-12-25 13:10 | disposition home or self-care (01) ==
LOC: WPOUT 09:22 → WP 09:22
PROVIDERS: PCP Family Medicine; Referring Provider Obstetrics & Gynecology; Visit Provider Obstetrics & Gynecology
DX: O47.00 False labor before 37 completed weeks of gestation, unspecified trimester (principal); Z79.4 Long term (current) use of insulin; Z3A.00 Weeks of gestation of pregnancy not specified; Z79.82 Long term (current) use of aspirin; Z79.899 Other long term (current) drug therapy
CPT/HCPCS: 59025; 59050; 81002; 84112; 87086; 87088; 99221; G0378

== ENCOUNTER 2024-12-26 17:50 | Outpatient (CLI) | payer OTHER, SELFPAY ==
[2024-12-26 18:08] VITALS: BP 136/70; PULSE 91; RESP 18; TEMP 36.9
[2024-12-26 18:23] VITALS: BMI 49.1
[2024-12-26 19:15] LABS: ROM Internal Control Test YES-OK TO RESULT pt. (Internal QC); ROM Patient Test Negative (Negative); Record Kit Lot#, ROM+ K3294
--- NOTE | 2024-12-29 06:02 | OB.TRI.HP_ITS ---
HPI - General General Date of Admission: 12/26/24 Date of Service: 12/26/24 Chief Complaint: leaking HPI Narrative CHUCKY PALACIOS, is a 29 F who presents possible LOF. No bleeding No contractions. ROM negative Maternal Data Information PABLO Calculator Estimated Delivery Date Method Current WG Current Estimate 02/08/25 Manual 34w 1d Final PABLO: 02/08/25 Gestational age: 34 PFSH PFSH Medical History Acute bronchitis Acute urinary retention Anxiety Attention deficit disorder of childhood with hyperactivity Contact with or suspected exposure to other viral communicable disease Decreased movement Depression False labor, antepartum Fungal dermatitis Gestational diabetes Right wrist sprain Spontaneous Threatened in second trimester Home Medications ?Medication ?Instructions ?Recorded ?Last Taken ?Type ferrous sulfate 325 mg (65 mg 325 mg PO DAILY anemia 0 05/26/21 12/25/24 20:00 History iron) tablet (iron) 325 mg vit with calcium-iron 1 tab PO DAILY pregnanc y 05/26/21 12/26/24 09:00 History fum-folic acid 60 mg iron-1 mg 1 TAB tablet famotidine 20 mg tablet 20 mg PO BID heart burn 03/0712/26/24 09:00 History 20 mg docusate sodium 100 mg tablet 100 mg PO BID PRN consti pation #60 07/09/2112/16 09:00 Rx tabs 100 mg aspirin 81 mg chewable tablet 1 tab PO DAILY 12/26/24 12/26/24 09:00 History 1 TAB fluoxetine 20 mg capsule (Prozac) 20 mg PO DAILY 12/2612/26/24 09:00 History 20 mg Allergy/AdvReac Type Severity Reaction Status Date / Time azithromycin Allergy Rash Verified 12/26/24 18:10 Surgical History H/O adenoidectomy Hx of dilation and curettage Hx of tonsillectomy [place] teeth extracted Social History household members: significant other Smoking Status: Never smoker alcohol intake: never substance use type: does not use History 4 Elective abortions Hx Para 1 Spontaneous abortions Hx # Term Pregnancies Ectopic pregnancies Hx # Pregnancies Multiple births # of living children NST FHR Rate Baby A Baseline: 145 Variability:: Moderate Accelerations:: 15 x 15 Decelerations:: None NST Reactive:: Yes FHR Category:: Category I Uterine Activity:: quiet Assessment & Plan (1) Encounter for suspected premature rupture of membranes, with rupture of membranes not found: (2) 34 weeks gestation of : PLAN: Plan Membranes not ruptured.
== END 2024-12-26 19:29 | disposition home or self-care (01) ==
LOC: WPOUT 17:55 → WP 17:55
PROVIDERS: PCP Family Medicine; Referring Provider Obstetrics & Gynecology; Visit Provider Obstetrics & Gynecology
DX: Z34.83 Encounter for supervision of other normal pregnancy, third trimester (principal); Z79.82 Long term (current) use of aspirin; Z79.899 Other long term (current) drug therapy
CPT/HCPCS: 59025; 59050; 84112; 99221; G0378

== ENCOUNTER 2024-12-29 12:35 | Outpatient (CLI) | payer OTHER, SELFPAY ==
[2024-12-29 12:43] VITALS: PULSE 93; O2SAT 99
[2024-12-29 12:48] VITALS: PULSE 87; O2SAT 98
[2024-12-29 12:51] VITALS: RESP 18; TEMP 36.8
[2024-12-29 12:52] VITALS: BP 134/83; PULSE 86
[2024-12-29 12:53] VITALS: PULSE 91; O2SAT 99
--- NOTE | 2024-12-29 16:30 | NURSING ---
1325-pt was seen in the office prior to coming to unit for NST
--- NOTE | 2025-01-03 09:32 | OB.TRI.HP_ITS ---
HPI - General HPI Narrative CHUCKY PALACIOS, is a 29 F who presents at 34w1d with equivocal NST in office. Denied any complaints of contractions, leakage of fluid, or vaginal bleeding. complaint of decreased movement and came in for appointment. Equivocal NST and sent to hospital for further evaluation. Maternal Data Information PABLO Calculator Estimated Delivery Date Method Current WG Current Estimate 02/08/25 [facility] 34w 6d [facility] History (Updated 12/31/24 @ 07:[address] Gabi Emanuel MD) Attention deficit disorder of childhood with hyperactivity Depression Anxiety Gestational diabetes False labor, antepartum Fungal dermatitis Acute bronchitis Contact with or suspected exposure to other viral communicable disease Decreased movement Acute urinary retention Threatened in second trimester Spontaneous Right wrist sprain Home Medications ?Medication ?Instructions ?Recorded ?Last Taken ?Type ferrous sulfate 325 mg (65 mg 325 mg PO DAILY anemia 0 05/26/21 12/28/24 19:00 History iron) tablet (iron) 325 mg vit with calcium-iron 1 tab PO DAILY pregnanc y 05/26/21 12/29/24 05:00 History fum-folic acid 60 mg iron-1 mg 1 TAB tablet famotidine 20 mg tablet 40 mg PO BID heart burn 1003/0712/29/24 05:00 History 40 docusate sodium 100 mg tablet 100 mg PO BID PRN consti pation #60 07/09/21 12/29/24 05:00 Rx tabs 100 mg aspirin 81 mg chewable tablet 1 tab PO DAILY 12/26/24 12/28/24 19:00 History 1 TAB fluoxetine 20 mg capsule (Prozac) 20 mg PO DAILY 12/2612/29/24 05:00 History 20 mg insulin NPH isoph U-100 human 100 16 unit subcut QHS 0 12/29/24 12/28/24 21:00 History unit/mL (3 mL) subcutaneous pen 16 uni ts (Humulin N NPH U-100 Insulin KwikPen) insulin lispro 100 unit/mL 4 unit subcut QPM 12/29/24 12/28/24 17:00 History subcutaneous solution (Admelog 4 units U-100 Insulin lispro) insulin lispro 100 unit/mL 8 unit subcut .qam 12/29/24 12/29/24 05:00 History subcutaneous solution (Admelog 8 units U-100 Insulin lispro) Allergy/AdvReac Type Severity Reaction Status Date / Time azithromycin Allergy Rash Verified 12/30/24 19:37 Surgical History Hx of dilation and curettage H/O adenoidectomy Hx of tonsillectomy [place] teeth extracted Social History household members: significant other Smoking Status: Never smoker alcohol intake: never substance use type: does not use History 4 Elective abortions Hx Para 1 Spontaneous abortions Hx # Term Pregnancies Ectopic pregnancies Hx # Pregnancies Multiple births # of living children NST FHR Rate Baby A Baseline: 140 Variability:: Moderate Decelerations:: None NST Reactive:: Yes Uterine Activity:: None Assessment & Plan (1) Decreased movement: QUALIFIERS: Fetus number: single or unspecified fetus Trimester: third trimester Qualified Code(s): O36.8130 - Decreased movements, third trimester, not applicable or unspecified (2) 34 weeks gestation of : PLAN: Plan 1) NST reactive 2) D/C home
== END 2024-12-29 13:25 | disposition home or self-care (01) ==
LOC: WPOUT 12:38 → WP 12:38
PROVIDERS: PCP Family Medicine; Referring Provider Advanced Practice Midwife; Visit Provider Advanced Practice Midwife
DX: O36.8130 Decreased fetal movements, third trimester, not applicable or unspecified (principal); Z79.4 Long term (current) use of insulin; Z79.82 Long term (current) use of aspirin; Z79.899 Other long term (current) drug therapy; Z3A.34 34 weeks gestation of pregnancy
CPT/HCPCS: 59025; 59050; 99221; G0378

== ENCOUNTER 2024-12-30 18:48 | Outpatient (CLI) | payer OTHER, SELFPAY ==
[2024-12-30 19:34] VITALS: RESP 16; TEMP 36.9; BMI 49.2
[2024-12-30 20:08] LABS: Mucous, Urine 0 SEEN /hpf (<or=2+)
[2024-12-30 20:14] LABS: Absolute Neutrophil Count 9.6 X10^3/uL (2.0-7.7); Basophil# 0.06 X10^3/uL; Basophil% 0.4 % (0-1); Eosinophil# 0.19 X10^3/uL; Eosinophils% 1.4 % (0-5); Hematocrit 35.6 % (37-47); Hemoglobin 12.4 g/dL (12.0-15.0); Lymphocyte % 19.7 % (19-41); Mean Corp Hgb Conc 34.8 g/dL (32-36); Mean Corpuscular Hgb 29.9 pg (27.0-32.0); Mean Corpuscular Volume 85.8 fL (81-99); Mean Platelet Vol. 10.3 fl (6.2-12.0); Monocyte# 0.98 X10^3/uL; Monocyte% 7.2 % (0-10); NRBC Flagged by Analyzer 0 % (0-5); Neutrophil # 9.59 X10^3/uL (2.7-7.7); Neutrophil % 70.1 % (47-70); Platelet Count 209 K/mm3 (150-450); RBC Distribution Width CV 13.4 % (11.6-14.6); RBC Distribution Width SD 41.8 fl (35.1-43.9); Red Blood Count 4.15 M/mm3 (4.2-5.4); White Blood Count 13.7 K/mm3 (4.4-11.0)
[2024-12-30 20:15] LABS: Color, Urine Yellow (Yellow); Glucose, Dipstick Normal (Normal); Ketone-Dipstick Negative (Negative); Leukocyte Esterase-Dipstick Negative /ul (Negative); Nitrite-Dipstick Negative (Negative); Urine Bilirubin Dipstick Negative (Negative); Urine Urobilinogen Normal (Normal)
--- NOTE | 2024-12-30 20:15 | OB.TRI.HP_ITS ---
HPI - General General Date of Admission: 12/30/24 Date of Service: 12/30/24 Chief Complaint: decreased movement HPI Narrative CHUCKY PALACIOS, is a 29 F who presents with decreased movement all day. Kick counts not adequate. Upon arrival also complains of contractions, nausea, abdomen pain, MEDINA. She has presented to triage now 5 times in the last week with various complaints. BPs 140s/80s. PIH labs normal. Symptoms improved with tylenol, mylicon, and zofran Maternal Data Information PABLO Calculator Estimated Delivery Date Method Current WG Current Estimate 02/08/25 Manual 34w 3d Final PABLO: 02/08/25 Gestational age: 34+2 [facility] Medical History (Updated 12/31/24 @ 07:[address] Gabi Emanuel MD) Attention deficit disorder of childhood with hyperactivity Depression Anxiety Gestational diabetes False labor, antepartum Fungal dermatitis Acute bronchitis Contact with or suspected exposure to other viral communicable disease Decreased movement Acute urinary retention Threatened in second trimester Spontaneous Right wrist sprain Home Medications ?Medication ?Instructions ?Recorded ?Last Taken ?Type ferrous sulfate 325 mg (65 mg 325 mg PO DAILY anemia 0 05/26/21 12/28/24 19:00 History iron) tablet (iron) 325 mg vit with calcium-iron 1 tab PO DAILY pregnanc y 05/26/21 12/29/24 05:00 History fum-folic acid 60 mg iron-1 mg 1 TAB tablet famotidine 20 mg tablet 40 mg PO BID heart burn 10/0 03/0712/29/24 05:00 History 40 docusate sodium 100 mg tablet 100 mg PO BID PRN rory saavedra #60 07/09/21 12/29/24 05:00 Rx tabs 100 mg aspirin 81 mg chewable tablet 1 tab PO DAILY 12/26/24 12/28/24 19:00 History 1 TAB fluoxetine 20 mg capsule (Prozac) 20 mg PO DAILY 12/2612/29/24 05:00 History 20 mg insulin NPH isoph U-100 human 100 16 unit subcut QHS 0 12/29/24 12/28/24 21:00 History unit/mL (3 mL) subcutaneous pen 16 uni ts (Humulin N NPH U-100 Insulin KwikPen) insulin lispro 100 unit/mL 4 unit subcut QPM 12/29/24 12/28/24 17:00 History subcutaneous solution (Admelog 4 units U-100 Insulin lispro) insulin lispro 100 unit/mL 8 unit subcut .qam 12/29/24 12/29/24 05:00 History subcutaneous solution (Admelog 8 units U-100 Insulin lispro) Allergy/AdvReac Type Severity Reaction Status Date / Time azithromycin Allergy Rash Verified 12/30/24 19:37 Surgical History Hx of dilation and curettage H/O adenoidectomy Hx of tonsillectomy [place] teeth extracted Social History household members: significant other Smoking Status: Never smoker alcohol intake: never substance use type: does not use History 4 Elective abortions Hx Para 1 Spontaneous abortions Hx # Term Pregnancies Ectopic pregnancies Hx # Pregnancies Multiple births # of living children NST FHR Rate Baby A Baseline: 145 Variability:: Moderate Accelerations:: 15 x 15 Decelerations:: None NST Reactive:: Yes Uterine Activity:: quiet Assessment & Plan (1) 34 weeks gestation of : (2) Decreased movement: QUALIFIERS: Fetus number: single or unspecified fetus Trimester: third trimester Qualified Code(s): O36.8130 - Decreased movements, third trimester, not applicable or unspecified PLAN: Plan Discharge home
[2024-12-30 20:43] LABS: ALB/GLOB Ratio 1.2 RATIO (0.9-2.4); AST(SGOT) 13 U/L (<=31); Alanine Aminotransfer ALT/SGPT 11 U/L (<=34); Albumin, Serum 3.6 g/dL (3.5-5.0); Alkaline Phosphatase 91 U/L (35-104); Anion Gap 12 (5-15); BUN 12 mg/dL (4-19); BUN/Creat Ratio 22.2 RATIO (10-20); Calcium,Total 9.2 mg/dL (7.6-11.0); Carbon Dioxide 20.6 mmol/L (21.0-32.0); Chloride 106 mmol/L (98-108); Creatinine, Serum 0.56 mg/dL (0.70-1.20); EST Glomerular Filtration Rate 127 (>60); Estimated Creatinine Clearance 200.44 ml/min (50-250); Globulin 3.1 g/dL (2.2-4.2); Glucose 99 mg/dL (70-99); Potassium 3.9 mmol/L (3.3-5.1); Protein, Total 6.6 g/dL (5.9-8.4); Protein, Urine (Random) < 6.0 mg/dL (0.0-12.0); Protein:Creat Ratio 276 mg/g CRE (0-200); Sodium Level 138 mmol/L (133-145); Total Bilirubin 0.21 mg/dL (0.00-1.30)
[2024-12-30 20:59] LABS: Occult Blood-Urine 10 /ul (Negative); Protein-Dipstick 15 mg/dl (Negative); Urine Clarity Sl. Cloudy (Clear)
[2024-12-30] MEDS: SimETHICONE 80 MG Chewable Tablet PO (21:01)
[2024-12-30] MEDS: Ondansetron ODT 4 MG Tablet PO (21:02)
[2024-12-30] MEDS: Acetaminophen 500 MG Tablet 1000 MG PO (21:02)
[2024-12-30 21:04] LABS: Bacteria 1+ /hpf (None Seen)
[2024-12-30 21:05] LABS: Red Blood Cells-Urine 5-10 SEEN /hpf (0-5); Squamous Epithelial Cells - UA 5-10 SEEN /hpf (5-10); White Blood Cells 5-10 SEEN /hpf (0-5)
== END 2024-12-30 21:11 | disposition home or self-care (01) ==
LOC: WPOUT 18:52 → WP 18:52
PROVIDERS: PCP Family Medicine; Referring Provider Obstetrics & Gynecology; Visit Provider Obstetrics & Gynecology
DX: O36.8190 Decreased fetal movements, unspecified trimester, not applicable or unspecified (principal); Z3A.34 34 weeks gestation of pregnancy
CPT/HCPCS: 36415; 59025; 59050; 80053; 81001; 82570; 84156; 85025; 99221; G0378

== ENCOUNTER 2025-01-22 09:38 | Inpatient (IN) | payer OTHER, SELFPAY ==
--- NOTE | 2025-01-13 15:39 | HP.PCM_ITS ---
History and Physical Date of Admission: 01/22/25 HPI: The patient is a 29 year old female presenting for pre-operative visit. She is scheduled for and tubal sterilization, for previous c/s, poorly controlled GDM and sterilization request on 01/22/25. Procedure discussed along with risks, benefits and complications. Other alternatives discussed for management. Consent form signed? Yes. ? ? PAST MEDICAL HISTORY PAST MEDICAL HISTORYDiagnosisDate?Anemia??Angiomyolipoma of left kidney??[address] 01/2024?Asymptomatic varicose veins??Central sleep apnea??Depression/anxiety??Diabetes, gestational (HCC)??GERD (gastroesophageal reflux disease)??H/O Clostridium difficile oazxlcbku62/07/2018?History of gestational diabetes in prior , currently (HCC)06/18/2024?Morbid obesity (HCC)?? depression?? (HCC)?? Due date 02/08, C section 02/02 ? ? PAST SURGICAL HISTORY PAST SURGICAL HISTORYProcedureLateralityDate? ASSIST ONLY?06/2021?D&C, DIAG AND/OR THERAPEUTIC?2019?Pt reported?PAST SURGICAL HISTORY [id number]? arthroscopy of shoulder?TONSILLECTOMY & ADENOIDECTOMY <AGE 13? CURRENT MEDICATIONS Current Outpatient MedicationsMedicationSigDispenseRefill?insulin NPH subcutaneous penInject 36 Units subcutaneously as directed. 20 units at bedtime, 116 units w/ breakfast3 mL1?diphenhydrAMINE (BENADRYL) 25 mg capsuleTake 1 capsule by mouth every 6 hours as needed (insomnia, itching or headache).30 capsule1?metoclopramide HCl (REGLAN) 5 mg tabletTake 1 tablet by mouth two times a day as needed (headache).15 tablet1?insulin lispro (ADMELOG SOLOSTAR U-100 INSULIN) 100 unit/mLInject 8 units with breakfast and 4 units with dinner. Subcutaneously???ferrous sulfate 325 mg (65 mg iron) tabletTake 1 tablet by mouth every other day.30 tablet2?docusate sodium (COLACE) 100 mg capsuleTake 1 capsule by mouth two times a day as needed for constipation.60 capsule1?insulin needles, DISPOSABLE, (PEN NEEDLE) 31 gauge x 5/161 Each as directed.100 Each1?Magnesium Oxide 420 mg tabTake 1 tablet by mouth once daily.100 tablet2?Blood-Glucose MeterUse as directed to check glucose levels up to seven t imes daily.1 Each0?blood sugar diagnostic test stripUse as directed to check glucose levels up to seven times daily.200 Strip8?LancetsUse as directed to check glucose levels up to seven times daily.200 Each8?alcohol swabs (ALCOHOL PREP PADS)Use as directed to check glucose levels up to seven times daily.200 Each8?famotidine (PEPCID) 40 mg tabletTake 1 tablet by mouth every afternoon.30 tablet3?FLUoxetine (PROZAC) 20 mg capsuleTake 1 capsule by mouth once daily.30 capsule2?aspirin, enteric coated (ECOTRIN LOW STRENGTH) 81 mg EC tabletTake 1 tablet by mouth once daily.90 tablet3? Efdmmlrw-Zk-Kgj-Fe-FA tabTake 1 tablet by mouth once daily. With folic acid and DHA as covered by insurance.30 ?No current facility-administered medications for this visit. ? ? ALLERGIES: Azithromycin ? PERSONAL HISTORY: SOCIAL HISTORY Social History?Tobacco Use?Smoking status:Never?Smokeless tobacco:NeverVaping Use?Vaping status:Never UsedSubstance Use Topics?Alcohol use:Never?Drug use:Never ? FAMILY HISTORY: FAMILY HISTORY FAMILY HISTORY ProblemRelationAge of Onset?Blood ClotsMother??No Known ProblemsFather??Hearing LossSister??Blood ClotsSister?? during ?No Known ProblemsBrother??DiabetesMaternal Grandmother??Kidney DiseaseMaternal Grandmother??No Known ProblemsMaternal Grandfather??No Known ProblemsPaternal Grandmother??No Known ProblemsPaternal Grandfather??No Known ProblemsDaughter? ? ? REVIEW OF SYMPTOMS: GENERAL: denies fevers or chills ENDOCRINOLOGY: has not been on steroids Cardiology : denies palpitations or chest pain Respiratory: denies SOB or cough Hematology: denies history of prolonged bleeding or easy bruising or VTE Allergy: Denies history of personal or family history of allergy to anesthesia ? PHYSICAL EXAMINATION: ? VITALS: Blood pressure 128/84, pulse 91, weight 130.6 kg (288 lb), last menstrual period 05/04/2024. ? GENERAL: The patient is well nourished, well hydrated in no acute distress. , The patient is oriented to time, place, and person. NECK: Supple. No lynphadenopathy, normal thyroid, no thyromegaly. LUNGS: Clear to auscultation bilaterally. no wheezes, rhonchi or rales HEART: Regular rate and rhythm, Normal heart sounds, and No murmurs or gallops GENITALIA: Normal external genitalia, Urethral meatus normal, Bladder nontender, normal vagina and normal vaginal tone, normal cervix, normal uterus, size and consistency, normal adnexa without masses or tenderness, and perineum WNL WET PREP: Not indicated ? IMPRESSION: Estimated Date of Delivery: 02/08/25 previous c/s, poorly controlled GDMA2, sterilization request ? PLAN: The risks/benefits/alternatives and personal involved for the planned c- s and tubal sterilization were reviewed with the patient. Her questions were answered to her satisfaction and she desires to proceed. Consent was signed. I reviewed with her postop instructions and expectations. ? ? I have reviewed and updated past medical and surgical history, medications and allergies Assessment & Plan Assessment/Plan (1) High risk multigravida in third trimester: (2) Previous delivery affecting : (3) 37 weeks gestation of : (4) Sterilization: (5) Gestational diabetes requiring insulin: (6) Maternal obesity syndrome in third trimester: (7) BMI 45.0-49.9, adult:
[2025-01-22] VITALS (14 sets, daily range): BP systolic 100–137; BP diastolic 43–100; PULSE 81–105; RESP 14–18; TEMP 36.3–36.7; O2SAT 94–98; BMI 49.8
[2025-01-22] MEDS: Lactated Ringers 1,000 ML 999 ML IV (10:00)
[2025-01-22 10:10] LABS: Absolute Lymphocyte Count 2.06 X10^3/uL (0.83-4.51); Absolute Neutrophil Count 8.3 X10^3/uL (2.0-7.7); Basophil# 0.03 X10^3/uL; Basophil% 0.3 % (0-1); Eosinophil# 0.08 X10^3/uL; Eosinophils% 0.7 % (0-5); Hematocrit 36.1 % (37-47); Hemoglobin 12.4 g/dL (12.0-15.0); Lymphocyte # 2.06 X10^3/ul (0.83-4.51); Lymphocyte % 18.1 % (19-41); Mean Corp Hgb Conc 34.3 g/dL (32-36); Mean Corpuscular Hgb 29.3 pg (27.0-32.0); Mean Corpuscular Volume 85.3 fL (81-99); Mean Platelet Vol. 10.7 fl (6.2-12.0); Monocyte# 0.83 X10^3/uL; Monocyte% 7.3 % (0-10); NRBC Flagged by Analyzer 0 % (0-5); Neutrophil % 72.6 % (47-70); Platelet Count 210 K/mm3 (150-450); RBC Distribution Width CV 13.4 % (11.6-14.6); RBC Distribution Width SD 41.4 fl (35.1-43.9); Red Blood Count 4.23 M/mm3 (4.2-5.4); White Blood Count 11.4 K/mm3 (4.4-11.0)
[2025-01-22] MEDS: Lactated Ringers 1,000 ML 150 ML IV (10:55)
[2025-01-22 10:57] LABS: Syphilis Antibodies Nonreactive (Nonreactive)
[2025-01-22 11:03] LABS: Bedside Glucose 81 mg/dL (74-106)
[2025-01-22] MEDS: Sodium Citrate/Citric Acid 30 ML UDC PO (11:55)
[2025-01-22] MEDS: Acetaminophen 500 MG Tablet 1000 MG PO ×2 (11:55→18:15)
[2025-01-22] MEDS: Cefazolin 3 GM in 0.9% Normal Saline (100mL Bag) 100 ML IV (12:30)
[2025-01-22] MEDS: Methylergonovine 0.2 MG/ML Ampul IM (12:54)
--- NOTE | 2025-01-22 13:23 | EX.PCM.OBRPT ---
Assessment & Plan (1) Previous delivery affecting : (2) High risk multigravida in third trimester: (3) Sterilization: (4) Gestational diabetes requiring insulin: (5) Maternal obesity syndrome in third trimester: (6) BMI 45.0-49.9, adult: (7) delivery delivered: Maternal Data Information PABLO Calculator Estimated Delivery Date Method Current WG Current Estimate 02/08/25 Manual 37w 4d Final PABLO: 02/08/25 Gestational age: 37 4/7 Operative Report (OB) Details Procedure Type: low transverse (with bilateral salpingectomy) Date of Procedure: 01/22/25 Procedure Start Time: 12:42 Procedure Stop Time: 13:28 Time of Delivery: 12:49 Pre-Operative Diagnosis: Repeat Elective , Desires elective sterilization and Other Other Pre-Operative diagnosis: poorly controlled GDMA2 Post-Operative Diagnosis: Same as Pre-operative diagnosis Classification: Scheduled Type of Anesthesia: Spinal Antibiotic Given: Ancef 3 grams IV x1 Drain: Noble to straight drain Estimated Blood Loss: 900 Fluids Replaced: 1500 cc Findings Description of surgery: The patient was taken to the operating room. She was prepped and draped in the dorsal supine position with a leftward tilt. A Pfannenstiel skin incision was made approximately 2 cm above the symphysis pubis and carried through to underlying layer fascia with the scalpel. The fascia was incised incised in the midline and extended laterally with the Campbell scissors. The fascia was dissected off the rectus muscles with blunt and sharp dissection. The rectus muscles were in the midline and the peritoneum was entered bluntly. The peritoneal incision was stretched and the bladder blade was placed. The uterine incision was made in a low transverse fashion with the scalpel and extended superiorly and inferiorly with blunt dissection. The amniotic membranes were ruptured bluntly and clear amniotic fluid returned. The infant's head was brought to the incision in the flexed position and delivered without difficulty. The remainder of the was delivered with gentle traction and fundal pressure in the standard fashion. The mouth and nares were bulb suctioned. The cord was clamped and cut as the infant was stimulated. Cord clamping was delayed 30 seconds. The was handed off to the waiting nursing staff. The placenta was delivered with fundal massage and gentle traction in the standard fashion. The uterus was exteriorized and cleared of all clots and debris. The cervix was dilated with a ring forcep. The uterine incision was closed with #1 Vicryl in a running locked fashion. A second layer of the same suture was used in an imbricating fashion to obtain hemostasis. The incision was examined and was found to be hemostatic. Hemablast was placed over the incision as there was some oozing from the peritoneal surfaces. The uterus was placed back into the peritoneal cavity and hemostasis was again confirmed. The rectus muscles were examined and any bleeding was Bovie cauterized. The parietal peritoneum and rectus muscles were closed en bloc with an 0 Vicryl running suture. Some Hemablast was placed over the muscles. The rectus fascia was examined and any bleeding was Bovie cauterized and the rectus fascia was closed with #1 PDS suture in a running standard fashion. The subcutaneous tissue was examining and any bleeding was Bovie cauterized. The subcutaneous tissue was reapproximated with 3-0 Vicryl suture. The skin was closed in a subcuticular fashion by the SLOTS MANAGER with me present in the labor and delivery suite. I performed the remainder of the procedure with assistance. All sponge, lap, and needle counts were correct. The patient was taken to her room for recovery in a stable condition. Surgical findings: Normal uterus tubes and ovaries normal placenta with three-vessel cord vigorous male infant Amniotic Membrane Rupture Type: Artificial Amniotic Fluid Description: Clear Placental Delivery Description: Expressed Placenta Disposition: Sent to Pathology Specimen collected: Yes Description of specimen(s) removed: Placenta and bilateral fallopian tube Cord Vessel Description: 3 Vessels Cord Entanglement: None Cord Gases: ABG and VBG Infant A gender: Male (Ayden 6lb 8 oz) (1 minute): 8 (5 minute): 8 Delayed Cord Clamping: Yes Plant Protection Supervisor discharge specialist: Yes Rfid Strategist: Ban Sanford Tasks completed by doctor assistant: Closing, Dissecting tissue and Retracting Additional executive staff assistant?: Yes Additional Cut Off Tender Glass #2: Syeda Byrd MS3 Tasks completed by executive staff assistant #2: Closing and Retracting Additional executive staff assistant?: No Complications Complications: No Admit VTE Documentation VTE Present on Admission: No VTE Mechan Device Prophylaxis: SCD's VTE Pharm Prophylaxis Ordered: Yes
[2025-01-22] MEDS: Oxytocin 15 Units/NS 250ml 15 UNITS/250 ML IV.SOLN 83 UNITS IV (13:40)
--- NOTE | 2025-01-22 13:49 | FALS_PTH ---
PATIENT: CHUCKY PALACIOS LOC: [facility] U#:[id number] AGE/SX: ROOM: WP007 RE01/22/[address]: Dr. Vandana Grijalva MD : 1995 BED: 1 DIS: 01/24/2025 SPEC #: [id number] RECD: 01/22/25 14:45 STATUS: JAMAAL REMontez #: [id number] ALMA ROSA: 01/22/25 13:[address]: Vandana Grijalva DEPT: SURGICAL PATHOLOGY RECD BY: Omid Sanchez ENTERED: 01/22/25 15:09 SP TYPE: FALL TUBES OTHR DR: Dr. Vesta Aldana MD Tissues: A - Fallopian tube Procedures: Surgery Specimen Level II HEADER OPERATION: Tubal ligation PRE-OP DIAGNOSIS: Tubal / sterilization TISSUE SUBMITTED: A- Bilateral fallopian tubes MICROSCOPIC DIAGNOSIS A. Bilateral fallopian tubes, sterilization, bilateral salpingectomy: * Right: no specific pathologic change with complete luminal cross-section confirmed. * Left: no specific pathologic change with complete luminal cross-section confirmed. MICROSCOPIC DESCRIPTION Slides are reviewed. GROSS DESCRIPTION A. Received fresh in a container labeled with the patient's name, date of , and stitch on RT tube are 2 fimbriated and oriented fallopian tube segments, the right received with a stitch. Each measures 6.5 cm in length with an average diameter of 0.7 cm. Each displays a novak-pink, smooth and glistening serosa with an unremarkable fimbriated end. The right tube exhibits a 0.8 x 0.5 x 0.5 cm paratubal cyst. Serial sections of each reveal a pinpoint lumen. Charge Weigher sections:A1. Right tubeA2. Left tube [facility] 01-22-2025 CPT: 49008k2
[2025-01-22] MEDS: 0.9% Saline Lock 10 ML Syringe IV ×2 (14:29→16:31)
[2025-01-22] MEDS: Ketorolac 30 MG/ML Syringe IV ×2 (14:29→20:13)
[2025-01-22 14:59] LABS: Pathology Specimen OB SEE PATHOLOGY REPORT
[2025-01-22 15:52] LABS: Bedside Glucose 95 mg/dL (74-106)
[2025-01-22] MEDS: HYDROmorphone 1 MG/ML Syringe IV (16:31)
[2025-01-22] MEDS: Lactated Ringers 1,000 ML 100 ML IV (16:32)
[2025-01-23] MEDS: Enoxaparin 40 MG/0.4 ML Syringe SC ×2 (00:03→12:55)
[2025-01-23] MEDS: Acetaminophen 500 MG Tablet 1000 MG PO ×4 (00:04→18:56)
[2025-01-23 01:31] VITALS: BP 118/69; PULSE 81; RESP 16; TEMP 36.6; O2SAT 98
[2025-01-23] MEDS: Ketorolac 30 MG/ML Syringe IV ×2 (02:35→08:43)
[2025-01-23 04:54] LABS: Hematocrit 31.2 % (37-47); Hemoglobin 10.6 g/dL (12.0-15.0); Mean Corpuscular Hgb 29.6 pg (27.0-32.0); Mean Corpuscular Volume 87.2 fL (81-99); Mean Platelet Vol. 10.6 fl (6.2-12.0); Platelet Count 178 K/mm3 (150-450); RBC Distribution Width CV 13.3 % (11.6-14.6); RBC Distribution Width SD 42.4 fl (35.1-43.9); Red Blood Count 3.58 M/mm3 (4.2-5.4); White Blood Count 13.9 K/mm3 (4.4-11.0)
[2025-01-23 05:04] LABS: Bedside Glucose 114 mg/dL (74-106)
[2025-01-23 05:56] VITALS: BP 111/46; PULSE 84; RESP 16; TEMP 36.3; O2SAT 100
[2025-01-23] MEDS: 0.9% Saline Lock 10 ML Syringe IV (08:43)
--- NOTE | 2025-01-23 08:51 | PCM.PN.OB ---
Subjective Subjective Doing well per patient and nursing staff. Ambulating and taking PO without difficulty. Voiding and passing flatus. Pain controlled. Denies headache, visual changes, chest pain, shortness of breath, leg pain or increased bleeding. Lochia normal. Objective Data Objective Data Vital Signs: Vital Signs Temp Pulse Resp BP Pulse Ox O2 Del Method 97.3 F L 84 16 111/46 L 100 Room Air 01/23/25 05:56 01/23/25 05:56 01/23/25 05:56 01/23/25 05:56 01/23/25 05:56 01/23/25 05:56 Oxygen Delivery Method Room Air Weight: 290 lb 5.581 oz Body Mass Index (BMI) 49.8 Intake & Output: Intake and Output for Last 24 Hours 01/21/25 01/22/25 01/23/25 23:59 23:59 23:59 Intake Total 2165.31 / 2165.31 Output Total 2800 / 2800 950 / 950 Balance -634.69 / -634.69 -950 / -950 Lab / Micro Data 01/23/25 04:40 Labs: Laboratory Results - last 24 hr 01/22/25 10:00: WBC 11.4 H, RBC 4.23, Hgb 12.4, Hct 36.1 L, MCV 85.3, MCH 29.3, MCHC 34.3, RDW Std Deviation 41.4, RDW Coeff of Belle 13.4, Plt Count 210, MPV 10.7, Immature Gran % (Auto) 1.000 H, Neut % (Auto) 72.6 H, Lymph % (Auto) 18.1 L, Petroleum % (Auto) 7.3, Eos % (Auto) 0.7, Baso % (Auto) 0.3, Absolute Neuts (auto) 8.3 H, Absolute Lymphs (auto) 2.06, Nucleated RBC % 0, Syphilis Total Ab Nonreactive, Blood Type A POSITIVE, Antibody Screen NEGATIVE 01/22/25 10:31: POC Glucose 81 01/22/25 15:32: POC Glucose 95 01/23/25 04:35: POC Glucose 114 H 01/23/25 04:40: WBC 13.9 H, RBC 3.58 L, Hgb 10.6 L, Hct 31.2 L, MCV 87.2, MCH 29.6, MCHC 34.0, RDW Std Deviation 42.4, RDW Coeff of Belle 13.3, Plt Count 178, MPV 10.6 ROS Constitutional Constitutional: Reports systems reviewed and no addt'l complaints, except as documented; Denies headache(s) Eyes Eyes: Denies acute decrease in peripheral vision, blurry vision or change in vision ENT HEENT: Reports systems reviewed and no addt'l complaints, except as documented Cardiovascular Cardiovascular: Denies chest pain or dizziness Respiratory/Chest Respiratory/Chest: Denies cough, dyspnea, dyspnea on exertion, shortness of breath at rest or shortness of breath with exertion Gastrointestinal Gastrointestinal: Denies abdominal pain, diarrhea, nausea or vomiting Genitourinary Genitourinary: Denies abdominal discomfort Musculoskeletal Musculoskeletal: Denies limited range of motion Integumentary Integumentary: Reports systems reviewed and no addt'l complaints, except as documented Neurologic Neurologic: Reports systems reviewed and no addt'l complaints, except as documented Psychiatric Psychiatric: Reports systems reviewed and no addt'l complaints, except as documented Endocrine Endocrinology: Reports systems reviewed and no addt'l complaints, except as documented Hematologic/Lymphatic Hematologic/Lymphatic: Reports systems reviewed and no addt'l complaints, except as documented Allergic/Immunologic Allergic/Immunologic: Reports systems reviewed and no addt'l complaints, except as documented Physical Exam Const alert and oriented x3 General Appearance: cooperative Orientation / Consciousness: awake, oriented to person, oriented to place and oriented to time Exam Limitations: no limitations HEENT normocephalic Head and Scalp: normal to inspection, normocephalic and atraumatic Face and Sinus: normal facial exam Eyes General Eye: normal appearance of both eyes Neck full ROM Chest Chest: symmetrical chest wall rise Resp normal respiratory effort and normal air movement Auscultation: clear to auscultation bilaterally Cardio regular rate, regular rhythm, S1 normal heart sound, S2 normal heart sound, no murmurs, no rub, no gallops and no clicks GI normal to inspection, nondistended, normoactive bowel sounds and non-tender GI Narrative: Dressing dry and intact. Fundus firm 2 below U. appearance of the vagina normal Bladder / Kidney Exam: no CVA tenderness Back/Spine normal ROM Extremity normal to inspection and full ROM Skin no rashes or lesions noted Neuro oriented x3, CN's II-XII intact bilaterally and moves all extremities Sensorium / Orientation: awake, alert and oriented to person Motor Exam: clonus absent Deep Tendon Reflexes: Rt Patellar (L4): 2+ and Lt Patellar (L4): 2+ Assessment & Plan (1) delivery delivered: (2) Acute post-operative pain: PLAN: Plan 1) Routine POD#1 2) Vitals stable 3) I&O 4) Pain management 5) Bottle feeding 6) Planning D/C home tomorrow
[2025-01-23 08:55] VITALS: BP 121/54; PULSE 90; RESP 16; TEMP 36.8; O2SAT 100
[2025-01-23] MEDS: FLUoxetine 20 MG Capsule PO (11:20)
[2025-01-23] MEDS: Famotidine 20 MG Tablet PO (11:20)
[2025-01-23] MEDS: Senna/Docusate Sodium 1 Tablet PO (11:20)
[2025-01-23 11:50] VITALS: BP 113/54; PULSE 85; RESP 16; TEMP 36.6; O2SAT 99
[2025-01-23] MEDS: oxyCODONE 5 MG Tablet PO ×2 (12:58→20:20)
[2025-01-23 16:00] VITALS: BP 108/40; PULSE 80; RESP 16; TEMP 36.3; O2SAT 100
[2025-01-23] MEDS: Naproxen 500 MG Tablet PO (17:24)
[2025-01-23 20:15] VITALS: BP 116/74; PULSE 89; RESP 16; TEMP 36.6
[2025-01-23] MEDS: SimETHICONE 80 MG Chewable Tablet PO (20:19)
[2025-01-24] MEDS: Enoxaparin 40 MG/0.4 ML Syringe SC (01:04)
[2025-01-24] MEDS: Acetaminophen 500 MG Tablet 1000 MG PO ×2 (01:05→06:57)
[2025-01-24] MEDS: Naproxen 500 MG Tablet PO ×2 (01:05→09:23)
[2025-01-24 01:14] VITALS: BP 115/72; PULSE 80; RESP 16; TEMP 36.6; O2SAT 98
[2025-01-24 08:00] VITALS: BP 114/79; PULSE 89; RESP 14; TEMP 36.7
--- NOTE | 2025-01-24 08:31 | PCM.DC.SUM ---
Providers Date of Admission: 01/22/25 Primary Care Physician: Dr. Vesta Aldana MD Reason For Visit: REPEAT Diagnosis Discharge Diagnosis (1) delivery delivered: Status: Acute Code(s): O82 - Encounter for delivery without indication (2) Acute post-operative pain: Status: Acute Code(s): G89.18 - Other acute postprocedural pain Medications at Discharge Home Medications ferrous sulfate 325 mg (65 mg iron) tablet (iron) 325 mg PO DAILY anemia 05/26/21 vit with calcium-iron fum-folic acid 60 mg iron-1 mg tablet 1 tab PO DAILY 05/26/21 famotidine 20 mg tablet 40 mg PO BID heart burn 06/22/21 docusate sodium 100 mg tablet 100 mg PO BID PRN constipation #60 tabs 07/09/21 fluoxetine 20 mg capsule (Prozac) 20 mg PO DAILY anxiety 12/26/24 insulin NPH isoph U-100 human 100 unit/mL (3 mL) subcutaneous pen (Humulin N NPH U-100 Insulin KwikPen) 20 unit subcut QHS 12/29/24 diphenhydramine HCl 25 mg capsule 25 mg PO Q6H PRN PRN preg 01/22/25 famotidine 40 mg tablet 40 mg PO DAILY preg 01/22/25 acetaminophen 500 mg tablet 1,000 mg (2 x 500 mg) PO Q6 #0 tabs 01/24/25 famotidine 20 mg tablet 20 mg PO DAILY #0 tabs 01/24/25 naproxen 500 mg tablet 500 mg PO Q8H #0 tabs 01/24/25 oxycodone 5 mg tablet 5 - 10 mg (1 - 2 x 5 mg) PO Q4H PRN PRN Pain Score 4-10 5 days #14 tabs 01/24/25 sennosides 8.6 mg-docusate sodium 50 mg tablet (Stimulant Laxative Plus) 1 - 2 tab PO DAILY #60 tabs 01/24/25 Hospital Course Operations section Procedures None Summary of Care Provided Minutes Spent on Discharge: 15 Hospital Course: Patient had section. Hospital course was uneventful. Physical Exam Narrative Patient seen at bedside. Sitting in chair at bedside. Denies headache, vision changes, SOB, or CP. Ambulating and voiding without difficulty. Passing flatus. Formula feeding. Pain controlled at this time. Desires discharge home today. Const alert and no apparent distress General Appearance: cooperative and comfortable Exam Limitations: no limitations HEENT normocephalic Eyes General Eye: normal appearance of both eyes Neck full ROM General: normal visual inspection Chest Chest: symmetrical chest wall rise Resp normal respiratory effort and normal air movement Effort and Inspection: symmetric chest movement Auscultation: clear to auscultation bilaterally Cardio regular rate and regular rhythm GI normal to inspection, nondistended, normoactive bowel sounds Back/Spine normal ROM Extremity full ROM and no calf tenderness General Extremity: normal exam except as noted Skin no rashes or lesions noted Wound Narrative: Dressing is dry and intact. Neuro CN's II-XII intact bilaterally Psych mental status grossly normal Weight / BMI Weight Weight: 290 lb 5.581 oz Body Mass Index (BMI) 49.8 ABG / Lab / Microbiology Data 01/23/25 04:40 D/C Instructions Discharge Diet: No restrictions Discharge Activity: May Drive (2 weeks) and May Shower May resume sexual activity in: 6-8 weeks Weight Bearing Status: Weight bearing as tolerated Lifting Restricted to (Lbs): 25 Call your doctor if your incision/area has: Continuous Slow Oozing, Sudden Increased Bleeding, Increased Pain/ Swelling, Increased Redness, Foul Smelling Discharge and Swelling at the incision site Call your doctor if you observe: Fever of 101 or Higher, Numbness or Tingling, Using more than 1 pad per hour, Shortness of breath, Dizziness, Swelling in the ankles, Chest pain, Calf discomfort and Uncontrolled pain Suture Line Care: Avoid Pulling/Pushing Remove Dressing in: 5 days (Remove yourself or call office and schedule appointment for dressing removal.) DC O2, CPAP, BIPAP Needs Home O2 Discharge instructions: No When: 5 days for dressing removal or 2 weeks for post appointment. Meaningful Use Info Meaningful Use Meaningful Use Diagnoses (Choose all that apply): None applicable Ischemic Stroke Statin Dosing Therapy Reference: STATIN DOSE THERAPY REFERENCE: * Patients > 75 years receive moderate or high dose statin therapy. * Patients 75 years or YOUNGER should receive HIGH intensity statin dose unless contraindicated. You will be required to document reason for non-treatment if statin daily dose does not meet guidelines. HIGH DOSE STATIN THERAPY DAILY Atorvastatin > than or = to 40 mg Rosuvastatin > than or = to 20 mg Amlodipine + Atorvastatin > than or = to 2.5/40 mg Ezetimibe + Simvastatin 10/80 mg Simvastatin 80mg Discharge Plan Admission Admit Date/Time: 01/22/25 09:38 Primary Reason for Your Visit: Repeat Section Attending Provider: Vandana Grijalva Primary Care Provider: Vesta Aldana Discharge Orders/Prescriptions Prescriptions: New sennosides-docusate sodium [Stimulant Laxative Plus] 8.6-50 mg Tablet 1 - 2 tab PO DAILY Qty: 60 0RF acetaminophen 500 mg Tablet 1,000 mg PO Q6 Qty: 0 0RF famotidine 20 mg Tablet 20 mg PO DAILY Qty: 0 0RF naproxen 500 mg Tablet 500 mg PO Q8H Qty: 0 0RF oxycodone 5 mg Tablet 5 - 10 mg PO Q4H PRN PRN (Reason: Pain Score 4-10) 5 Days Qty: 14 0RF Continued vit-iron fum-folic ac 60 mg iron-1 mg Tablet 1 tab PO DAILY ferrous sulfate [iron] 325 mg (65 mg iron) Tablet 325 mg PO DAILY fluoxetine [Prozac] 20 mg capsule 20 mg PO DAILY Discontinued magnesium oxide 420 mg tablet 420 mg PO DAILY metoclopramide HCl 5 mg tablet 5 mg PO BID PRN PRN (Reason: headache) aspirin 81 mg tablet,chewable 1 tab PO DAILY insulin lispro [Admelog U-100 Insulin lispro] 100 unit/mL solution 8 unit subcut BID Rx Instructions: morning and bedtime No Action famotidine 20 MG tablet 40 mg PO BID docusate sodium 100 mg tablet 100 mg PO BID PRN (Reason: constipation) Qty: 60 1RF famotidine 40 mg tablet 40 mg PO DAILY diphenhydramine HCl 25 mg capsule 25 mg PO Q6H PRN PRN (Reason: preg) Humulin N NPH Insulin KwikPen 100 unit/mL (3 mL) insulin pen 20 unit subcut QHS Referrals / Follow Up: Vesta Aldana MD [Primary Care Provider] - Disposition Disposition (needs filled in before D/C Order can be placed): Home, Self Care
[2025-01-24] MEDS: Senna/Docusate Sodium 1 Tablet PO (09:23)
[2025-01-24] MEDS: FLUoxetine 20 MG Capsule PO (09:23)
[2025-01-24] MEDS: Famotidine 20 MG Tablet PO (09:23)
--- NOTE | 2025-02-02 11:01 | CASEMGMT ---
Social Work Assessment Labor and Delivery Unit Patient Address:[facility][note 3] Dayna Patino [address] [place] [address] Phone number: [phone] Date of Referral: 01/22/25 Time of Referral:? 1628 Referred By: Dr. Grijalva Date of Intervention: 01/23/25?? Time of Intervention:? 1020 Reason for Referral:?mental health Sw completed chart review and acknowledges social work consult due to maternal mental health. Sw presented to bedside and introduced self to mother of baby (MOB- Ivone) and father of baby (FOB- Larry). Sw explained reason for sw involvement and completed psychosocial assessment. History obtained from: medical records, MOB and FOB Household composition: Currently residing in the family home is TRI CHEN, their three year old daughter: Abbey. [place] baby to be included in residence when ready for discharge. Parents deny any problems or concerns with housing, reporting it to be safe and secure. Patient's parent/guardian status:? ?MOB states that she and TRI have been together for 5 years after meeting each other while working together. No concerns reported regarding domestic violence or intimate partner violence. [place] baby is second baby for parents together. Medical History: ?GUSTAVO is 29 year old female who is 4, para 1- now 2 following labor and delivery of . GUSTAVO received routine care during with [facility]. GUSTAVO presented to hospital and delivered baby via on 01/22/25. Baby boy, [address], was born weighing 6lb 8oz with apgars of 8 and 8 at one and five minutes of life, respectfully. GUSTAVO is bottle feeding baby and MOB states that baby will be followed by Dr. Blair for pediatrics. Educational Status:? Both parents graduated from high school and MOB obtained her Associates degree. No problems with reading, learning or comprehension. Financial Status: Both parents are gainfully employed outside of the home. FOB works at [employer] and MOB works at [employer]. Infant Supplies:?? All necessary baby supplies obtained, including: care seat, safe sleep space, clothes, diapers and wipes. Childcare/Caregiver(s):? GUSTAVO reports that she will be the primary caregiver to baby, along with FOB. When both parents are working baby will be watched by maternal grandparents. Transportation:?? Both parents have their drivers license and reliable means of transportation, no barriers. Programs/Agencies Involved: ?GUSTAVO reports that she is not connected to any community resources that provide financial assistance as they are over income. Children Services/Legal Issues:??? No prior involvement with children services, no issues or concerns warranting referral to be made at this time. Behavioral Health Issues: ??Mental Health History:?FOB denies mental health diagnoses. MOB states that she has been diagnosed with anxiety and depression. MOB is prescribed Prozac to help her manage her mental health by her PCP.?MOB states that her mental health is situational, and has improved as she has gotten older. MOB states that she uses healthy and safe coping mechanisms when she starts to feel anxious. ? Substance Use History:?Parents deny substance use history prior to and during . ? Family History: Parents deny family history of substance use or significant mental health diagnoses. ? Drug Screens: ??No drug screens observed while completing chart review. Family/Social Stressors:? MOB and FOB deny and issues, concerns or stressors at this time. Support Systems: MOB identifies that maternal grandparents and FOB are her biggest supports. Depression/Shaken Baby/Safe Sleeping:? Sw educated parents on signs and symptoms of baby blues and depression and anxiety. MOB states that she did not experience any baby blues or symptoms after her daughter was born. MOB stats that she is knowledgeable of what to be mindful of during this period. FOB states that if MOB were to struggle he would be able to recognize if MOB were struggling, but he may now know how to help her. Sw assisted parents in discussing things that FOB could do to help MOB if she were to struggle with her mental health during this period. MOB states that she would also feel comfortable talking to her mom. Sw educated parents on shaken baby prevention and ABCs of safe sleep. Parents express understanding. ASSESSMENT:? MOB and baby admitted following labor and delivery of . MOB observed sitting in bedside chair comfortably and holding baby in loving manner. FOB sitting on couch. Both parents receptive to meeting with sw. MOB open and talkative with sw, FOB more reserved and answered questions when directly directed to him. MOB with mental health history positive for anxiety and depression. MOB is prescribed prozac by her primary care doctor. MOB states that the medication helped her a lot during her , stating that she did not feel anxious or down. When FOB was asked about being able to recognize if MOB were struggling with her mental health, FOB struggled to answer, and stated that he was not sure. Parents open to conversation and brainstorming how FOB can recognize if MOB were struggling and ways in which he can offer support. PLAN:? No other services requested or indicated. MOB and baby to be discharged when medically ready. Parents were provided literature regarding: signs and symptoms of baby blues and mood and anxiety disorders, Help Me Grow, shaken baby prevention, ABCs of safe sleep and a list of county resources that are available for them should any needs present themselves. Sierra Rendon, STENOTYPIST, JACK [employer]ER
== END 2025-01-24 10:20 | disposition home or self-care (01) | DRG 784 ==
PROVIDERS: Admitting Provider Obstetrics & Gynecology; PCP Family Medicine; Referring Provider Obstetrics & Gynecology; Visit Provider Obstetrics & Gynecology
PROC: 10D00Z1 Extraction of Products of Conception, Low, Open Approach (ICD-10-PCS; CPT 59514; principal; 2025-01-22 12:00)
DX: O24.424 Gestational diabetes mellitus in childbirth, insulin controlled (principal); O99.355 Diseases of the nervous system complicating the puerperium; F32.A Depression, unspecified; O99.214 Obesity complicating childbirth; F41.9 Anxiety disorder, unspecified; K21.9 Gastro-esophageal reflux disease without esophagitis; O99.344 Other mental disorders complicating childbirth; O99.62 Diseases of the digestive system complicating childbirth; O34.211 Maternal care for low transverse scar from previous cesarean delivery; G89.18 Other acute postprocedural pain; O99.02 Anemia complicating childbirth; Z30.2 Encounter for sterilization; Z37.0 Single live birth; Z86.59 Personal history of other mental and behavioral disorders; Z79.899 Other long term (current) drug therapy; Z3A.37 37 weeks gestation of pregnancy
CPT/HCPCS: 59025; 59050; 82962; 85025; 85027; 86780; 86850; 86900; 86901; 88302; 99221; A4216; G0378; J2405